=== PATIENT | female | born 1945 | race Caucasian/White ===

== ENCOUNTER 2016-08-26 11:28 | Inpatient (IN) | payer MEDICARE ==
[~2016-08-26] VITALS: Ht 165.1 cm; Wt 68.0 kg
[2016-08-26 11:30] VITALS: BP 145/66
[2016-08-26] MEDS ORDERED: Acetaminophen 650 MG SUPP RECTAL ONE ×2 (11:38→12:30)
[2016-08-26] MEDS ORDERED: CITALOPRAM HBR20 M1 ORAL (11:53)
[2016-08-26] MEDS ORDERED: ADVAIR 100-501 EACH INH (11:53)
[2016-08-26] MEDS ORDERED: ATORVASTATIN CA20 MG ORAL (11:53)
[2016-08-26] MEDS ORDERED: NAMENDA5 MG ORAL (11:53)
[2016-08-26] MEDS ORDERED: ASPIR 8181 MG ORAL (11:53)
[2016-08-26] MEDS ORDERED: AMLODIPINE BESY10 MG ORAL (11:53)
[2016-08-26] MEDS ORDERED: ABILIFY15 MG ORAL (11:53)
[2016-08-26 11:56] LABS: BASOPHILS % (AUTO) 0.4 % (0.0-2.0); LYMPHOCYTES % (AUTO) 13.3 % (20.0-45.0); MEAN CORPUSCULAR HEMOGLOBIN 32.2 PG (27.0-31.0); MEAN CORPUSCULAR HGB CONC 34.1 G/DL (32.0-36.0); MEAN CORPUSCULAR VOLUME 94 FL (80-99); MEAN PLATELET VOLUME 6.1 FL (6.5-10.1); MONOCYTES % (AUTO) 9.9 % (1.0-10.0); NEUTROPHILS % (AUTO) 76.4 % (45.0-75.0); PLATELET COUNT 341 K/UL (150-450); RED BLOOD COUNT 4.64 M/UL (4.20-5.40); RED CELL DISTRIBUTION WIDTH 11.3 % (11.6-14.8); WHITE BLOOD COUNT 16.5 K/UL (4.8-10.8)
[2016-08-26 12:09] LABS: APPEARANCE,URINE CLEAR; KETONES,URINE NEGATIVE (NEGATIVE); LEUKOCYTE ESTERASE ,URINE NEGATIVE (NEGATIVE); NITRITE,URINE NEGATIVE (NEGATIVE); PH,URINE 5 (4.5-8.0); PROTEIN,URINE 2+ (NEGATIVE); UROBILINOGEN,URINE NORMAL MG/DL (0.0-1.0)
[2016-08-26 12:10] LABS: TROPONIN I < 0.30 ng/mL (<=0.30)
[2016-08-26 12:11] LABS: ALBUMIN/GLOBULIN RATIO 1.5 (1.0-2.7); CALCIUM 9.8 mg/dL (8.6-10.2); CREATININE 1.1 mg/dL (0.5-0.9); GLOMERULAR FILTRATION RATE 49.3 mL/min (>60)
[2016-08-26] MEDS ORDERED: Piperacillin/Tazobactam 3.375 GM in NS 110 ML IVPB ONE (12:15)
[2016-08-26] MEDS ORDERED: Vancomycin 1 GM in NS 275 ML IVPB ONE (12:15)
[2016-08-26 12:16] LABS: REFLEX LACTIC ACID YES OR NO YES
--- NOTE | 2016-08-26 12:22 | Emergency Room Report ---
History of Present Illness General Chief Complaint: Altered Level of Consciousness Source: Medical Record, EMS (CAROLYN VARELA) Present Illness HPI The patient is a 71 yo F BIBA from [facility] presenting for ALOC. She has an extensive medical history including encephalopathy, dementia, HTN, COPD, hyperlipidemia. She is currently unable to provide history and responds sparsely with "yes" and "no". She denies any pain including CP and abd pain. She also denies BROWN, neck pain, SOB. Daughter has arrived and states that this is not typical for the patient as she is usually more verbal and more active. (CAROLYN VARELA P.A.) Allergies: Coded Allergies: NIACIN (Verified Allergy, Unknown, 08/26/16) Patient History Past Medical History: see triage record Pertinent Family History: none Reviewed Nursing Documentation: PMH: Agreed, PSxH: Agreed (CAROLYN VARELA P.AEmma) Nursing Documentation-PMH Past Medical History: No History, Except For Hx Hypertension: Yes Hx COPD: Yes (CAROLYN VARELA P.AEmma) Review of Systems All Other Systems: negative except mentioned in HPI (CAROLYN VARELA P.A.) Physical Exam Vital Signs Date Time Temp Pulse Resp B/P Pulse Ox O2 Delivery O2 Flow Rate FiO2 08/26/16 11:25 102.4 107 16 137/70 95 Room Air Sp02 EP Interpretation: reviewed, normal General Appearance: no apparent distress, GCS 15, lethargic Head: normocephalic, atraumatic Eyes: bilateral eye PERRL ENT: hearing grossly normal, no angioedema, uvula midline, other - dry mucus membranes Neck: normal inspection, thyroid normal, no bony tend, other - stiffness Respiratory: normal inspection, chest non-tender, lungs clear, normal breath sounds, no respiratory distress, no retraction, no accessory muscle use, no wheezing Cardiovascular #1: no edema, normal capillary refill, tachycardia, systolic murmur Gastrointestinal: normal bowel sounds, soft, no mass, non-distended, no guarding, no hernia Genitourinary: normal inspection, no CVA tenderness Musculoskeletal: back normal, other - lower extremity weakness. Unable to ambulate Neurologic: alert, responsive, sensory intact, motor weakness - lower extremeties Psychiatric: depressed affect Skin: normal color, no rash, normal turgor, other - hot to the touch Lymphatic: no adenopathy (CAROLYN VARELA P.A.) Procedures Lumbar Puncture Consent: Written - daughter Location: L4-L5 Anesthesia: 1% Lidocaine Volume Anesthetic (ccs): 5 Prep: bedadine Needle Size: 2 1/2 CSF: clear Post-Procedure: recumbent position Attempts: One Complications: none Patient Tolerated: Well (QUOC VARELAY P.A.) Medical Decision Making Diagnostic Impression: Primary Impression: Altered level of consciousness Additional Impression: Severe sepsis ER Course The pt is a 71 yo F presenting from nursing facility for F and ALOC DDx considered but not limited to: UTI, PNA, meningitis, CVA, among others PE: Febrile and tachycardic. NAD. Lethargic. L eye closed. No facial drooping + nuchal rigidity Lungs CTA bilat systolic murmur Skin is hot and dry. No ulcer. No erythema No edema Unable to move lower extremities CBC: leukocytosis with left shift CMP: Elevated AST/ALT CKMB elevated Lactate elevated UA: unremarkable CXR unremarkable Endorsed to Dr. Cast at 1330 for sepsis of unknown source at this time No obvious source of infection was found including urinalysis and CXR. Due to ALOC and stiff neck, LP will be performed. Pt was started on antibiotics and steroids prior to procedure. Written consent was obtained from daughter. The patient was prepped and draped in sterile fashion. The area was anesthetized with 1% lidocaine with out epinephrine. The needle was inserted at L4-L5. 4 sterile tubes were filled with 1mL of CSF. The needle was then removed and bandage was placed.Patient tolerated the procedure well and there were no complications CSF was clear. The pt will be admitted in serious but stable condition. Laboratory Tests Test 08/26/16 11:30 08/26/16 11:50 White Blood Count 16.5 K/UL (4.8-10.8) H Red Blood Count 4.64 M/UL (4.20-5.40) Hemoglobin 14.9 G/DL (12.0-16.0) Hematocrit 43.7 % (37.0-47.0) Mean Corpuscular Volume 94 FL (80-99) Mean Corpuscular Hemoglobin 32.2 PG (27.0-31.0) H Mean Corpuscular Hemoglobin Concent 34.1 G/DL (32.0-36.0) Red Cell Distribution Width 11.3 % (11.6-14.8) L Platelet Count 341 K/UL (150-450) Mean Platelet Volume 6.1 FL (6.5-10.1) L Neutrophils (%) (Auto) 76.4 % (45.0-75.0) H Lymphocytes (%) (Auto) 13.3 % (20.0-45.0) L Monocytes (%) (Auto) 9.9 % (1.0-10.0) Eosinophils (%) (Auto) 0.0 % (0.0-3.0) Basophils (%) (Auto) 0.4 % (0.0-2.0) Sodium Level 147 mEQ/L (135-145) H Potassium Level 3.0 mEQ/L (3.4-4.9) L Chloride Level 106 mEQ/L (98-107) Carbon Dioxide Level 25 mEQ/L (20-30) Anion Gap 16 (5-15) H Blood Urea Nitrogen 39 mg/dL (7-23) H Creatinine 1.1 mg/dL (0.5-0.9) H Estimate Glomerular Filtration Rate 49.3 mL/min (>60) Glucose Level 161 mg/dL (74-106) H Lactic Acid Level 2.70 mmol/L (0.66-2.22) H Calcium Level 9.8 mg/dL (8.6-10.2) Total Bilirubin 0.9 mg/dL (0.0-1.2) Aspartate Amino Transferase (AST) 140 U/L (5-40) H Alanine Aminotransferase (ALT) 74 U/L (3-33) H Alkaline Phosphatase 46 U/L (35-104) Total Creatine Kinase Pending Creatine Kinase MB 8.0 ng/mL (< 3.8) H Troponin I < 0.30 ng/mL (<=0.30) Total Protein 7.0 g/dL (6.6-8.7) Albumin 4.3 g/dL (3.5-5.2) Globulin 2.7 g/dL Albumin/Globulin Ratio 1.5 (1.0-2.7) Urine Color Yellow Urine Appearance Clear Urine pH 5 (4.5-8.0) Urine Specific [place] 1.020 (1.005-1.035) Urine Protein 2+ (NEGATIVE) H Urine Glucose (UA) Negative (NEGATIVE) Urine Ketones Negative (NEGATIVE) Urine Occult Blood 1+ (NEGATIVE) H Urine Nitrite Negative (NEGATIVE) Urine Bilirubin Negative (NEGATIVE) Urine Urobilinogen Normal MG/DL (0.0-1.0) Urine Leukocyte Esterase Negative (NEGATIVE) Urine RBC 0-2 /HPF (0 - 2) Urine WBC 0-2 /HPF (0 - 2) Urine Squamous Epithelial Cells Few /LPF (NONE/OCC) Urine Bacteria Few /HPF (NONE) Lab Results Impression CBC: leukocytosis with left shift CMP: Elevated AST/ALT CKMB elevated Lactate elevated UA: unremarkable (CAROLYN VARELA) ER Course Please see the note by Dr. Edmonds. The patient underwent a lumbar puncture. 2 WBC and 43 red cells. Protein and glucose are normal. This excludes bacterial meningitis. The patient is improving with her mentation and states that she wants to eat. I am uncomfortable about this as her mentation, though improved, is still not baseline. Also some history of musculoskeletal weakness. We will continue IV hydration. Need to repeat a temperature as she's feeling cold. Patient is improved but still ill and being admitted to telemetry bed. Patient had chills. Tylenol as repeated and also IV hydration was continued. The daughter states that [facility] the [facility] told her that she had a gallstone. The patient is examined and there is no abdominal tenderness at this time. LFTs are slightly elevated but bilirubin is normal. In addition the daughter states that a yazidism there is a question whether the patient has Parkinson's. CT ordered. + CVA - unclear when this occurred - not hyperacute Improved and admitted to [facility]. Laboratory Tests Test 08/26/16 11:30 08/26/16 11:50 08/26/16 14:09 08/26/16 14:13 White Blood Count 16.5 K/UL (4.8-10.8) H Red Blood Count 4.64 M/UL (4.20-5.40) Hemoglobin 14.9 G/DL (12.0-16.0) Hematocrit 43.7 % (37.0-47.0) Mean Corpuscular Volume 94 FL (80-99) Mean Corpuscular Hemoglobin 32.2 PG (27.0-31.0) H Mean Corpuscular Hemoglobin Concent 34.1 G/DL (32.0-36.0) Red Cell Distribution Width 11.3 % (11.6-14.8) L Platelet Count 341 K/UL (150-450) Mean Platelet Volume 6.1 FL (6.5-10.1) L Neutrophils (%) (Auto) 76.4 % (45.0-75.0) H Lymphocytes (%) (Auto) 13.3 % (20.0-45.0) L Monocytes (%) (Auto) 9.9 % (1.0-10.0) Eosinophils (%) (Auto) 0.0 % (0.0-3.0) Basophils (%) (Auto) 0.4 % (0.0-2.0) Sodium Level 147 mEQ/L (135-145) H Potassium Level 3.0 mEQ/L (3.4-4.9) L Chloride Level 106 mEQ/L (98-107) Carbon Dioxide Level 25 mEQ/L (20-30) Anion Gap 16 (5-15) H Blood Urea Nitrogen 39 mg/dL (7-23) H Creatinine 1.1 mg/dL (0.5-0.9) H Estimate Glomerular Filtration Rate 49.3 mL/min (>60) Glucose Level 161 mg/dL (74-106) H Lactic Acid Level 2.70 mmol/L (0.66-2.22) H Calcium Level 9.8 mg/dL (8.6-10.2) Total Bilirubin 0.9 mg/dL (0.0-1.2) Aspartate Amino Transferase (AST) 140 U/L (5-40) H Alanine Aminotransferase (ALT) 74 U/L (3-33) H Alkaline Phosphatase 46 U/L (35-104) Total Creatine Kinase 4434 U/L (26-140) H Creatine Kinase MB 8.0 ng/mL (< 3.8) H Creatine Kinase MB Relative Index 0.1 Troponin I < 0.30 ng/mL (<=0.30) Total Protein 7.0 g/dL (6.6-8.7) Albumin 4.3 g/dL (3.5-5.2) Globulin 2.7 g/dL Albumin/Globulin Ratio 1.5 (1.0-2.7) Urine Color Yellow Urine Appearance Clear Urine pH 5 (4.5-8.0) Urine Specific [place] 1.020 (1.005-1.035) Urine Protein 2+ (NEGATIVE) H Urine Glucose (UA) Negative (NEGATIVE) Urine Ketones Negative (NEGATIVE) Urine Occult Blood 1+ (NEGATIVE) H Urine Nitrite Negative (NEGATIVE) Urine Bilirubin Negative (NEGATIVE) Urine Urobilinogen Normal MG/DL (0.0-1.0) Urine Leukocyte Esterase Negative (NEGATIVE) Urine RBC 0-2 /HPF (0 - 2) Urine WBC 0-2 /HPF (0 - 2) Urine Squamous Epithelial Cells Few /LPF (NONE/OCC) Urine Bacteria Few /HPF (NONE) CSF Glucose 88 mg/dL (50-80) H CSF Total Protein 33 mg/dL (15-45) CSF Appearance Clear CSF Color Colorless CSF WBC 2 /CU MM (0-5) CSF RBC 43 /CU MM CSF Neutrophils % % CSF Lymphocytes % % CSF Monocytes % % CSF Crenated Cells 0 % CSF VDRL Pending Test 08/26/16 15:05 Lactic Acid Level 1.30 mmol/L (0.66-2.22) Ammonia 28 umol/L (11-51) Microbiology Date/Time Source Procedure Growth Status 08/26/16 11:50 Nasal Nares Influenza Types A,B Antigen (CORRINE) - Final Complete (Joo Tatum M.D.) Chest X-Ray Diagnostic Results EP Interpretation: Yes Findings: no consolidation, no effusion, no pneumothorax, no acute cardiopulmonary disease Number of Views: 1 PA Scribe Text Interpretation of chest xrays are there is no consolidation, no effusion, no acute cardiopulmonary disease, no pneumothorax (CAROLYN VARELA P.A.) Last Vital Signs Date Time Temp Pulse Resp B/P Pulse Ox O2 Delivery O2 Flow Rate FiO2 08/26/16 11:30 103.4 113 24 145/66 97 Room Air Status: improved (CAROLYN VARELA P.A.) Last Vital Signs Date Time Temp Pulse Resp B/P Pulse Ox O2 Delivery O2 Flow Rate FiO2 08/26/16 14:30 100.1 73 18 129/52 99 Room Air Status: improved (Joo Tatum M.D.) Disposition: ADMITTED INPATIENT Condition: Serious Referrals: NON PHYSICIAN (PCP) CAROLYN VARELA P.AEmma Aug 26, 2016 12:22 Joo Tatum M.D. Aug 26, 2016 16:05
[2016-08-26 12:24] LABS: BACTERIA,URINE FEW /HPF; RBC,URINE 0-2 /HPF (0 - 2); SQUAMOUS EPITHELIAL CELL,UR FEW /LPF (NONE/OCC); WBC,URINE 0-2 /HPF (0 - 2)
[2016-08-26] MEDS ORDERED: Tubing IV Secondary IV ONE (12:31)
[2016-08-26] MEDS ORDERED: NS 55 ML IV ONE (12:31)
[2016-08-26] MEDS ORDERED: Zosyn 3.375gm inj ONE (12:31)
[2016-08-26] MEDS ORDERED: Vancomycin 1gm inj IVPB ONE (12:31)
[2016-08-26] MEDS ORDERED: Tubing IV Cassette IV ONE (12:31)
[2016-08-26] MEDS ORDERED: NS 275 ML ONE (12:31)
[2016-08-26] MEDS ORDERED: Unasyn 3gm Inj IVPB ONE (13:15)
[2016-08-26] MEDS ORDERED: Solu-MEDROL 125mg Inj ONE (13:32)
[2016-08-26] MEDS ORDERED: Solu-MEDROL 125mg Inj IVP ONE (13:45)
[2016-08-26 14:30] VITALS: BP 129/52
[2016-08-26 14:51] LABS: GLUCOSE,CSF 88 mg/dL (50-80)
[2016-08-26 14:52] LABS: APPEARANCE,CSF CLEAR; COLOR,CSF COLORLESS
[2016-08-26 14:53] LABS: WHITE BLOOD CELL,CSF 2 /CU MM (0-5)
[2016-08-26] MEDS ORDERED: Unasyn 3gm/NS 110ml IVPB ONE ×2 (15:15)
--- NOTE | 2016-08-26 15:20 | Diagnostic Imaging Report ---
Indication: Chest Pain Comparison: None A single view chest radiograph was obtained. Findings: Cardiomediastinal appearance is within normal limits for age. Pulmonary vascularity is appropriate. The diaphragmatic contour is smooth and costophrenic angles are sharp. No pleural effusions are identified. The bones are osteopenic. Impression: No acute findings
[2016-08-26] MEDS ORDERED: DuoNeb 0.5-3(2.5)mg/3ml neb HHN PRN (15:30)
[2016-08-26] MEDS ORDERED: Miralax 17gm pkt ORAL PRN (15:30)
[2016-08-26] MEDS ORDERED: Mylanta II UD 30ml ORAL PRN (15:30)
[2016-08-26] MEDS ORDERED: Promethazine/Codeine 5ml UD ORAL PRN (15:30)
[2016-08-26] MEDS ORDERED: Nitroglycerin Subl 0.4mg tab (Bottle Of 25) SL PRN (15:30)
[2016-08-26 16:00] VITALS: BP 131/89
[2016-08-26] MEDS ORDERED: Acetaminophen 650 MG SUPP RECTAL PRN (16:15)
--- NOTE | 2016-08-26 19:26 | History and Physical ---
History of Present Illness General Date patient seen: Aug 26, 2016 Reason for Hospitalization: Altered Level of Consciousness Present Illness HPI 71 year old female with end stage dementia, extensive medical history including HTN, COPDbed bound BIBA from an assisted living for ALOC. She is currently unable to provide history and responds sparsely with "yes" and "no". She is admitted fo ALOC and possible sepsis. Allergies: Coded Allergies: NIACIN (Verified Allergy, Unknown, 08/26/16) Medication History Scheduled Amlodipine Besylate* (Amlodipine Besylate*), 10 MG ORAL DAILY, (Reported) Aripiprazole* (Abilify*), 15 MG ORAL DAILY, (Reported) Aspirin* (Aspir 81*), 81 MG ORAL DAILY, (Reported) Atorvastatin Calcium* (Atorvastatin Calcium*), 10 MG ORAL BEDTIME, (Reported) Citalopram Hydrobromide* (Citalopram Hbr*), 20 MG ORAL DAILY, (Reported) Fluticasone/Salmeterol (Advair 100-50 Diskus), 1 PUFF INH EVERY 12 HOURS, ( Reported) Memantine Hcl* (Namenda*), 5 MG ORAL TWICE A DAY, (Reported) Patient History Healthcare decision maker Resuscitation status Advanced Directive on File Past Medical/Surgical History Past Medical/Surgical History: (1) Dementia (2) COPD (chronic obstructive pulmonary disease) Review of Systems All Other Systems: negative except mentioned in HPI Physical Exam Lines, tubes and drains: peripheral HEENT: normocephalic, atraumatic Neck: non-tender, normal alignment Respiratory/Chest: chest wall non-tender, lungs clear Breasts: no masses Cardiovascular/Chest: normal peripheral pulses, normal rate Abdomen: normal bowel sounds, non tender Genitourinary/Rectal: normal genital exam Extremities: normal range of motion, non-tender Neurologic: buckle coverer II-XII grossly normal Last 24 Hour Vital Signs Date Time Temp Pulse Resp B/P Pulse Ox O2 Delivery O2 Flow Rate FiO2 08/26/16 17:32 100.0 86 16 131/89 99 Room Air 08/26/16 16:00 100.0 86 16 131/89 99 Room Air 08/26/16 14:30 100.1 73 18 129/52 99 Room Air 08/26/16 14:30 100.1 08/26/16 11:30 103.4 113 24 145/66 97 Room Air 08/26/16 11:25 102.4 107 16 137/70 95 Room Air Laboratory Tests Test 08/26/16 11:30 08/26/16 11:50 08/26/16 14:09 08/26/16 14:13 White Blood Count 16.5 K/UL (4.8-10.8) H Red Blood Count 4.64 M/UL (4.20-5.40) Hemoglobin 14.9 G/DL (12.0-16.0) Hematocrit 43.7 % (37.0-47.0) Mean Corpuscular Volume 94 FL (80-99) Mean Corpuscular Hemoglobin 32.2 PG (27.0-31.0) H Mean Corpuscular Hemoglobin Concent 34.1 G/DL (32.0-36.0) Red Cell Distribution Width 11.3 % (11.6-14.8) L Platelet Count 341 K/UL (150-450) Mean Platelet Volume 6.1 FL (6.5-10.1) L Neutrophils (%) (Auto) 76.4 % (45.0-75.0) H Lymphocytes (%) (Auto) 13.3 % (20.0-45.0) L Monocytes (%) (Auto) 9.9 % (1.0-10.0) Eosinophils (%) (Auto) 0.0 % (0.0-3.0) Basophils (%) (Auto) 0.4 % (0.0-2.0) Sodium Level 147 mEQ/L (135-145) H Potassium Level 3.0 mEQ/L (3.4-4.9) L Chloride Level 106 mEQ/L (98-107) Carbon Dioxide Level 25 mEQ/L (20-30) Anion Gap 16 (5-15) H Blood Urea Nitrogen 39 mg/dL (7-23) H Creatinine 1.1 mg/dL (0.5-0.9) H Estimat Glomerular Filtration Rate 49.3 mL/min (>60) Glucose Level 161 mg/dL (74-106) H Lactic Acid Level 2.70 mmol/L (0.66-2.22) H Calcium Level 9.8 mg/dL (8.6-10.2) Total Bilirubin 0.9 mg/dL (0.0-1.2) Aspartate Amino Transf (AST/SGOT) 140 U/L (5-40) H Alanine Aminotransferase (ALT/SGPT) 74 U/L (3-33) H Alkaline Phosphatase 46 U/L (35-104) Total Creatine Kinase 4434 U/L (26-140) H Creatine Kinase MB 8.0 ng/mL (< 3.8) H Creatine Kinase MB Relative Index 0.1 Troponin I < 0.30 ng/mL (<=0.30) Total Protein 7.0 g/dL (6.6-8.7) Albumin 4.3 g/dL (3.5-5.2) Globulin 2.7 g/dL Albumin/Globulin Ratio 1.5 (1.0-2.7) Urine Color Yellow Urine Appearance Clear Urine pH 5 (4.5-8.0) Urine Specific [place] 1.020 (1.005-1.035) Urine Protein 2+ (NEGATIVE) H Urine Glucose (UA) Negative (NEGATIVE) Urine Ketones Negative (NEGATIVE) Urine Occult Blood 1+ (NEGATIVE) H Urine Nitrite Negative (NEGATIVE) Urine Bilirubin Negative (NEGATIVE) Urine Urobilinogen Normal MG/DL (0.0-1.0) Urine Leukocyte Esterase Negative (NEGATIVE) Urine RBC 0-2 /HPF (0 - 2) Urine WBC 0-2 /HPF (0 - 2) Urine Squamous Epithelial Cells Few /LPF (NONE/OCC) Urine Bacteria Few /HPF (NONE) CSF Glucose 88 mg/dL (50-80) H CSF Total Protein 33 mg/dL (15-45) CSF Appearance Clear CSF Color Colorless CSF WBC 2 /CU MM (0-5) CSF RBC 43 /CU MM CSF Neutrophils % % CSF Lymphocytes % % CSF Monocytes % % CSF Crenated Cells 0 % CSF VDRL Pending Test 08/26/16 15:05 Lactic Acid Level 1.30 mmol/L (0.66-2.22) Ammonia 28 umol/L (11-51) Microbiology Date/Time Source Procedure Growth Status 08/26/16 14:13 Cerebral Spinal Fluid Gram Stain - Final Resulted 08/26/16 14:13 Cerebral Spinal Fluid CSF Culture Pending Resulted 08/26/16 11:50 Nasal Nares Influenza Types A,B Antigen (CORRINE) - Final Complete Height (Feet): 5 Height (Inches): 5.00 Weight (Pounds): 150 Medications Current Medications Medications (Trade) Dose Ordered Sig/Mariluz Route PRN Reason Start Time Stop Time Status Last Admin Dose Admin Acetaminophen (Tylenol) 650 mg Q4H PRN ORAL fever 08/26/16 15:30 09/25/16 15:29 Al Hydroxide/Mg Hydroxide (Mylanta II) 30 ml Q6H PRN ORAL dyspepsia 08/26/16 15:30 09/25/16 15:29 Albuterol/ Ipratropium 3 ml 3 ml EVERY 4 HOURS PRN HHN Shortness of Breath 08/26/16 15:30 08/31/16 15:29 Amlodipine Besylate (Norvasc) 10 mg DAILY ORAL 08/27/16 09:00 09/26/16 08:59 Aripiprazole (Abilify) 15 mg DAILY ORAL 08/27/16 09:00 09/26/16 08:59 Cefepime HCl/ Dextrose (Maxipime/D5W) 55 ml @ 110 mls/hr EVERY 12 HOURS IV 08/26/16 21:00 09/02/16 20:59 Heparin Sodium (Porcine) (Heparin 5000 units/ml) 5,000 units EVERY 12 HOURS SUBQ 08/26/16 21:00 09/25/16 20:59 Memantine (Namenda) 5 mg Q12HR ORAL 08/26/16 21:00 09/25/16 20:59 Nitroglycerin (Ntg) 0.4 mg Q5M PRN SL Prn Chest Pain 08/26/16 15:30 09/25/16 15:29 Ondansetron HCl (Zofran) 4 mg Q6H PRN IVP Nausea & Vomiting 08/26/16 15:30 09/25/16 15:29 Polyethylene Glycol (Miralax) 17 gm DAILYPRN PRN ORAL Constipation 08/26/16 15:30 09/25/16 15:29 Promethazine HCl/ Codeine (Phenergan with Codeine) 5 ml Q4H PRN ORAL For Cough 08/26/16 15:30 09/25/16 15:29 Temazepam (Restoril) 15 mg HSPRN PRN ORAL Insomnia 08/26/16 15:30 09/02/16 15:29 Vancomycin HCl 1 ea 1 ea DAILY PRN MISC Per rx protocol 08/26/16 15:30 09/25/16 15:29 Vancomycin HCl/ Dextrose (Vancomycin/D5W) 275 ml @ 183.333 mls/hr Q24H IVPB 08/27/16 06:00 09/01/16 05:59 Assessment/Plan Problem List: (1) Severe sepsis ICD Codes: A41.9 - Sepsis, unspecified organism; R65.20 - Severe sepsis without septic shock SNOMED: 30908148 (2) Altered level of consciousness ICD Codes: R40.4 - Transient alteration of awareness SNOMED: 5134244 (3) COPD (chronic obstructive pulmonary disease) ICD Codes: J44.9 - Chronic obstructive pulmonary disease, unspecified SNOMED: 07046590 (4) Dementia ICD Codes: F03.90 - Unspecified dementia without behavioral disturbance SNOMED: 98177577 Assessment/Plan IV fluids IV antibiotics NPO check electrolytes social economist CHERYL CHRISTIAN Aug 26, 2016 19:26
[2016-08-26 20:00] VITALS: BP 151/88
[2016-08-26] MEDS: Heparin 5000 units/ml inj SUBQ SCH (20:21)
[2016-08-26] MEDS: Cefepime HCl 1 GM in D5W 55 ML IV SCH (20:22)
[2016-08-26] MEDS: Memantine 5 MG TAB ORAL SCH (20:22)
[2016-08-26] MEDS ORDERED: Heparin 5000 units/ml inj SUBQ SCH (21:00)
--- NOTE | 2016-08-26 23:32 | Consultation ---
Consult Note Consult Note [id number] SAMREEN ORO M.D. Aug 26, 2016 23:32
[2016-08-27] VITALS: BP 153/74
[2016-08-27] MEDS: Acetaminophen 650 MG SUPP RECTAL PRN ×4 (00:24→20:45)
[2016-08-27 04:09] VITALS: BP 158/88
[2016-08-27] MEDS: Vancomycin 1250mg/D5W 275ml IVPB SCH ×2 (05:00)
--- NOTE | 2016-08-27 06:45 | Consultation ---
DATE OF CONSULTATION: REQUESTING PHYSICIAN: Evangelist Cast M.D. REASON FOR CONSULTATION: Evaluation of the patient for sepsis, fever, leukocytosis, and antibiotic management. HISTORY OF PRESENT ILLNESS: The patient is a 71-year-old female with multiple medical problems, who was brought from long term facility mental status. The patient was found to have fever and leukocytosis. Infectious Disease consultation has been requested for further evaluation of the patient and antibiotic management. PAST MEDICAL HISTORY: 1. Hypertension. 2. Dementia. 3. COPD. 4. Hyperlipidemia. MEDICATIONS: IV vancomycin and cefepime. ALLERGIES: Niacin. FAMILY HISTORY: Not available. REVIEW OF SYSTEMS: Unobtainable. PHYSICAL EXAMINATION: VITAL SIGNS: Temperature 100 degrees, blood pressure 151/68, pulse 66, respiratory rate 18, and T-max 102 degrees. HEENT: Mild pale conjunctivae. No icterus. NECK: No lymphadenopathy. CHEST: Coarse breathing sounds. HEART: S1 and S2. ABDOMEN: Soft and nontender. EXTREMITIES: No cyanosis. LABORATORY AND DIAGNOSTIC DATA: White blood cells 16.4, hemoglobin 14, and platelets 341,000. UA is unremarkable. BUN 39 and creatinine 1.9. mildly elevated and alkaline phosphatase 46. Influenza test negative. CSF culture is pending. CSF showed only two white blood cells with normal protein. Chest x-ray, no acute infiltrate. ASSESSMENT: The patient is a 71-year-old female with multiple medical problems, who has been admitted to this medical center with sepsis and altered level of consciousness. CSF did not show any evidence of meningitis. Also, the patient has: 1. Fever. 2. Leukocytosis. 3. Mild elevation of liver enzymes, rule out cholecystitis. 4. No evidence of meningitis. PLAN: 1. We will continue the patient on vancomycin and cefepime. 2. Monitor CBC. 3. Monitor BNP. 4. Monitor cultures (blood and urine). 5. Ultrasound of the abdomen, rule out cholecystitis. 6. Based on the patient's clinical course and labs, we will do further recommendations. Thank you, Dr. Cast, for allowing me to participate in the care of this patient. I will follow the patient with you. Red Estes M.D. DR: Chau JOB#: [id number] CC:
[2016-08-27 07:47] LABS: BASOPHILS % (AUTO) 0.4 % (0.0-2.0); LYMPHOCYTES % (AUTO) 21.4 % (20.0-45.0); MEAN CORPUSCULAR HEMOGLOBIN 32.8 PG (27.0-31.0); MEAN CORPUSCULAR HGB CONC 34.5 G/DL (32.0-36.0); MEAN CORPUSCULAR VOLUME 95 FL (80-99); MEAN PLATELET VOLUME 7.4 FL (6.5-10.1); MONOCYTES % (AUTO) 11.5 % (1.0-10.0); NEUTROPHILS % (AUTO) 66.7 % (45.0-75.0); PLATELET COUNT 248 K/UL (150-450); RED BLOOD COUNT 4.01 M/UL (4.20-5.40); RED CELL DISTRIBUTION WIDTH 11.3 % (11.6-14.8); WHITE BLOOD COUNT 12.2 K/UL (4.8-10.8)
[2016-08-27 08:00] VITALS: BP 135/95
[2016-08-27 08:01] LABS: ANION GAP 15 (5-15); CALCIUM 8.9 mg/dL (8.6-10.2); CARBON DIOXIDE 25 mEQ/L (20-30); CHLORIDE 114 mEQ/L (98-107); CREATININE 0.8 mg/dL (0.5-0.9); GLOMERULAR FILTRATION RATE > 60 mL/min (>60); HEMOLYSIS 6; PHOSPHORUS 2.6 mg/dL (2.5-4.8); POTASSIUM 3.1 mEQ/L (3.4-4.9); SODIUM 154 mEQ/L (135-145)
--- NOTE | 2016-08-27 08:38 | Diagnostic Imaging Report ---
Indications: Altered level of consciousness Technique: Spiral acquisitions obtained through the brain. Angled axial and coronal 5 x 5 mm slices were reconstructed. Total dose length product 1393 mGycm. CTDI vol(s) 70 mGy. Dose reduction achieved using automated exposure control Comparison: None Findings: There is marked age-related enlargement of the ventricles and extra axial CSF spaces. There is periventricular deep white matter chronic ischemic change. Old infarct is seen in the high right parietal lobe posteriorly. Old lacunar infarct is seen in the left basal ganglia. No acute hemorrhage or edema. No mass effect nor midline shift. Otherwise normal bynum-white differentiation. Visualized orbits and sinuses are unremarkable. Tach calvarium. Impression: Chronic and age-related changes, as described. Multiple old infarcts Negative for acute intracranial bleed or mass effect This agrees with the preliminary interpretation provided overnight by [facility] teleradiology service. The CT scanner at [facility] is accredited by the [employer] and the scans are performed using protocols designed to limit radiation exposure to as low as reasonably achievable to attain images of sufficient resolution adequate for diagnostic evaluation.
[2016-08-27] MEDS: Memantine 5 MG TAB ORAL SCH (09:30)
[2016-08-27] MEDS: Heparin 5000 units/ml inj SUBQ SCH ×2 (09:32→20:23)
[2016-08-27] MEDS: Cefepime HCl 1 GM in D5W 55 ML IV SCH ×2 (09:40→21:50)
[2016-08-27 11:12] LABS: CSF COMMENT PATHOLOGIST COMMENT
--- NOTE | 2016-08-27 11:30 | Infectious Diseases Prog Note ---
Assessment/Plan Assessment/Plan HISTORY OF PRESENT ILLNESS: The patient is a 71-year-old female with Fever Leukocytosis improving Mild elevation of liver enzymes, rule out cholecystitis No evidence of meningitis Pneumonia : Chest x-ray, no acute infiltrate. Hypertension Dementia COPD Hyperlipidemia PLAN: cont on vancomycin and cefepime d# 2 Monitor CBC Monitor BNP Monitor cultures (blood and urine) Ultrasound of the abdomen, rule out cholecystitis Subjective Allergies: Coded Allergies: NIACIN (Verified Allergy, Unknown, 08/26/16) Objective Vital Signs Last 24 Hour Vital Signs Date Time Temp Pulse Resp B/P Pulse Ox O2 Delivery O2 Flow Rate FiO2 08/27/16 10:10 101.1 08/27/16 09:33 104 135/95 08/27/16 08:00 88 08/27/16 08:00 101.8 96 18 135/95 98 Room Air 08/27/16 07:16 74 20 Room Air 21 08/27/16 04:09 100.9 116 23 158/88 Room Air 08/27/16 04:00 114 08/27/16 00:00 96.4 107 18 153/74 96 Room Air 21 08/27/16 00:00 106 08/26/16 20:00 94 08/26/16 20:00 98.8 95 18 151/88 96 Room Air 21 08/26/16 19:36 90 22 Room Air 21 08/26/16 17:32 100.0 86 16 131/89 99 Room Air 08/26/16 16:00 100.0 86 16 131/89 99 Room Air 08/26/16 14:30 100.1 73 18 129/52 99 Room Air 08/26/16 14:30 100.1 08/26/16 11:30 103.4 113 24 145/66 97 Room Air 08/26/16 11:25 102.4 107 16 137/70 95 Room Air Height (Feet): 5 Height (Inches): 5.00 Weight (Pounds): 150 Microbiology Date/Time Source Procedure Growth Status 08/26/16 14:13 Cerebral Spinal Fluid Gram Stain - Final Resulted 08/26/16 14:13 Cerebral Spinal Fluid CSF Culture - Preliminary NO GROWTH AFTER 24 HOURS Resulted 08/26/16 11:50 Nasal Nares Influenza Types A,B Antigen (CORRINE) - Final Complete Laboratory Tests Test 08/26/16 11:30 08/26/16 11:50 08/26/16 14:09 08/26/16 14:13 White Blood Count 16.5 K/UL (4.8-10.8) H Red Blood Count 4.64 M/UL (4.20-5.40) Hemoglobin 14.9 G/DL (12.0-16.0) Hematocrit 43.7 % (37.0-47.0) Mean Corpuscular Volume 94 FL (80-99) Mean Corpuscular Hemoglobin 32.2 PG (27.0-31.0) H Mean Corpuscular Hemoglobin Concent 34.1 G/DL (32.0-36.0) Red Cell Distribution Width 11.3 % (11.6-14.8) L Platelet Count 341 K/UL (150-450) Mean Platelet Volume 6.1 FL (6.5-10.1) L Neutrophils (%) (Auto) 76.4 % (45.0-75.0) H Lymphocytes (%) (Auto) 13.3 % (20.0-45.0) L Monocytes (%) (Auto) 9.9 % (1.0-10.0) Eosinophils (%) (Auto) 0.0 % (0.0-3.0) Basophils (%) (Auto) 0.4 % (0.0-2.0) Sodium Level 147 mEQ/L (135-145) H Potassium Level 3.0 mEQ/L (3.4-4.9) L Chloride Level 106 mEQ/L (98-107) Carbon Dioxide Level 25 mEQ/L (20-30) Anion Gap 16 (5-15) H Blood Urea Nitrogen 39 mg/dL (7-23) H Creatinine 1.1 mg/dL (0.5-0.9) H Estimat Glomerular Filtration Rate 49.3 mL/min (>60) Glucose Level 161 mg/dL (74-106) H Lactic Acid Level 2.70 mmol/L (0.66-2.22) H Calcium Level 9.8 mg/dL (8.6-10.2) Total Bilirubin 0.9 mg/dL (0.0-1.2) Aspartate Amino Transf (AST/SGOT) 140 U/L (5-40) H Alanine Aminotransferase (ALT/SGPT) 74 U/L (3-33) H Alkaline Phosphatase 46 U/L (35-104) Total Creatine Kinase 4434 U/L (26-140) H Creatine Kinase MB 8.0 ng/mL (< 3.8) H Creatine Kinase MB Relative Index 0.1 Troponin I < 0.30 ng/mL (<=0.30) Total Protein 7.0 g/dL (6.6-8.7) Albumin 4.3 g/dL (3.5-5.2) Globulin 2.7 g/dL Albumin/Globulin Ratio 1.5 (1.0-2.7) Urine Color Yellow Urine Appearance Clear Urine pH 5 (4.5-8.0) Urine Specific [place] 1.020 (1.005-1.035) Urine Protein 2+ (NEGATIVE) H Urine Glucose (UA) Negative (NEGATIVE) Urine Ketones Negative (NEGATIVE) Urine Occult Blood 1+ (NEGATIVE) H Urine Nitrite Negative (NEGATIVE) Urine Bilirubin Negative (NEGATIVE) Urine Urobilinogen Normal MG/DL (0.0-1.0) Urine Leukocyte Esterase Negative (NEGATIVE) Urine RBC 0-2 /HPF (0 - 2) Urine WBC 0-2 /HPF (0 - 2) Urine Squamous Epithelial Cells Few /LPF (NONE/OCC) Urine Bacteria Few /HPF (NONE) CSF Glucose 88 mg/dL (50-80) H CSF Total Protein 33 mg/dL (15-45) CSF Appearance Clear CSF Color Colorless CSF WBC 2 /CU MM (0-5) CSF RBC 43 /CU MM CSF Neutrophils % % CSF Lymphocytes % % CSF Monocytes % % CSF Crenated Cells 0 % CSF Comment Pathologist comment CSF VDRL Pending Test 08/26/16 15:05 08/27/16 06:50 Lactic Acid Level 1.30 mmol/L (0.66-2.22) Ammonia 28 umol/L (11-51) White Blood Count 12.2 K/UL (4.8-10.8) H Red Blood Count 4.01 M/UL (4.20-5.40) L Hemoglobin 13.2 G/DL (12.0-16.0) Hematocrit 38.2 % (37.0-47.0) Mean Corpuscular Volume 95 FL (80-99) Mean Corpuscular Hemoglobin 32.8 PG (27.0-31.0) H Mean Corpuscular Hemoglobin Concent 34.5 G/DL (32.0-36.0) Red Cell Distribution Width 11.3 % (11.6-14.8) L Platelet Count 248 K/UL (150-450) Mean Platelet Volume 7.4 FL (6.5-10.1) Neutrophils (%) (Auto) 66.7 % (45.0-75.0) Lymphocytes (%) (Auto) 21.4 % (20.0-45.0) Monocytes (%) (Auto) 11.5 % (1.0-10.0) H Eosinophils (%) (Auto) 0.0 % (0.0-3.0) Basophils (%) (Auto) 0.4 % (0.0-2.0) Sodium Level 154 mEQ/L (135-145) H Potassium Level 3.1 mEQ/L (3.4-4.9) L Chloride Level 114 mEQ/L (98-107) H Carbon Dioxide Level 25 mEQ/L (20-30) Anion Gap 15 (5-15) Blood Urea Nitrogen 26 mg/dL (7-23) H Creatinine 0.8 mg/dL (0.5-0.9) Estimat Glomerular Filtration Rate > 60 mL/min (>60) Glucose Level 150 mg/dL (74-106) H Calcium Level 8.9 mg/dL (8.6-10.2) Phosphorus Level 2.6 mg/dL (2.5-4.8) Albumin 3.7 g/dL (3.5-5.2) Current Medications Medications (Trade) Dose Ordered Sig/Mariluz Route PRN Reason Start Time Stop Time Status Last Admin Dose Admin Acetaminophen (Tylenol) 650 mg Q4H PRN RECTAL Prn Headache/Temp > 101 08/27/16 00:15 09/26/16 00:14 08/27/16 09:40 Al Hydroxide/Mg Hydroxide (Mylanta II) 30 ml Q6H PRN ORAL dyspepsia 08/26/16 15:30 09/25/16 15:29 Albuterol/ Ipratropium 3 ml 3 ml EVERY 4 HOURS PRN HHN Shortness of Breath 08/26/16 15:30 08/31/16 15:29 Amlodipine Besylate (Norvasc) 10 mg DAILY ORAL 08/27/16 09:00 09/26/16 08:59 08/27/16 09:33 Aripiprazole (Abilify) 15 mg DAILY ORAL 08/27/16 09:00 09/26/16 08:59 08/27/16 09:30 Cefepime HCl/ Dextrose (Maxipime/D5W) 55 ml @ 110 mls/hr EVERY 12 HOURS IV 08/26/16 21:00 09/02/16 20:59 08/27/16 09:40 Heparin Sodium (Porcine) (Heparin 5000 units/ml) 5,000 units EVERY 12 HOURS SUBQ 08/26/16 21:00 09/25/16 20:59 08/27/16 09:32 Memantine (Namenda) 5 mg Q12HR ORAL 08/26/16 21:00 09/25/16 20:59 08/27/16 09:30 Nitroglycerin (Ntg) 0.4 mg Q5M PRN SL Prn Chest Pain 08/26/16 15:30 09/25/16 15:29 Ondansetron HCl (Zofran) 4 mg Q6H PRN IVP Nausea & Vomiting 08/26/16 15:30 09/25/16 15:29 Polyethylene Glycol (Miralax) 17 gm DAILYPRN PRN ORAL Constipation 08/26/16 15:30 09/25/16 15:29 Promethazine HCl/ Codeine (Phenergan with Codeine) 5 ml Q4H PRN ORAL For Cough 08/26/16 15:30 09/25/16 15:29 Temazepam (Restoril) 15 mg HSPRN PRN ORAL Insomnia 08/26/16 15:30 09/02/16 15:29 Vancomycin HCl 1 ea 1 ea DAILY PRN MISC Per rx protocol 08/26/16 15:30 09/25/16 15:29 Vancomycin HCl/ Dextrose (Vancomycin/D5W) 275 ml @ 183.333 mls/hr Q24H IVPB 08/27/16 06:00 09/01/16 05:59 08/27/16 05:00 SAMREEN ORO M.D. Aug 27, 2016 11:30
--- NOTE | 2016-08-27 11:34 | Infectious Diseases Prog Note ---
Assessment/Plan Assessment/Plan HISTORY OF PRESENT ILLNESS: The patient is a 71-year-old female with Fever Leukocytosis improving Mild elevation of liver enzymes, rule out cholecystitis No evidence of meningitis Pneumonia : Chest x-ray, no acute infiltrate. Hypertension Dementia COPD Hyperlipidemia PLAN: cont on vancomycin and cefepime d# 2 Monitor CBC Monitor BNP Monitor cultures (blood and urine) Ultrasound of the abdomen, rule out cholecystitis Subjective Allergies: Coded Allergies: NIACIN (Verified Allergy, Unknown, 08/26/16) Objective Vital Signs Last 24 Hour Vital Signs Date Time Temp Pulse Resp B/P Pulse Ox O2 Delivery O2 Flow Rate FiO2 08/27/16 10:10 101.1 08/27/16 09:33 104 135/95 08/27/16 08:00 88 08/27/16 08:00 101.8 96 18 135/95 98 Room Air 08/27/16 07:16 74 20 Room Air 21 08/27/16 04:09 100.9 116 23 158/88 Room Air 08/27/16 04:00 114 08/27/16 00:00 96.4 107 18 153/74 96 Room Air 21 08/27/16 00:00 106 08/26/16 20:00 94 08/26/16 20:00 98.8 95 18 151/88 96 Room Air 08/26/16 19:36 90 22 Room Air 21 08/26/16 17:32 100.0 86 16 131/89 99 Room Air 08/26/16 16:00 100.0 86 16 131/89 99 Room Air 08/26/16 14:30 100.1 73 18 129/52 99 Room Air 08/26/16 14:30 100.1 Height (Feet): 5 Height (Inches): 5.00 Weight (Pounds): 150 HEENT: anicteric Respiratory/Chest: no accessory muscle use Cardiovascular: no JVD Abdomen: no mass Skin: no lesions Microbiology Date/Time Source Procedure Growth Status 08/26/16 14:13 Cerebral Spinal Fluid Gram Stain - Final Resulted 08/26/16 14:13 Cerebral Spinal Fluid CSF Culture - Preliminary NO GROWTH AFTER 24 HOURS Resulted 08/26/16 11:50 Nasal Nares Influenza Types A,B Antigen (CORRINE) - Final Complete Laboratory Tests Test 08/26/16 11:50 08/26/16 14:09 08/26/16 14:13 08/26/16 15:05 Urine Color Yellow Urine Appearance Clear Urine pH 5 (4.5-8.0) Urine Specific [place] 1.020 (1.005-1.035) Urine Protein 2+ (NEGATIVE) H Urine Glucose (UA) Negative (NEGATIVE) Urine Ketones Negative (NEGATIVE) Urine Occult Blood 1+ (NEGATIVE) H Urine Nitrite Negative (NEGATIVE) Urine Bilirubin Negative (NEGATIVE) Urine Urobilinogen Normal MG/DL (0.0-1.0) Urine Leukocyte Esterase Negative (NEGATIVE) Urine RBC 0-2 /HPF (0 - 2) Urine WBC 0-2 /HPF (0 - 2) Urine Squamous Epithelial Cells Few /LPF (NONE/OCC) Urine Bacteria Few /HPF (NONE) CSF Glucose 88 mg/dL (50-80) H CSF Total Protein 33 mg/dL (15-45) CSF Appearance Clear CSF Color Colorless CSF WBC 2 /CU MM (0-5) CSF RBC 43 /CU MM CSF Neutrophils % % CSF Lymphocytes % % CSF Monocytes % % CSF Crenated Cells 0 % CSF Comment Pathologist comment CSF VDRL Pending Lactic Acid Level 1.30 mmol/L (0.66-2.22) Ammonia 28 umol/L (11-51) Test 08/27/16 06:50 White Blood Count 12.2 K/UL (4.8-10.8) H Red Blood Count 4.01 M/UL (4.20-5.40) L Hemoglobin 13.2 G/DL (12.0-16.0) Hematocrit 38.2 % (37.0-47.0) Mean Corpuscular Volume 95 FL (80-99) Mean Corpuscular Hemoglobin 32.8 PG (27.0-31.0) H Mean Corpuscular Hemoglobin Concent 34.5 G/DL (32.0-36.0) Red Cell Distribution Width 11.3 % (11.6-14.8) L Platelet Count 248 K/UL (150-450) Mean Platelet Volume 7.4 FL (6.5-10.1) Neutrophils (%) (Auto) 66.7 % (45.0-75.0) Lymphocytes (%) (Auto) 21.4 % (20.0-45.0) Monocytes (%) (Auto) 11.5 % (1.0-10.0) H Eosinophils (%) (Auto) 0.0 % (0.0-3.0) Basophils (%) (Auto) 0.4 % (0.0-2.0) Sodium Level 154 mEQ/L (135-145) H Potassium Level 3.1 mEQ/L (3.4-4.9) L Chloride Level 114 mEQ/L (98-107) H Carbon Dioxide Level 25 mEQ/L (20-30) Anion Gap 15 (5-15) Blood Urea Nitrogen 26 mg/dL (7-23) H Creatinine 0.8 mg/dL (0.5-0.9) Estimat Glomerular Filtration Rate > 60 mL/min (>60) Glucose Level 150 mg/dL (74-106) H Calcium Level 8.9 mg/dL (8.6-10.2) Phosphorus Level 2.6 mg/dL (2.5-4.8) Albumin 3.7 g/dL (3.5-5.2) Current Medications Medications (Trade) Dose Ordered Sig/Mariluz Route PRN Reason Start Time Stop Time Status Last Admin Dose Admin Acetaminophen (Tylenol) 650 mg Q4H PRN RECTAL Prn Headache/Temp > 101 08/27/16 00:15 09/26/16 00:14 08/27/16 09:40 Al Hydroxide/Mg Hydroxide (Mylanta II) 30 ml Q6H PRN ORAL dyspepsia 08/26/16 15:30 09/25/16 15:29 Albuterol/ Ipratropium 3 ml 3 ml EVERY 4 HOURS PRN HHN Shortness of Breath 08/26/16 15:30 08/31/16 15:29 Amlodipine Besylate (Norvasc) 10 mg DAILY ORAL 08/27/16 09:00 09/26/16 08:59 08/27/16 09:33 Aripiprazole (Abilify) 15 mg DAILY ORAL 08/27/16 09:00 09/26/16 08:59 08/27/16 09:30 Cefepime HCl/ Dextrose (Maxipime/D5W) 55 ml @ 110 mls/hr EVERY 12 HOURS IV 08/26/16 21:00 09/02/16 20:59 08/27/16 09:40 Heparin Sodium (Porcine) (Heparin 5000 units/ml) 5,000 units EVERY 12 HOURS SUBQ 08/26/16 21:00 09/25/16 20:59 08/27/16 09:32 Memantine (Namenda) 5 mg Q12HR ORAL 08/26/16 21:00 09/25/16 20:59 08/27/16 09:30 Nitroglycerin (Ntg) 0.4 mg Q5M PRN SL Prn Chest Pain 08/26/16 15:30 09/25/16 15:29 Ondansetron HCl (Zofran) 4 mg Q6H PRN IVP Nausea & Vomiting 08/26/16 15:30 09/25/16 15:29 Polyethylene Glycol (Miralax) 17 gm DAILYPRN PRN ORAL Constipation 08/26/16 15:30 09/25/16 15:29 Promethazine HCl/ Codeine (Phenergan with Codeine) 5 ml Q4H PRN ORAL For Cough 08/26/16 15:30 09/25/16 15:29 Temazepam (Restoril) 15 mg HSPRN PRN ORAL Insomnia 08/26/16 15:30 09/02/16 15:29 Vancomycin HCl 1 ea 1 ea DAILY PRN MISC Per rx protocol 08/26/16 15:30 09/25/16 15:29 Vancomycin HCl/ Dextrose (Vancomycin/D5W) 275 ml @ 183.333 mls/hr Q24H IVPB 08/27/16 06:00 09/01/16 05:59 08/27/16 05:00 SAMREEN ORO M.D. Aug 27, 2016 11:34
[2016-08-27 12:09] VITALS: BP 131/56
--- NOTE | 2016-08-27 12:53 | Diagnostic Imaging Report ---
Indication: Right upper quadrant pain, abnormal renal function tests, fever Technique: Hernadez-scale and duplex images of the upper abdomen were obtained Comparison: None Findings: Gallbladder is distended, contains gallstones. No gallbladder wall thickening nor pericholecystic fluid. Sonographic Sage's sign is negative. Common bile duct measures 9 mm in diameter. There is mild intrahepatic biliary ductal dilatation.. Liver demonstrates normal echogenicity, no focal abnormality. Portal vein and hepatic veins are patent. Pancreas is unremarkable. Spleen is unremarkable. Left kidney measures 9.8 cm in length. Right kidney measures 10.5 cm length. Both kidneys demonstrate normal echogenicity. There is trace hydronephrosis on the right No focal abnormality . Non-aneurysmal abdominal aorta . The bladder is empty, contains a Darling catheter Impression: Cholelithiasis Mildly dilated common bile duct and central intrahepatic ducts. While possibly on the basis of senescent change downstream obstruction not completely excludable. Correlate with liver function test, consider MRCP for better characterization if clinically indicated Mild right hydronephrosis. Etiology or level of obstruction not demonstrated. Collapsed urinary bladder with Darling catheter in place
--- NOTE | 2016-08-27 13:17 | Pulmonology Progress Note ---
Assessment/Plan Problems: (1) Severe sepsis (2) Altered level of consciousness (3) COPD (chronic obstructive pulmonary disease) (4) Dementia Assessment/Plan continue abx check electrolytes check cultures. family meeting for end of life care Subjective Interval Events: looks comfortable Allergies: Coded Allergies: NIACIN (Verified Allergy, Unknown, 08/26/16) Objective Last 24 Hour Vital Signs Date Time Temp Pulse Resp B/P Pulse Ox O2 Delivery O2 Flow Rate FiO2 08/27/16 12:09 102.0 101 18 131/56 98 Room Air 08/27/16 10:30 101.1 08/27/16 10:10 101.1 08/27/16 09:33 104 135/95 08/27/16 08:00 88 08/27/16 08:00 101.8 96 18 135/95 98 Room Air 08/27/16 07:16 74 20 Room Air 08/27/16 04:09 100.9 116 23 158/88 Room Air 08/27/16 04:00 114 08/27/16 00:00 96.4 107 18 153/74 96 Room Air 08/27/16 00:00 106 08/26/16 20:00 94 08/26/16 20:00 98.8 95 18 151/88 96 Room Air 08/26/16 19:36 90 22 Room Air 21 08/26/16 17:32 100.0 86 16 131/89 99 Room Air 08/26/16 16:00 100.0 86 16 131/89 99 Room Air 08/26/16 14:30 100.1 73 18 129/52 99 Room Air 08/26/16 14:30 100.1 Intake and Output 08/26/16 08/27/16 19:00 07:00 Intake Total 1485 ml Output Total 1400 ml Balance 1485 ml -1400 ml Intake Oral 0 ml IV Total 1485 ml Output Urine Total 1400 ml General Appearance: WD/WN HEENT: normocephalic Respiratory/Chest: chest wall non-tender, lungs clear Breasts: no masses Cardiovascular: normal peripheral pulses Abdomen: normal bowel sounds Genitourinary: normal external genitalia Extremities: no cyanosis Skin: no rash Microbiology Date/Time Source Procedure Growth Status 08/26/16 14:13 Cerebral Spinal Fluid Gram Stain - Final Resulted 08/26/16 14:13 Cerebral Spinal Fluid CSF Culture - Preliminary NO GROWTH AFTER 24 HOURS Resulted 08/26/16 11:50 Nasal Nares Influenza Types A,B Antigen (CORRINE) - Final Complete Laboratory Tests 08/26/16 14:09: CSF Glucose 88H, CSF Total Protein 33 08/26/16 14:13: CSF Appearance Clear, CSF Color Colorless, CSF WBC 2, CSF RBC 43, CSF Neutrophils % , CSF Lymphocytes % , CSF Monocytes % , CSF Crenated Cells 0, CSF Comment Pathologist comment, CSF VDRL [Pending] 08/26/16 15:05: Lactic Acid Level 1.30, Ammonia 28 08/27/16 06:50: White Blood Count 12.2H, Red Blood Count 4.01L, Hemoglobin 13.2, Hematocrit 38.2 , Mean Corpuscular Volume 95, Mean Corpuscular Hemoglobin 32.8H, Mean Corpuscular Hemoglobin Concent 34.5, Red Cell Distribution Width 11.3L, Platelet Count 248, Mean Platelet Volume 7.4, Neutrophils (%) (Auto) 66.7, Lymphocytes (%) (Auto) 21.4, Monocytes (%) (Auto) 11.5H, Eosinophils (%) (Auto) 0.0, Basophils (%) (Auto) 0.4, Sodium Level 154H, Potassium Level 3.1L, Chloride Level 114H, Carbon Dioxide Level 25, Anion Gap 15, Blood Urea Nitrogen 26H, Creatinine 0.8, Estimat Glomerular Filtration Rate > 60, Glucose Level 150H , Calcium Level 8.9, Phosphorus Level 2.6, Albumin 3.7 Current Medications Medications (Trade) Dose Ordered Sig/Mariluz Route PRN Reason Start Time Stop Time Status Last Admin Dose Admin Acetaminophen (Tylenol) 650 mg Q4H PRN RECTAL Prn Headache/Temp > 101 08/27/16 00:15 09/26/16 00:14 08/27/16 09:40 Al Hydroxide/Mg Hydroxide (Mylanta II) 30 ml Q6H PRN ORAL dyspepsia 08/26/16 15:30 09/25/16 15:29 Albuterol/ Ipratropium 3 ml 3 ml EVERY 4 HOURS PRN HHN Shortness of Breath 08/26/16 15:30 08/31/16 15:29 Amlodipine Besylate (Norvasc) 10 mg DAILY ORAL 08/27/16 09:00 09/26/16 08:59 08/27/16 09:33 Aripiprazole (Abilify) 15 mg DAILY ORAL 08/27/16 09:00 09/26/16 08:59 08/27/16 09:30 Cefepime HCl/ Dextrose (Maxipime/D5W) 55 ml @ 110 mls/hr EVERY 12 HOURS IV 08/26/16 21:00 09/02/16 20:59 08/27/16 09:40 Heparin Sodium (Porcine) (Heparin 5000 units/ml) 5,000 units EVERY 12 HOURS SUBQ 08/26/16 21:00 09/25/16 20:59 08/27/16 09:32 Memantine (Namenda) 5 mg Q12HR ORAL 08/26/16 21:00 09/25/16 20:59 08/27/16 09:30 Nitroglycerin (Ntg) 0.4 mg Q5M PRN SL Prn Chest Pain 08/26/16 15:30 09/25/16 15:29 Ondansetron HCl (Zofran) 4 mg Q6H PRN IVP Nausea & Vomiting 08/26/16 15:30 09/25/16 15:29 Polyethylene Glycol (Miralax) 17 gm DAILYPRN PRN ORAL Constipation 08/26/16 15:30 09/25/16 15:29 Promethazine HCl/ Codeine (Phenergan with Codeine) 5 ml Q4H PRN ORAL For Cough 08/26/16 15:30 09/25/16 15:29 Temazepam (Restoril) 15 mg HSPRN PRN ORAL Insomnia 08/26/16 15:30 09/02/16 15:29 Vancomycin HCl 1 ea 1 ea DAILY PRN MISC Per rx protocol 08/26/16 15:30 09/25/16 15:29 Vancomycin HCl/ Dextrose (Vancomycin/D5W) 275 ml @ 183.333 mls/hr Q24H IVPB 08/27/16 06:00 09/01/16 05:59 08/27/16 05:00 CHERYL CHRISTIAN Aug 27, 2016 13:17
--- NOTE | 2016-08-27 14:09 | Neurology Progress Note ---
Objective Physical Exam Last Vital Signs Date Time Temp Pulse Resp B/P Pulse Ox O2 Delivery O2 Flow Rate FiO2 08/27/16 12:09 102.0 101 18 131/56 98 Room Air 08/27/16 07:16 21 Laboratory Tests Test 08/26/16 14:09 08/26/16 14:13 08/26/16 15:05 08/27/16 06:50 CSF Glucose 88 mg/dL (50-80) H CSF Total Protein 33 mg/dL (15-45) CSF Appearance Clear CSF Color Colorless CSF WBC 2 /CU MM (0-5) CSF RBC 43 /CU MM CSF Neutrophils % % CSF Lymphocytes % % CSF Monocytes % % CSF Crenated Cells 0 % CSF Comment Pathologist comment CSF VDRL Pending Lactic Acid Level 1.30 mmol/L (0.66-2.22) Ammonia 28 umol/L (11-51) White Blood Count 12.2 K/UL (4.8-10.8) H Red Blood Count 4.01 M/UL (4.20-5.40) L Hemoglobin 13.2 G/DL (12.0-16.0) Hematocrit 38.2 % (37.0-47.0) Mean Corpuscular Volume 95 FL (80-99) Mean Corpuscular Hemoglobin 32.8 PG (27.0-31.0) H Mean Corpuscular Hemoglobin Concent 34.5 G/DL (32.0-36.0) Red Cell Distribution Width 11.3 % (11.6-14.8) L Platelet Count 248 K/UL (150-450) Mean Platelet Volume 7.4 FL (6.5-10.1) Neutrophils (%) (Auto) 66.7 % (45.0-75.0) Lymphocytes (%) (Auto) 21.4 % (20.0-45.0) Monocytes (%) (Auto) 11.5 % (1.0-10.0) H Eosinophils (%) (Auto) 0.0 % (0.0-3.0) Basophils (%) (Auto) 0.4 % (0.0-2.0) Sodium Level 154 mEQ/L (135-145) H Potassium Level 3.1 mEQ/L (3.4-4.9) L Chloride Level 114 mEQ/L (98-107) H Carbon Dioxide Level 25 mEQ/L (20-30) Anion Gap 15 (5-15) Blood Urea Nitrogen 26 mg/dL (7-23) H Creatinine 0.8 mg/dL (0.5-0.9) Estimat Glomerular Filtration Rate > 60 mL/min (>60) Glucose Level 150 mg/dL (74-106) H Calcium Level 8.9 mg/dL (8.6-10.2) Phosphorus Level 2.6 mg/dL (2.5-4.8) Albumin 3.7 g/dL (3.5-5.2) Impression/Recommendations Problems: (1) Dementia arising in the senium and presenium (2) Rhabdomyolysis (3) COPD (chronic obstructive pulmonary disease) (4) Severe sepsis Status: not improved, unchanged Recommendations #[id number] JENNA BRIGGS Aug 27, 2016 14:09
[2016-08-27 16:00] VITALS: BP 128/60
[2016-08-27 20:22] VITALS: BP 133/68
[2016-08-28] VITALS (8 sets, daily range): BP systolic 105–165; BP diastolic 54–79
--- NOTE | 2016-08-28 01:30 | Consultation ---
DATE OF CONSULTATION: 08/27/2016 NEUROLOGICAL CONSULTATION CONSULTING PHYSICIAN: ATTENDING PHYSICIAN: REFERRING PHYSICIAN: Evangelist Cast M.D. HISTORY OF PRESENT ILLNESS: This is a 71-year-old female presented to the nursing facility and brought to this hospital for progressive changes in her mental status. The patient has pre-existent advanced form of dementia, but according to the family she is more responsive and more coherent. This changed last day, she becoming less verbal responding yes and no. The patient was brought to emergency room. She had a low-grade fever of 100, heart rate of 86, blood pressure 131/89. Initial assessment included CAT scan of the brain without contrast. This revealed multiple old strokes, marked age-related enlargement of ventricles, periventricular deep white matter changes, old lacunar infarct right parietal lobe and left basal ganglia. No evidence of acute abnormalities, no midline shift, and no hemorrhage noted. Her chest x-ray revealed no evidence of acute abnormalities. Abdominal ultrasound showed cholelithiasis. Blood work included a CBC study with WBC 16.5. Chemistry panel revealed a BUN of 39, creatinine 1.1, blood sugar 161, sodium 147, elevated CPK at 4434, elevated CK-MB of 8.0 and AST 140, ALT 74. Urinalysis unremarkable . The patient had a spinal tap. The spinal fluid essentially is normal except for elevated blood sugar of 88. The patient presenting with signs of sepsis, fever and leukocytosis, required antibiotic coverage. Elevated liver enzymes noted and abdominal ultrasound was requested with cholelithiasis. The patient remained with significant changes in mental status. Neurological consult was requested. During hospitalization the patient continued with fever today of 102, heart rate is 101, blood pressure 131/56. PAST MEDICAL HISTORY: The patient has a history of advanced dementia, history of COPD, and hypertension. MEDICATIONS: Treatment prior to admission included Abilify 15 mg, amlodipine, atorvastatin, citalopram, Advair, and Namenda 5 mg twice a day. SOCIAL HISTORY: Resident of a nursing facility. FAMILY HISTORY: Noncontributory. REVIEW OF SYSTEM: Unable to obtain due the patient's status. PHYSICAL EXAMINATION: GENERAL: Well-developed, but ill-appearing cachectic elderly lady, lying in bed with eyes open with continuous shivering of head, back, and upper extremities. The patient in a position. VITAL SIGNS: Current vital signs include temperature 102, heart rate of 101, respiratory rate of 18, blood pressure 131/56. Pulse oximetry 98% on room air. HEENT: Head is normocephalic. There is no evidence of injuries. Eyes, ears, and throat are clear. NECK: Neck is rigid. MUSCULOSKELETAL: Flexed both lower extremities. MENTAL STATUS: The patient is alert, has a good eye contact. Able to follow simple commands, but able to give only her name, not age, and not place. She has a very limited verbal output. CRANIAL NERVES II: Pupils both responding to light and accommodation. Extraocular movement, full range with some limitation on left gaze. CRANIAL NERVES II: Normal corneal responses. CRANIAL NERVE VII: Left nasolabial fold. CRANIAL NERVE VIII: Grossly normal hearing. CRANIAL NERVES IX THROUGH XII: Tongue is in midline. MOTOR: Revealed a diffuse rigidity with a continuous shivering of both upper extremities, head, and neck, flexion contracture of lower extremities, deep reflexes depressed bilaterally. Plantar response is mute. SENSORY: Withdrawing to pin stimulation both upper and lower extremities. Gait, unable to test. IMPRESSION: 1. Senile dementia, advanced. 2. Sepsis. 3. Rhabdomyolysis. 4. Abnormal liver enzymes. 5. History of hypertension. 6. History of chronic obstructive pulmonary disease. 7. History of hyperlipidemia. RECOMMENDATION: 1. Hold all unessential treatment including Namenda, Abilify and statin. 2. The patient to continue with appropriate IV fluids, antibiotics to cover underlying infection. 3. The patient has no evidence of meningitis and advanced changes in mental status contributed by underlying dementia with significant metabolic derangement. Thank you for allowing me to see this interesting patient in neurological consultation. Michael Newton M.D. DR: MARY CARMEN JOB#: [id number] CC:
[2016-08-28] MEDS: Acetaminophen 650 MG SUPP RECTAL PRN ×3 (02:08→15:44)
[2016-08-28] MEDS: Vancomycin 1250mg/D5W 275ml IVPB SCH ×2 (04:59)
[2016-08-28] MEDS: Cefepime HCl 1 GM in D5W 55 ML IV SCH ×2 (08:37→22:05)
[2016-08-28] MEDS: Heparin 5000 units/ml inj SUBQ SCH ×2 (08:40→22:06)
[2016-08-28] MEDS ORDERED: NS 275ml ONE (09:48)
[2016-08-28] MEDS ORDERED: Tubing IV Secondary IV ONE (09:48)
--- NOTE | 2016-08-28 11:52 | Wound Care Consultation ---
Wound Assessment Wound Assessment : Wound Present on Admission: Yes New Wound: No Status Change of Wound: No Wound Location Body Site: sacral Wound Type: pressure ulcer Rose Test: Does not Rose Pressure Ulcer Stage: deep tissue injury Wound Thickness: Full Thickness Wound Length: 1.0 Wound Width: 1.0 Wound Depth: utd Percent of Wound Purple/Maroon: 100 Wound Drainage Amount: None Wound Drainage Odor: None/Absent Tissue Surrounding Wound: Erythemic Wound General Appearance: Reddened - purple Wound Comment #1 Sacral DTI purple in color pressure ulcer Recommendation -Keep clean and dry -Turn and reposition -Local wound care per protocol for DTI -Low air loss mattress -Offload both heels -Heel protector on both heels -Optimize nutrition -Assess and f/u accordingly for any changes GRAHAM ALVARADO RN Aug 28, 2016 11:52
--- NOTE | 2016-08-28 14:15 | Pulmonology Progress Note ---
Assessment/Plan Problems: (1) Severe sepsis (2) Altered level of consciousness (3) COPD (chronic obstructive pulmonary disease) (4) Dementia Assessment/Plan continue abx check electrolytes check cultures. talked to pts daughter, She agreed with Gtube placement Dr. Myers called still febrile, cultures negative, CXR negative, urine negative dvt prophylaxis. Subjective Interval Events: open eyes Allergies: Coded Allergies: NIACIN (Verified Allergy, Unknown, 08/26/16) Objective Last 24 Hour Vital Signs Date Time Temp Pulse Resp B/P Pulse Ox O2 Delivery O2 Flow Rate FiO2 08/28/16 13:30 98.4 08/28/16 12:05 110 08/28/16 11:34 99.9 110 18 105/79 95 Room Air 08/28/16 10:27 99.9 08/28/16 09:36 101.1 08/28/16 09:31 101.1 08/28/16 08:57 102.9 120 19 137/70 97 Room Air 08/28/16 08:35 103 165/65 08/28/16 08:10 114 08/28/16 08:01 100.2 103 19 165/65 97 Room Air 103 08/28/16 06:52 108 20 Room Air 21 08/28/16 04:00 98.7 117 21 146/54 77 Room Air 08/28/16 04:00 111 08/28/16 00:19 98.1 101 21 140/54 95 Room Air 08/28/16 00:00 106 08/27/16 20:22 99.1 111 20 133/68 96 Room Air 08/27/16 20:00 111 08/27/16 19:27 70 20 Room Air 21 08/27/16 16:00 98.8 98 19 128/60 97 Nasal Cannula 2.0 08/27/16 15:29 94 Intake and Output 08/27/16 08/28/16 19:00 07:00 Intake Total 0 ml Output Total 800 ml 1000 ml Balance -800 ml -1000 ml Intake Oral 0 ml Output Urine Total 800 ml 1000 ml General Appearance: cachetic HEENT: normocephalic, atraumatic, anicteric Respiratory/Chest: chest wall non-tender, lungs clear Breasts: no masses Cardiovascular: normal peripheral pulses Abdomen: normal bowel sounds, soft, non tender Genitourinary: normal external genitalia Extremities: no clubbing Microbiology Date/Time Source Procedure Growth Status 08/26/16 11:30 Blood Blood Culture - Preliminary NO GROWTH AFTER 24 HOURS Resulted 08/26/16 11:30 Blood Blood Culture - Preliminary NO GROWTH AFTER 24 HOURS Resulted 08/26/16 14:13 Cerebral Spinal Fluid Gram Stain - Final Resulted 08/26/16 14:13 Cerebral Spinal Fluid CSF Culture - Preliminary Resulted 08/26/16 11:50 Nasal Nares MRSA Culture - Final NO METHICILLIN RESISTANT STAPH AUREUS... Complete 08/26/16 11:50 Nasal Nares Influenza Types A,B Antigen (CORRINE) - Final Complete 08/26/16 23:50 Urine,Clean Catch Urine Culture - Preliminary NO GROWTH AFTER 24 HOURS Resulted 08/26/16 11:50 Rectum VRE Culture - Final NO VANCOMYCIN RESISTANT ENTEROCOCCUS ... Complete Current Medications Medications (Trade) Dose Ordered Sig/Mariluz Route PRN Reason Start Time Stop Time Status Last Admin Dose Admin Acetaminophen (Tylenol) 650 mg Q4H PRN RECTAL Prn Headache/Temp > 101 08/27/16 00:15 09/26/16 00:14 08/28/16 09:01 Al Hydroxide/Mg Hydroxide (Mylanta II) 30 ml Q6H PRN ORAL dyspepsia 08/26/16 15:30 09/25/16 15:29 Albuterol/ Ipratropium 3 ml 3 ml EVERY 4 HOURS PRN HHN Shortness of Breath 08/26/16 15:30 08/31/16 15:29 Amlodipine Besylate (Norvasc) 10 mg DAILY ORAL 08/27/16 09:00 09/26/16 08:59 08/28/16 08:35 Cefepime HCl/ Dextrose (Maxipime/D5W) 55 ml @ 110 mls/hr EVERY 12 HOURS IV 08/26/16 21:00 09/02/16 20:59 08/28/16 08:37 Heparin Sodium (Porcine) (Heparin 5000 units/ml) 5,000 units EVERY 12 HOURS SUBQ 08/26/16 21:00 09/25/16 20:59 08/28/16 08:40 Nitroglycerin (Ntg) 0.4 mg Q5M PRN SL Prn Chest Pain 08/26/16 15:30 09/25/16 15:29 Ondansetron HCl (Zofran) 4 mg Q6H PRN IVP Nausea & Vomiting 08/26/16 15:30 09/25/16 15:29 Polyethylene Glycol (Miralax) 17 gm DAILYPRN PRN ORAL Constipation 08/26/16 15:30 09/25/16 15:29 Promethazine HCl/ Codeine (Phenergan with Codeine) 5 ml Q4H PRN ORAL For Cough 08/26/16 15:30 09/25/16 15:29 Temazepam (Restoril) 15 mg HSPRN PRN ORAL Insomnia 08/26/16 15:30 09/02/16 15:29 Vancomycin HCl 1 ea 1 ea DAILY PRN MISC Per rx protocol 08/26/16 15:30 09/25/16 15:29 Vancomycin HCl/ Dextrose (Vancomycin/D5W) 275 ml @ 183.333 mls/hr Q24H IVPB 08/27/16 06:00 09/01/16 05:59 08/28/16 04:59 CHERYL CHRISTIAN Aug 28, 2016 14:15
--- NOTE | 2016-08-28 21:11 | Infectious Diseases Prog Note ---
Assessment/Plan Assessment/Plan ASSESSMENT: 71 y/o female with: // Elevated LFTs / transaminitis r/o hepatobiliary disease - GI eval pending - US: Mildly dilated common bile duct and central intrahepatic ducts. While possibly on the basis of senescent change downstream obstruction not completely excludable. // Fever - improved. UA(-), CXR NAF, Cultures NGTD // Leukocytosis - improved // Lactic acidosis - resolved // Negative influenza // Acute on chronic encephalopathy - SP LP, no evidence of meningitis/encephalitis. VDRL NR - CT Head: Chronic and age-related changes, multiple old infarcts. Negative for acute intracranial bleed or mass effect - baseline advanced dementia // Dysphagia - plan possible PEG // Mild right hydronephrosis // NH resident // No ABX allergies // DNR PLAN: - continue empiric IV vancomycin, cefepime d# 2 - - f/u cultures - monitor CBC, temperatures - monitor BMP - possible PEG - f/u GI eval Subjective Allergies: Coded Allergies: NIACIN (Verified Allergy, Unknown, 08/26/16) Subjective fevers improved cultures NGTD Objective Vital Signs Last 24 Hour Vital Signs Date Time Temp Pulse Resp B/P Pulse Ox O2 Delivery O2 Flow Rate FiO2 08/28/16 20:00 98.1 53 20 107/73 100 Room Air 08/28/16 19:35 92 20 Room Air 21 08/28/16 16:14 97.5 08/28/16 16:14 97.9 08/28/16 15:49 118 134/68 08/28/16 15:43 120 08/28/16 15:29 102.4 116 19 163/67 94 Room Air 08/28/16 13:30 98.4 08/28/16 12:05 110 08/28/16 11:34 99.9 110 18 105/79 95 Room Air 08/28/16 10:27 99.9 08/28/16 09:36 101.1 08/28/16 08:57 102.9 120 19 137/70 97 Room Air 08/28/16 08:35 103 165/65 08/28/16 08:10 114 08/28/16 08:01 100.2 103 19 165/65 97 Room Air 103 08/28/16 06:52 108 20 Room Air 21 08/28/16 04:00 98.7 117 21 146/54 77 Room Air 08/28/16 04:00 111 08/28/16 00:19 98.1 101 21 140/54 95 Room Air 08/28/16 00:00 106 Height (Feet): 5 Height (Inches): 5.00 Weight (Pounds): 150 General Appearance: no acute distress Respiratory/Chest: no respiratory distress Cardiovascular: normal rate, regular rhythm Abdomen: normal bowel sounds, soft, non tender, non distended Microbiology Date/Time Source Procedure Growth Status 08/26/16 11:30 Blood Blood Culture - Preliminary NO GROWTH AFTER 24 HOURS Resulted 08/26/16 11:30 Blood Blood Culture - Preliminary NO GROWTH AFTER 24 HOURS Resulted 08/26/16 14:13 Cerebral Spinal Fluid Gram Stain - Final Resulted 08/26/16 14:13 Cerebral Spinal Fluid CSF Culture - Preliminary Resulted 08/26/16 11:50 Nasal Nares MRSA Culture - Final NO METHICILLIN RESISTANT STAPH AUREUS... Complete 08/26/16 11:50 Nasal Nares Influenza Types A,B Antigen (CORRINE) - Final Complete 08/26/16 23:50 Urine,Clean Catch Urine Culture - Preliminary NO GROWTH AFTER 24 HOURS Resulted 08/26/16 11:50 Rectum VRE Culture - Final NO VANCOMYCIN RESISTANT ENTEROCOCCUS ... Complete Current Medications Medications (Trade) Dose Ordered Sig/Mariluz Route PRN Reason Start Time Stop Time Status Last Admin Dose Admin Acetaminophen (Tylenol) 650 mg Q4H PRN RECTAL Prn Headache/Temp > 101 08/27/16 00:15 09/26/16 00:14 08/28/16 15:44 Al Hydroxide/Mg Hydroxide (Mylanta II) 30 ml Q6H PRN ORAL dyspepsia 08/26/16 15:30 09/25/16 15:29 Albuterol/ Ipratropium 3 ml 3 ml EVERY 4 HOURS PRN HHN Shortness of Breath 08/26/16 15:30 08/31/16 15:29 Amlodipine Besylate (Norvasc) 10 mg DAILY ORAL 08/27/16 09:00 09/26/16 08:59 08/28/16 08:35 Cefepime HCl/ Dextrose (Maxipime/D5W) 55 ml @ 110 mls/hr EVERY 12 HOURS IV 08/26/16 21:00 09/02/16 20:59 08/28/16 08:37 Heparin Sodium (Porcine) (Heparin 5000 units/ml) 5,000 units EVERY 12 HOURS SUBQ 08/26/16 21:00 09/25/16 20:59 08/28/16 08:40 Nitroglycerin (Ntg) 0.4 mg Q5M PRN SL Prn Chest Pain 08/26/16 15:30 09/25/16 15:29 Olanzapine (ZyPREXA) 2.5 mg BEDTIME ORAL 08/28/16 21:00 09/27/16 20:59 Ondansetron HCl (Zofran) 4 mg Q6H PRN IVP Nausea & Vomiting 08/26/16 15:30 09/25/16 15:29 Polyethylene Glycol (Miralax) 17 gm DAILYPRN PRN ORAL Constipation 08/26/16 15:30 09/25/16 15:29 Promethazine HCl/ Codeine (Phenergan with Codeine) 5 ml Q4H PRN ORAL For Cough 08/26/16 15:30 09/25/16 15:29 Temazepam (Restoril) 15 mg HSPRN PRN ORAL Insomnia 08/26/16 15:30 09/02/16 15:29 Vancomycin HCl 1 ea 1 ea DAILY PRN MISC Per rx protocol 08/26/16 15:30 09/25/16 15:29 Vancomycin HCl/ Dextrose (Vancomycin/D5W) 275 ml @ 183.333 mls/hr Q24H IVPB 08/27/16 06:00 09/01/16 05:59 08/28/16 04:59 ROBSON LIM Aug 28, 2016 21:11
[2016-08-28] MEDS: OLANZapine 2.5mg tab ORAL SCH (22:04)
[2016-08-29] VITALS: BP 149/63
--- NOTE | 2016-08-29 01:15 | Consultation ---
DATE OF CONSULTATION: HISTORY OF PRESENT ILLNESS: This is a 71-year-old female with a history of dementia was then admitted with acute altered mental status. The patient during the evaluation is confused and presents with impairment of concentration, memory, and attention. She is able to answer simple questions and she is disoriented. The patient is a poor historian. She was admitted for evaluation for sepsis and she presented with leukocytosis and fever. PAST PSYCHIATRIC HISTORY: She has been diagnosed with dementia. MEDICATIONS: She has been treated with benzodiazepines and Abilify. PAST MEDICAL HISTORY: Hypertension, COPD, hyperlipidemia, and dementia. ALLERGIES: Niacin. SUBSTANCE ABUSE HISTORY: No known history of illicit drug use or alcohol. MENTAL STATUS EXAMINATION: The patient is alert and oriented times self, presents with waxing, waning, consciousness. Mood is neutral. Affect is constricted. Congruent mood. Thought process is concrete. Thought content, no suicidal or homicidal ideation. Cognition is impaired. ASSESSMENT: Harcourt I Delirium medical condition with dementia. Harcourt II Deferred. Harcourt III Sepsis. Harcourt IV Low. Harcourt V 25. PLAN: We will start patient on Zyprexa 0.5 milligram at bedtime, which would help the patient to recover from delirium faster as it will balance the acetylcholine-dopamine imbalance. We will continue to follow and the patient will improve when the underlying cause of delirium is treated. Maninder Peter M.D. DR: ANUSHA JOB#: [id number] CC:
[2016-08-29 04:00] VITALS: BP 127/57
[2016-08-29 05:58] LABS: MEAN CORPUSCULAR HEMOGLOBIN 32.7 PG (27.0-31.0); MEAN CORPUSCULAR HGB CONC 33.4 G/DL (32.0-36.0); MEAN CORPUSCULAR VOLUME 98 FL (80-99); MEAN PLATELET VOLUME 7.2 FL (6.5-10.1); PLATELET COUNT 175 K/UL (150-450); RED BLOOD COUNT 3.88 M/UL (4.20-5.40); RED CELL DISTRIBUTION WIDTH 11.6 % (11.6-14.8); WHITE BLOOD COUNT 18.2 K/UL (4.8-10.8)
[2016-08-29 06:08] LABS: ALANINE AMINOTRANSFERASE 166 U/L (3-33); ALBUMIN/GLOBULIN RATIO 1.2 (1.0-2.7); ANION GAP 14 (5-15); ASPARTATE AMINO TRANSFERASE 111 U/L (5-40); CARBON DIOXIDE 27 mEQ/L (20-30); CHLORIDE 119 mEQ/L (98-107); CREATININE 0.7 mg/dL (0.5-0.9); GLOMERULAR FILTRATION RATE > 60 mL/min (>60); HEMOLYSIS 9; POTASSIUM 3.3 mEQ/L (3.4-4.9); SODIUM 160 mEQ/L (135-145)
[2016-08-29 06:22] LABS: INR 1.1 (0.9-1.1); PROTHROMBIN TIME 11.2 SEC (9.30-11.50)
[2016-08-29 06:41] LABS: MAGNESIUM 2.5 mg/dL (1.7-2.5); PHOSPHORUS 3.2 mg/dL (2.5-4.8)
[2016-08-29] MEDS ORDERED: Vancomycin 1250mg/D5W 275ml IVPB SCH ×2 (06:45)
[2016-08-29] MEDS: Vancomycin 1250mg/D5W 275ml IVPB SCH ×4 (06:53→18:12)
[2016-08-29 08:00] VITALS: BP 145/71
[2016-08-29] MEDS: Acetaminophen 650 MG SUPP RECTAL PRN ×2 (09:01→15:43)
[2016-08-29] MEDS: Cefepime HCl 1 GM in D5W 55 ML IV SCH (09:02)
[2016-08-29] MEDS: Heparin 5000 units/ml inj SUBQ SCH ×2 (09:05→21:04)
[2016-08-29 10:57] LABS: BAND NEUTROPHILS % (MANUAL) 0 % (0-8); BASOPHILS % (MANUAL) 0 % (0-2); EOSINOPHILS % (MANUAL) 0 % (0-3); LYMPHOCYTES % (MANUAL) 14 % (20-45); NEUTROPHILS % (MANUAL) 84 % (45-75); PLATELET ESTIMATE ADEQUATE; PLATELET MORPHOLOGY NORMAL; TOTAL CELLS COUNTED 100
[2016-08-29 12:00] VITALS: BP 130/50
[2016-08-29 16:00] VITALS: BP 110/69
--- NOTE | 2016-08-29 16:27 | Infectious Diseases Prog Note ---
Assessment/Plan Assessment/Plan ASSESSMENT: 71 y/o female with: // Elevated LFTs / transaminitis r/o hepatobiliary disease - GI eval pending - US: Mildly dilated common bile duct and central intrahepatic ducts. While possibly on the basis of senescent change downstream obstruction not completely excludable. // Fever - improved. UA(-), CXR NAF, Cultures NGTD // Leukocytosis - improved // Lactic acidosis - resolved // Negative influenza // Acute on chronic encephalopathy - SP LP, no evidence of meningitis/encephalitis. VDRL NR - CT Head: Chronic and age-related changes, multiple old infarcts. Negative for acute intracranial bleed or mass effect - baseline advanced dementia // Dysphagia - plan possible PEG // Mild right hydronephrosis // NH resident // No ABX allergies // DNR PLAN: - continue empiric IV vancomycin d# 3, broaden cefepime d# 3 to meropenem d# 1 given persistent fevers, leukocytosis - check HIDA - f/u cultures - monitor CBC, temperatures - monitor BMP - possible PEG - f/u GI eval d/w RN, family at bedside Subjective Allergies: Coded Allergies: NIACIN (Verified Allergy, Unknown, 08/26/16) Subjective still febrile. WBC up today cultures NGTD Objective Vital Signs Last 24 Hour Vital Signs Date Time Temp Pulse Resp B/P Pulse Ox O2 Delivery O2 Flow Rate FiO2 08/29/16 12:00 101 08/29/16 12:00 99.1 96 18 130/50 96 Room Air 08/29/16 11:01 99.1 08/29/16 09:31 100.0 08/29/16 09:01 111 145/71 08/29/16 08:00 110 08/29/16 08:00 101.7 111 20 145/71 95 Room Air 08/29/16 07:05 110 20 Room Air 21 08/29/16 04:00 87 08/29/16 04:00 97.5 77 18 127/57 100 Room Air 08/29/16 02:30 97.2 08/29/16 00:01 101.7 08/29/16 00:00 116 08/29/16 00:00 94.6 116 22 149/63 95 Room Air 08/28/16 20:00 98.1 53 20 107/73 100 Room Air 08/28/16 20:00 94 08/28/16 19:35 92 20 Room Air 21 08/28/16 16:14 97.9 Height (Feet): 5 Height (Inches): 5.00 Weight (Pounds): 150 General Appearance: no acute distress Respiratory/Chest: no respiratory distress Cardiovascular: normal rate, regular rhythm Abdomen: normal bowel sounds, soft, non tender, non distended Microbiology Date/Time Source Procedure Growth Status 08/26/16 23:50 Urine,Clean Catch Urine Culture - Final NO GROWTH AFTER 48 HOURS Complete Laboratory Tests Test 08/29/16 05:15 White Blood Count 18.2 K/UL (4.8-10.8) H Red Blood Count 3.88 M/UL (4.20-5.40) L Hemoglobin 12.7 G/DL (12.0-16.0) Hematocrit 37.9 % (37.0-47.0) Mean Corpuscular Volume 98 FL (80-99) Mean Corpuscular Hemoglobin 32.7 PG (27.0-31.0) H Mean Corpuscular Hemoglobin Concent 33.4 G/DL (32.0-36.0) Red Cell Distribution Width 11.6 % (11.6-14.8) Platelet Count 175 K/UL (150-450) Mean Platelet Volume 7.2 FL (6.5-10.1) Neutrophils (%) (Auto) % (45.0-75.0) Lymphocytes (%) (Auto) % (20.0-45.0) Monocytes (%) (Auto) % (1.0-10.0) Eosinophils (%) (Auto) % (0.0-3.0) Basophils (%) (Auto) % (0.0-2.0) Differential Total Cells Counted 100 Neutrophils % (Manual) 84 % (45-75) H Lymphocytes % (Manual) 14 % (20-45) L Monocytes % (Manual) 2 % (1-10) Eosinophils % (Manual) 0 % (0-3) Basophils % (Manual) 0 % (0-2) Band Neutrophils 0 % (0-8) Platelet Estimate Adequate Platelet Morphology Normal Red Blood Cell Morphology Normal Prothrombin Time 11.2 SEC (9.30-11.50) Prothromb Time International Ratio 1.1 (0.9-1.1) Activated Partial Thromboplast Time 42 SEC (23-33) H Sodium Level 160 mEQ/L (135-145) H Potassium Level 3.3 mEQ/L (3.4-4.9) L Chloride Level 119 mEQ/L (98-107) H Carbon Dioxide Level 27 mEQ/L (20-30) Anion Gap 14 (5-15) Blood Urea Nitrogen 23 mg/dL (7-23) Creatinine 0.7 mg/dL (0.5-0.9) Estimat Glomerular Filtration Rate > 60 mL/min (>60) Glucose Level 124 mg/dL (74-106) H Calcium Level 9.0 mg/dL (8.6-10.2) Phosphorus Level 3.2 mg/dL (2.5-4.8) Magnesium Level 2.5 mg/dL (1.7-2.5) Total Bilirubin 0.7 mg/dL (0.0-1.2) Aspartate Amino Transf (AST/SGOT) 111 U/L (5-40) H Alanine Aminotransferase (ALT/SGPT) 166 U/L (3-33) H Alkaline Phosphatase 37 U/L (35-104) Total Protein 6.0 g/dL (6.6-8.7) L Albumin 3.3 g/dL (3.5-5.2) L Globulin 2.7 g/dL Albumin/Globulin Ratio 1.2 (1.0-2.7) Vancomycin Level Trough 4.7 ug/mL (5.0-12.0) L Current Medications Medications (Trade) Dose Ordered Sig/Mariluz Route PRN Reason Start Time Stop Time Status Last Admin Dose Admin Acetaminophen (Tylenol) 650 mg Q4H PRN RECTAL Prn Headache/Temp > 101 08/27/16 00:15 09/26/16 00:14 08/29/16 15:43 Al Hydroxide/Mg Hydroxide (Mylanta II) 30 ml Q6H PRN ORAL dyspepsia 08/26/16 15:30 09/25/16 15:29 Albuterol/ Ipratropium 3 ml 3 ml EVERY 4 HOURS PRN HHN Shortness of Breath 08/26/16 15:30 08/31/16 15:29 Amlodipine Besylate (Norvasc) 10 mg DAILY ORAL 08/27/16 09:00 09/26/16 08:59 08/29/16 09:01 Cefepime HCl/ Dextrose (Maxipime/D5W) 55 ml @ 110 mls/hr EVERY 12 HOURS IV 08/26/16 21:00 09/02/16 20:59 08/29/16 09:02 Heparin Sodium (Porcine) (Heparin 5000 units/ml) 5,000 units EVERY 12 HOURS SUBQ 08/26/16 21:00 09/25/16 20:59 08/29/16 09:05 Nitroglycerin (Ntg) 0.4 mg Q5M PRN SL Prn Chest Pain 08/26/16 15:30 09/25/16 15:29 Olanzapine 2.5 mg 2.5 mg BEDTIME ORAL 08/28/16 21:00 09/27/16 20:59 08/28/16 22:04 Ondansetron HCl (Zofran) 4 mg Q6H PRN IVP Nausea & Vomiting 08/26/16 15:30 09/25/16 15:29 Polyethylene Glycol (Miralax) 17 gm DAILYPRN PRN ORAL Constipation 08/26/16 15:30 09/25/16 15:29 Potassium Chloride/Dextrose (KCl/D5W 1000ml) 1,020 ml @ 50 mls/hr [id number] IV 08/29/16 10:00 09/28/16 09:59 08/29/16 10:01 Promethazine HCl/ Codeine (Phenergan with Codeine) 5 ml Q4H PRN ORAL For Cough 08/26/16 15:30 09/25/16 15:29 Temazepam (Restoril) 15 mg HSPRN PRN ORAL Insomnia 08/26/16 15:30 09/02/16 15:29 Vancomycin HCl (Vanco rx to dose) 1 ea DAILY PRN MISC Per rx protocol 08/26/16 15:30 09/25/16 15:29 Vancomycin HCl 1.25 gm/Dextrose 275 ml @ 183.333 mls/hr Q12H IVPB 08/29/16 06:45 09/03/16 06:44 08/29/16 06:53 ROBSON LIM 10, 2017 16:27
--- NOTE | 2016-08-29 17:15 | Consultation ---
DATE OF CONSULTATION: 08/29/2016 CONSULTING PHYSICIAN: Isreal Nation M.D. REFERRING PHYSICIAN: Evangelist Cast M.D. CHIEF COMPLAINT: Failure to thrive and abnormal liver function test. HISTORY OF PRESENT ILLNESS: Most of the history is from chart. The patient has severe dementia, unable to get any history from her. The patient apparently is eating, but only minimum. She states she is not eating enough to keep her nutrition . so GI consult was requested for possible PEG placement. PAST MEDICAL HISTORY: 1. History of hyperlipidemia. 2. Hypertension. 3. COPD. 4. Dementia. ALLERGIES: Niacin. MEDICATIONS: Please see medication reconciliation list. SOCIAL HISTORY: She currently lives in a fpc. The patient denies any tobacco, alcohol, or drug abuse. FAMILY HISTORY: Noncontributory. REVIEW OF SYSTEMS: Unable to obtain. PAST SURGICAL HISTORY: Unknown. PHYSICAL EXAMINATION: VITAL SIGNS: T-max today was 101.7, pulse is 111, respirations 20, and blood pressure is 141/71. HEENT: Normocephalic and atraumatic. Sclerae anicteric. NECK: Supple. No lymphadenopathy. CARDIOVASCULAR: Tachy. Regular rate. Plus S1 and S2. LUNGS: Decreased breath sounds bilaterally based on the supine exam. ABDOMEN: Soft and nontender. No rebound. No guarding. No peritoneal signs. EXTREMITIES: No cyanosis. No clubbing. No edema. LABORATORY DATA: White blood cell count is 18.2, hemoglobin 12, hematocrit 37, and platelet count is 175,000. ASSESSMENT: This is a 71-year-old female with dementia. The patient most probably needs a gastrostomy tube, but at this time, the patient has a fever of 101 and white count is rising from 12 to 18. PLAN: Plan is to discuss with the family for possible PEG on Wednesday if the fever is gone and white count is trending down and if the family agrees to it. In terms of abnormal liver function tests, it is most probably from the infection. We will repeat the liver function test tomorrow. If continues to rise, we will do further workup including abdominal ultrasound. I want to thank Dr. Cast for this kind referral. Isreal Cleopatra Nation DR: NIDA JOB#: [id number] CC: Evangelist Cast M.D.; Fax#: [phone]
[2016-08-29] MEDS: Meropenem 1 GM in NS 110 ML IVPB SCH (17:19)
--- NOTE | 2016-08-29 19:03 | Pulmonology Progress Note ---
Assessment/Plan Problems: (1) Severe sepsis (2) Altered level of consciousness (3) COPD (chronic obstructive pulmonary disease) (4) Dementia Assessment/Plan Merepenem was added check electrolytes check cultures. talked to pts daughter, She agreed with Gtube placement initially, then today she changed her mind still febrile, cultures negative, CXR negative, urine negative HIDA scan pending Subjective ROS Limited/Unobtainable: No Interval Events: ate more than yesterday Allergies: Coded Allergies: NIACIN (Verified Allergy, Unknown, 08/26/16) Objective Last 24 Hour Vital Signs Date Time Temp Pulse Resp B/P Pulse Ox O2 Delivery O2 Flow Rate FiO2 08/29/16 16:13 98.7 08/29/16 16:00 100.8 107 20 110/69 96 Room Air 08/29/16 16:00 108 08/29/16 12:00 101 08/29/16 12:00 99.1 96 18 130/50 96 Room Air 08/29/16 11:01 99.1 08/29/16 09:01 111 145/71 08/29/16 08:00 110 08/29/16 08:00 101.7 111 20 145/71 95 Room Air 08/29/16 07:05 110 20 Room Air 21 08/29/16 04:00 87 08/29/16 04:00 97.5 77 18 127/57 100 Room Air 08/29/16 02:30 97.2 08/29/16 00:01 101.7 08/29/16 00:00 116 08/29/16 00:00 94.6 116 22 149/63 95 Room Air 08/28/16 20:00 98.1 53 20 107/73 100 Room Air 08/28/16 20:00 94 08/28/16 19:35 92 20 Room Air 21 Intake and Output 08/28/16 08/29/16 19:00 07:00 Intake Total 1015 ml 55 ml Output Total 750 ml Balance 1015 ml -695 ml Intake Oral 960 ml IV Total 55 ml 55 ml Output Urine Total 750 ml General Appearance: WD/WN HEENT: normocephalic, atraumatic Respiratory/Chest: chest wall non-tender, lungs clear Breasts: no masses Cardiovascular: normal peripheral pulses Abdomen: normal bowel sounds, soft, non tender Genitourinary: normal external genitalia Extremities: no clubbing Skin: no rash 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, no motor/sensory deficits Microbiology Date/Time Source Procedure Growth Status 08/26/16 23:50 Urine,Clean Catch Urine Culture - Final NO GROWTH AFTER 48 HOURS Complete Laboratory Tests 08/29/16 05:15: White Blood Count 18.2H, Red Blood Count 3.88L, Hemoglobin 12.7, Hematocrit 37.9 , Mean Corpuscular Volume 98, Mean Corpuscular Hemoglobin 32.7H, Mean Corpuscular Hemoglobin Concent 33.4, Red Cell Distribution Width 11.6, Platelet Count 175, Mean Platelet Volume 7.2, Neutrophils (%) (Auto) , Lymphocytes (%) ( Auto) , Monocytes (%) (Auto) , Eosinophils (%) (Auto) , Basophils (%) (Auto) , Differential Total Cells Counted 100, Neutrophils % (Manual) 84H, Lymphocytes % (Manual) 14L, Monocytes % (Manual) 2, Eosinophils % (Manual) 0, Basophils % ( Manual) 0, Band Neutrophils 0, Platelet Estimate Adequate, Platelet Morphology Normal, Red Blood Cell Morphology Normal, Prothrombin Time 11.2, Prothromb Time International Ratio 1.1, Activated Partial Thromboplast Time 42H, Sodium Level 160H, Potassium Level 3.3L, Chloride Level 119H, Carbon Dioxide Level 27, Anion Gap 14, Blood Urea Nitrogen 23, Creatinine 0.7, Estimat Glomerular Filtration Rate > 60, Glucose Level 124H, Calcium Level 9.0, Phosphorus Level 3.2, Magnesium Level 2.5, Total Bilirubin 0.7, Aspartate Amino Transf (AST/SGOT) 111H , Alanine Aminotransferase (ALT/SGPT) 166H, Alkaline Phosphatase 37, Total Protein 6.0L, Albumin 3.3L, Globulin 2.7, Albumin/Globulin Ratio 1.2, Vancomycin Level Trough 4.7L Current Medications Medications (Trade) Dose Ordered Sig/Mariluz Route PRN Reason Start Time Stop Time Status Last Admin Dose Admin Acetaminophen (Tylenol) 650 mg Q4H PRN RECTAL Prn Headache/Temp > 101 08/27/16 00:15 09/26/16 00:14 08/29/16 15:43 Al Hydroxide/Mg Hydroxide (Mylanta II) 30 ml Q6H PRN ORAL dyspepsia 08/26/16 15:30 09/25/16 15:29 Albuterol/ Ipratropium (DuoNeb 0.5-3(2.5)mg/3ml) 3 ml EVERY 4 HOURS PRN HHN Shortness of Breath 08/26/16 15:30 08/31/16 15:29 Amlodipine Besylate (Norvasc) 10 mg DAILY ORAL 08/27/16 09:00 09/26/16 08:59 08/29/16 09:01 Heparin Sodium (Porcine) (Heparin 5000 units/ml) 5,000 units EVERY 12 HOURS SUBQ 08/26/16 21:00 09/25/16 20:59 08/29/16 09:05 Meropenem/Sodium Chloride (Merrem/Sodium Chloride) 110 ml @ 220 mls/hr Q8HR IVPB 08/29/16 18:00 09/03/16 17:59 08/29/16 17:19 Nitroglycerin (Ntg) 0.4 mg Q5M PRN SL Prn Chest Pain 08/26/16 15:30 09/25/16 15:29 Olanzapine 2.5 mg 2.5 mg BEDTIME ORAL 08/28/16 21:00 09/27/16 20:59 08/28/16 22:04 Ondansetron HCl (Zofran) 4 mg Q6H PRN IVP Nausea & Vomiting 08/26/16 15:30 09/25/16 15:29 Polyethylene Glycol (Miralax) 17 gm DAILYPRN PRN ORAL Constipation 08/26/16 15:30 09/25/16 15:29 Potassium Chloride 40 meq/ Dextrose 1,020 ml @ 50 mls/hr [id number] IV 08/29/16 10:00 09/28/16 09:59 08/29/16 10:01 Promethazine HCl/ Codeine (Phenergan with Codeine) 5 ml Q4H PRN ORAL For Cough 08/26/16 15:30 09/25/16 15:29 Temazepam (Restoril) 15 mg HSPRN PRN ORAL Insomnia 08/26/16 15:30 09/02/16 15:29 Vancomycin HCl (Vanco rx to dose) 1 ea DAILY PRN MISC Per rx protocol 08/26/16 15:30 09/25/16 15:29 Vancomycin HCl 1.25 gm/Dextrose 275 ml @ 183.333 mls/hr Q12H IVPB 08/29/16 06:45 09/03/16 06:44 08/29/16 18:12 CHERYL CHRISTIAN Aug 29, 2016 19:03
[2016-08-29 20:00] VITALS: BP 111/88
[2016-08-29] MEDS: OLANZapine 2.5mg tab ORAL SCH (21:02)
[2016-08-30] VITALS: BP 115/79
[2016-08-30 04:00] VITALS: BP 135/56
[2016-08-30] MEDS ORDERED: Acetaminophen 650 MG SUPP RECTAL PRN ×2 (04:15→20:15)
[2016-08-30] MEDS: Meropenem 1 GM in NS 110 ML IVPB SCH ×3 (05:31→21:55)
[2016-08-30] MEDS: Vancomycin 1250mg/D5W 275ml IVPB SCH ×2 (06:18)
--- NOTE | 2016-08-30 07:58 | General Progress Note ---
Assessment/Plan Problem List: (1) Elevated LFTs ICD Codes: R94.5 - Abnormal results of liver function studies SNOMED: 723326364 (2) FTT (failure to thrive) in adult ICD Codes: R62.7 - Adult failure to thrive SNOMED: 942591097 (3) Dementia arising in the senium and presenium ICD Codes: F03.90 - Unspecified dementia without behavioral disturbance SNOMED: 554686724352714 (4) COPD (chronic obstructive pulmonary disease) ICD Codes: J44.9 - Chronic obstructive pulmonary disease, unspecified SNOMED: 99018370 Assessment/Plan family refused PEG at this time push po abx fu labs fu LFTS Subjective ROS Limited/Unobtainable: No Allergies: Coded Allergies: NIACIN (Verified Allergy, Unknown, 08/26/16) Objective Last 24 Hour Vital Signs Date Time Temp Pulse Resp B/P Pulse Ox O2 Delivery O2 Flow Rate FiO2 08/30/16 04:00 107 08/30/16 04:00 99.3 100 20 135/56 96 Room Air 08/30/16 00:00 96 08/30/16 00:00 98.6 105 18 115/79 97 Room Air 08/29/16 20:00 105 08/29/16 20:00 99.5 109 20 111/88 96 Room Air 08/29/16 19:02 110 20 Room Air 21 08/29/16 16:13 98.7 08/29/16 16:00 100.8 107 20 110/69 96 Room Air 08/29/16 16:00 108 08/29/16 12:00 101 08/29/16 12:00 99.1 96 18 130/50 96 Room Air 08/29/16 11:01 99.1 08/29/16 09:01 111 145/71 08/29/16 08:00 110 08/29/16 08:00 101.7 111 20 145/71 95 Room Air Intake and Output 08/29/16 08/30/16 19:00 07:00 Intake Total 981.666 ml 920.0 ml Output Total 750 ml Balance 981.666 ml 170.0 ml IV Total 981.666 ml 920.0 ml Output Urine Total 750 ml Height (Feet): 5 Height (Inches): 5.00 Weight (Pounds): 150 General Appearance: no apparent distress EENT: normal ENT inspection Neck: supple Cardiovascular: normal rate Respiratory/Chest: decreased breath sounds Abdomen: normal bowel sounds, non tender, soft Extremities: non-tender BOWEN COLBY Aug 30, 2016 07:58
[2016-08-30 08:00] VITALS: BP 154/61
[2016-08-30 08:12] LABS: BASOPHILS % (AUTO) 0.5 % (0.0-2.0); LYMPHOCYTES % (AUTO) 17.3 % (20.0-45.0); MEAN CORPUSCULAR HEMOGLOBIN 32.7 PG (27.0-31.0); MEAN CORPUSCULAR HGB CONC 33.8 G/DL (32.0-36.0); MEAN CORPUSCULAR VOLUME 97 FL (80-99); MEAN PLATELET VOLUME 8.2 FL (6.5-10.1); MONOCYTES % (AUTO) 5.5 % (1.0-10.0); NEUTROPHILS % (AUTO) 76.7 % (45.0-75.0); PLATELET COUNT 151 K/UL (150-450); RED BLOOD COUNT 3.42 M/UL (4.20-5.40); RED CELL DISTRIBUTION WIDTH 11.9 % (11.6-14.8); WHITE BLOOD COUNT 15.1 K/UL (4.8-10.8)
[2016-08-30 08:29] LABS: ALANINE AMINOTRANSFERASE 115 U/L (3-33); ALBUMIN/GLOBULIN RATIO 1.2 (1.0-2.7); ANION GAP 16 (5-15); ASPARTATE AMINO TRANSFERASE 75 U/L (5-40); CALCIUM 8.6 mg/dL (8.6-10.2); CARBON DIOXIDE 25 mEQ/L (20-30); CHLORIDE 112 mEQ/L (98-107); CREATININE 0.6 mg/dL (0.5-0.9); GLOMERULAR FILTRATION RATE > 60 mL/min (>60); HEMOLYSIS 6; POTASSIUM 3.7 mEQ/L (3.4-4.9); SODIUM 153 mEQ/L (135-145); TOTAL PROTEIN 5.5 g/dL (6.6-8.7)
[2016-08-30] MEDS ORDERED: Tubing IV Secondary IV ONE (08:37)
[2016-08-30] MEDS ORDERED: NS 275ml ONE (08:37)
[2016-08-30] MEDS: Heparin 5000 units/ml inj SUBQ SCH ×2 (09:21→21:00)
--- NOTE | 2016-08-30 09:39 | Infectious Diseases Prog Note ---
Assessment/Plan Assessment/Plan A; Sepsis with fever & Leukocytosis Cholelithiasis Dementia FTT P; continue Meropenem & Vancomycin Subjective ROS Limited/Unobtainable: Yes Constitutional: Reports: fever, other - T pzw=851.8 Allergies: Coded Allergies: NIACIN (Verified Allergy, Unknown, 08/26/16) Objective Vital Signs Last 24 Hour Vital Signs Date Time Temp Pulse Resp B/P Pulse Ox O2 Delivery O2 Flow Rate FiO2 08/30/16 09:16 101 154/61 08/30/16 08:04 101 20 Room Air 21 08/30/16 08:00 96.8 103 20 154/61 97 Room Air 08/30/16 04:00 107 08/30/16 04:00 99.3 100 20 135/56 96 Room Air 08/30/16 00:00 96 08/30/16 00:00 98.6 105 18 115/79 97 Room Air 08/29/16 20:00 105 08/29/16 20:00 99.5 109 20 111/88 96 Room Air 08/29/16 19:02 110 20 Room Air 21 08/29/16 16:13 98.7 08/29/16 16:00 100.8 107 20 110/69 96 Room Air 08/29/16 16:00 108 08/29/16 12:00 101 08/29/16 12:00 99.1 96 18 130/50 96 Room Air 08/29/16 11:01 99.1 Height (Feet): 5 Height (Inches): 5.00 Weight (Pounds): 150 General Appearance: no acute distress HEENT: mucous membranes moist Respiratory/Chest: lungs clear Cardiovascular: tachycardia Abdomen: soft, non tender Extremities: no edema Neurologic/Psychiatric: alert, responsive, aphasia Laboratory Tests Test 08/30/16 06:34 White Blood Count 15.1 K/UL (4.8-10.8) H Red Blood Count 3.42 M/UL (4.20-5.40) L Hemoglobin 11.2 G/DL (12.0-16.0) L Hematocrit 33.0 % (37.0-47.0) L Mean Corpuscular Volume 97 FL (80-99) Mean Corpuscular Hemoglobin 32.7 PG (27.0-31.0) H Mean Corpuscular Hemoglobin Concent 33.8 G/DL (32.0-36.0) Red Cell Distribution Width 11.9 % (11.6-14.8) Platelet Count 151 K/UL (150-450) Mean Platelet Volume 8.2 FL (6.5-10.1) Neutrophils (%) (Auto) 76.7 % (45.0-75.0) H Lymphocytes (%) (Auto) 17.3 % (20.0-45.0) L Monocytes (%) (Auto) 5.5 % (1.0-10.0) Eosinophils (%) (Auto) 0.0 % (0.0-3.0) Basophils (%) (Auto) 0.5 % (0.0-2.0) Sodium Level 153 mEQ/L (135-145) H Potassium Level 3.7 mEQ/L (3.4-4.9) Chloride Level 112 mEQ/L (98-107) H Carbon Dioxide Level 25 mEQ/L (20-30) Anion Gap 16 (5-15) H Blood Urea Nitrogen 21 mg/dL (7-23) Creatinine 0.6 mg/dL (0.5-0.9) Estimat Glomerular Filtration Rate > 60 mL/min (>60) Glucose Level 126 mg/dL (74-106) H Calcium Level 8.6 mg/dL (8.6-10.2) Total Bilirubin 0.6 mg/dL (0.0-1.2) Aspartate Amino Transf (AST/SGOT) 75 U/L (5-40) H Alanine Aminotransferase (ALT/SGPT) 115 U/L (3-33) H Alkaline Phosphatase 34 U/L (35-104) L Pro-B-Type Natriuretic Peptide 217 pg/mL (0-125) H Total Protein 5.5 g/dL (6.6-8.7) L Albumin 3.1 g/dL (3.5-5.2) L Globulin 2.4 g/dL Albumin/Globulin Ratio 1.2 (1.0-2.7) Current Medications Medications (Trade) Dose Ordered Sig/Mariluz Route PRN Reason Start Time Stop Time Status Last Admin Dose Admin Acetaminophen (Tylenol) 650 mg Q4H PRN RECTAL Prn Headache/Temp > 101 08/27/16 00:15 09/26/16 00:14 08/29/16 15:43 Al Hydroxide/Mg Hydroxide (Mylanta II) 30 ml Q6H PRN ORAL dyspepsia 08/26/16 15:30 09/25/16 15:29 Albuterol/ Ipratropium (DuoNeb 0.5-3(2.5)mg/3ml) 3 ml EVERY 4 HOURS PRN HHN Shortness of Breath 08/26/16 15:30 08/31/16 15:29 Amlodipine Besylate (Norvasc) 10 mg DAILY ORAL 08/27/16 09:00 09/26/16 08:59 08/30/16 09:16 Heparin Sodium (Porcine) (Heparin 5000 units/ml) 5,000 units EVERY 12 HOURS SUBQ 08/26/16 21:00 09/25/16 20:59 08/30/16 09:21 Meropenem/Sodium Chloride (Merrem/Sodium Chloride) 110 ml @ 220 mls/hr Q8HR IVPB 08/29/16 18:00 09/03/16 17:59 08/30/16 05:31 Nitroglycerin (Ntg) 0.4 mg Q5M PRN SL Prn Chest Pain 08/26/16 15:30 09/25/16 15:29 Olanzapine 2.5 mg 2.5 mg BEDTIME ORAL 08/28/16 21:00 09/27/16 20:59 08/29/16 21:02 Ondansetron HCl (Zofran) 4 mg Q6H PRN IVP Nausea & Vomiting 08/26/16 15:30 09/25/16 15:29 Polyethylene Glycol (Miralax) 17 gm DAILYPRN PRN ORAL Constipation 08/26/16 15:30 09/25/16 15:29 Potassium Chloride 40 meq/ Dextrose 1,020 ml @ 50 mls/hr [id number] IV 08/29/16 10:00 09/28/16 09:59 08/30/16 06:18 Promethazine HCl/ Codeine (Phenergan with Codeine) 5 ml Q4H PRN ORAL For Cough 08/26/16 15:30 09/25/16 15:29 Temazepam (Restoril) 15 mg HSPRN PRN ORAL Insomnia 08/26/16 15:30 09/02/16 15:29 Vancomycin HCl (Vanco rx to dose) 1 ea DAILY PRN MISC Per rx protocol 08/26/16 15:30 09/25/16 15:29 Vancomycin HCl 1.25 gm/Dextrose 275 ml @ 183.333 mls/hr Q12H IVPB 08/29/16 06:45 09/03/16 06:44 08/30/16 06:18 MOISES PEREZ Aug 30, 2016 09:39
[2016-08-30 12:00] VITALS: BP 149/56
[2016-08-30] MEDS ORDERED: DuoNeb 0.5-3(2.5)mg/3ml neb HHN PRN ×3 (15:30→17:30)
[2016-08-30] MEDS ORDERED: Nitroglycerin Subl 0.4mg tab (Bottle Of 25) SL PRN ×3 (15:35→17:30)
[2016-08-30 16:00] VITALS: BP 137/59
--- NOTE | 2016-08-30 16:18 | Pulmonology Progress Note ---
Assessment/Plan Problems: (1) Severe sepsis (2) Altered level of consciousness (3) COPD (chronic obstructive pulmonary disease) (4) Dementia Assessment/Plan Merepenem was added check electrolytes check cultures. wbc still high, but fever coming down talked to pts daughter, She agreed with Gtube placement initially, then today she changed her mind still febrile, cultures negative, CXR negative, urine negative HIDA scan pending Subjective Interval Events: awake, comfortable Allergies: Coded Allergies: NIACIN (Verified Allergy, Unknown, 08/26/16) Objective Last 24 Hour Vital Signs Date Time Temp Pulse Resp B/P Pulse Ox O2 Delivery O2 Flow Rate FiO2 08/30/16 12:00 98 08/30/16 12:00 97.9 99 19 149/56 96 Room Air 08/30/16 09:16 101 154/61 08/30/16 08:04 101 20 Room Air 21 08/30/16 08:00 96.8 103 20 154/61 97 Room Air 08/30/16 08:00 103 08/30/16 04:00 107 08/30/16 04:00 99.3 100 20 135/56 96 Room Air 08/30/16 00:00 96 08/30/16 00:00 98.6 105 18 115/79 97 Room Air 08/29/16 20:00 105 08/29/16 20:00 99.5 109 20 111/88 96 Room Air 08/29/16 19:02 110 20 Room Air 21 Intake and Output 08/29/16 08/30/16 19:00 07:00 Intake Total 981.666 ml 920.0 ml Output Total 750 ml Balance 981.666 ml 170.0 ml IV Total 981.666 ml 920.0 ml Output Urine Total 750 ml General Appearance: cachetic HEENT: normocephalic Respiratory/Chest: chest wall non-tender, lungs clear Breasts: no masses Cardiovascular: normal peripheral pulses, normal rate Abdomen: normal bowel sounds, soft, non tender Genitourinary: normal external genitalia Extremities: no cyanosis Laboratory Tests 08/30/16 06:34: White Blood Count 15.1H, Red Blood Count 3.42L, Hemoglobin 11.2L, Hematocrit 33.0L, Mean Corpuscular Volume 97, Mean Corpuscular Hemoglobin 32.7H, Mean Corpuscular Hemoglobin Concent 33.8, Red Cell Distribution Width 11.9, Platelet Count 151, Mean Platelet Volume 8.2, Neutrophils (%) (Auto) 76.7H, Lymphocytes ( %) (Auto) 17.3L, Monocytes (%) (Auto) 5.5, Eosinophils (%) (Auto) 0.0, Basophils (%) (Auto) 0.5, Sodium Level 153H, Potassium Level 3.7, Chloride Level 112H, Carbon Dioxide Level 25, Anion Gap 16H, Blood Urea Nitrogen 21, Creatinine 0.6, Estimat Glomerular Filtration Rate > 60, Glucose Level 126H, Calcium Level 8.6, Total Bilirubin 0.6, Aspartate Amino Transf (AST/SGOT) 75H, Alanine Aminotransferase (ALT/SGPT) 115H, Alkaline Phosphatase 34L, Pro-B-Type Natriuretic Peptide 217H, Total Protein 5.5L, Albumin 3.1L, Globulin 2.4, Albumin/Globulin Ratio 1.2 Current Medications Medications (Trade) Dose Ordered Sig/Mariluz Route PRN Reason Start Time Stop Time Status Last Admin Dose Admin Acetaminophen (Tylenol) 650 mg Q4H PRN RECTAL Prn Headache/Temp > 101 08/27/16 00:15 09/26/16 00:14 08/29/16 15:43 Al Hydroxide/Mg Hydroxide (Mylanta II) 30 ml Q6H PRN ORAL dyspepsia 08/26/16 15:30 09/25/16 15:29 Albuterol/ Ipratropium (DuoNeb 0.5-3(2.5)mg/3ml) 3 ml EVERY 4 HOURS PRN HHN Shortness of Breath 08/26/16 15:30 08/31/16 15:29 Amlodipine Besylate (Norvasc) 10 mg DAILY ORAL 08/27/16 09:00 09/26/16 08:59 08/30/16 09:16 Heparin Sodium (Porcine) (Heparin 5000 units/ml) 5,000 units EVERY 12 HOURS SUBQ 08/26/16 21:00 09/25/16 20:59 08/30/16 09:21 Meropenem/Sodium Chloride (Merrem/Sodium Chloride) 110 ml @ 220 mls/hr Q8HR IVPB 08/29/16 18:00 09/03/16 17:59 08/30/16 14:07 Nitroglycerin (Ntg) 0.4 mg Q5M PRN SL Prn Chest Pain 08/26/16 15:30 09/25/16 15:29 Olanzapine 2.5 mg 2.5 mg BEDTIME ORAL 08/28/16 21:00 09/27/16 20:59 08/29/16 21:02 Ondansetron HCl (Zofran) 4 mg Q6H PRN IVP Nausea & Vomiting 08/26/16 15:30 09/25/16 15:29 Polyethylene Glycol (Miralax) 17 gm DAILYPRN PRN ORAL Constipation 08/26/16 15:30 09/25/16 15:29 Potassium Chloride 40 meq/ Dextrose 1,020 ml @ 50 mls/hr [id number] IV 08/29/16 10:00 09/28/16 09:59 08/30/16 06:18 Promethazine HCl/ Codeine (Phenergan with Codeine) 5 ml Q4H PRN ORAL For Cough 08/26/16 15:30 09/25/16 15:29 Temazepam (Restoril) 15 mg HSPRN PRN ORAL Insomnia 08/26/16 15:30 09/02/16 15:29 Vancomycin HCl (Vanco rx to dose) 1 ea DAILY PRN MISC Per rx protocol 08/26/16 15:30 09/25/16 15:29 Vancomycin HCl 1.25 gm/Dextrose 275 ml @ 183.333 mls/hr Q12H IVPB 08/29/16 06:45 09/03/16 06:44 08/30/16 06:18 CHERYL CHRISTIAN Aug 30, 2016 16:18
[2016-08-30] MEDS ORDERED: Mylanta II UD 30ml ORAL PRN ×3 (17:30→21:30)
[2016-08-30] MEDS ORDERED: Promethazine/Codeine 5ml UD ORAL PRN ×3 (17:30→19:30)
[2016-08-30] MEDS ORDERED: Miralax 17gm pkt ORAL PRN (17:45)
[2016-08-30] MEDS ORDERED: Meropenem 1 GM in NS 110 ML IVPB SCH ×2 (18:00→22:00)
[2016-08-30] MEDS ORDERED: Vancomycin 1.25 GM in D5W 275 ML IVPB SCH ×4 (18:45)
[2016-08-30] MEDS: Vancomycin 1.25 GM in D5W 275 ML IVPB SCH (19:40)
[2016-08-30 20:02] VITALS: BP 139/56
[2016-08-30] MEDS ORDERED: OLANZapine 2.5mg tab ORAL SCH ×2 (21:00)
[2016-08-30] MEDS: OLANZapine 2.5mg tab ORAL SCH (21:00)
[2016-08-30] MEDS ORDERED: Heparin 5000 units/ml inj SUBQ SCH ×2 (21:00)
[2016-08-31 00:18] VITALS: BP 136/86
[2016-08-31 04:00] VITALS: BP 128/72
[2016-08-31] MEDS: Meropenem 1 GM in NS 110 ML IVPB SCH ×3 (05:24→22:07)
[2016-08-31] MEDS: Acetaminophen 650 MG SUPP RECTAL PRN ×2 (05:37→19:57)
[2016-08-31] MEDS: Vancomycin 1.25 GM in D5W 275 ML IVPB SCH ×2 (06:47→18:06)
[2016-08-31 07:09] LABS: ALANINE AMINOTRANSFERASE 104 U/L (3-33); ALBUMIN/GLOBULIN RATIO 1.1 (1.0-2.7); ANION GAP 13 (5-15); ASPARTATE AMINO TRANSFERASE 70 U/L (5-40); CALCIUM 8.7 mg/dL (8.6-10.2); CARBON DIOXIDE 26 mEQ/L (20-30); CHLORIDE 115 mEQ/L (98-107); CREATININE 0.6 mg/dL (0.5-0.9); GLOMERULAR FILTRATION RATE > 60 mL/min (>60); HEMOLYSIS 2; POTASSIUM 4.1 mEQ/L (3.4-4.9); SODIUM 154 mEQ/L (135-145); TOTAL PROTEIN 5.2 g/dL (6.6-8.7)
[2016-08-31 07:28] LABS: BASOPHILS % (AUTO) 0.4 % (0.0-2.0); EOSINOPHILS % (AUTO) 0.1 % (0.0-3.0); LYMPHOCYTES % (AUTO) 16.7 % (20.0-45.0); MEAN CORPUSCULAR HEMOGLOBIN 34.9 PG (27.0-31.0); MEAN CORPUSCULAR HGB CONC 35.7 G/DL (32.0-36.0); MEAN CORPUSCULAR VOLUME 98 FL (80-99); MEAN PLATELET VOLUME 8.1 FL (6.5-10.1); MONOCYTES % (AUTO) 5.7 % (1.0-10.0); NEUTROPHILS % (AUTO) 77.1 % (45.0-75.0); PLATELET COUNT 145 K/UL (150-450); RED BLOOD COUNT 2.86 M/UL (4.20-5.40); RED CELL DISTRIBUTION WIDTH 11.3 % (11.6-14.8); WHITE BLOOD COUNT 13.1 K/UL (4.8-10.8)
[2016-08-31 08:00] VITALS: BP 132/61
[2016-08-31] MEDS: Heparin 5000 units/ml inj SUBQ SCH ×2 (09:00→20:43)
--- NOTE | 2016-08-31 09:11 | Diagnostic Imaging Report ---
Indication: Dyspnea Comparison: 08/26/16 A single view chest radiograph was obtained. Findings: Cardiac silhouette appears slightly larger. Pulmonary vascularity is more prominent but there is no overt CHF or interstitial/alveolar air space disease identified. The bones are osteopenic. Impression: No acute disease
--- NOTE | 2016-08-31 09:11 | Cardiology Report ---
APPROVED REPORT EKG Measurement Heart [id number] [place] [id number] [id number] Sinus tachycardia with short [place] Abnormal ECG
--- NOTE | 2016-08-31 09:21 | Infectious Diseases Prog Note ---
Assessment/Plan Assessment/Plan H ASSESSMENT: 71 y/o female with: // Elevated LFTs / improving GI following - US: Mildly dilated common bile duct and central intrahepatic ducts. While possibly on the basis of senescent change downstream obstruction not completely excludable. // Fever - persists , Cultures NGTD // Leukocytosis - improving // Lactic acidosis - resolved // Negative influenza // Sepsis , SP // Acute on chronic encephalopathy - SP LP, no evidence of meningitis/encephalitis. VDRL NR - CT Head: Chronic and age-related changes, multiple old infarcts. Negative for acute intracranial bleed or mass effect - baseline advanced dementia // Dysphagia - plan possible PEG // Mild right hydronephrosis // NH resident // No ABX allergies // DNR PLAN: - continue empiric IV vancomycin d# 5 / . cont meropenem d# 3 08/30 SP cefepime d# 3 - HIDA :P - f/u cultures - monitor CBC, temperatures - monitor BMP - possible PEG - f/u GI eval Subjective Constitutional: Denies: anorexia, chills, drenching sweats, fatigue, fever, no symptoms, other Allergies: Coded Allergies: NIACIN (Verified Allergy, Unknown, 08/26/16) Objective Vital Signs Last 24 Hour Vital Signs Date Time Temp Pulse Resp B/P Pulse Ox O2 Delivery O2 Flow Rate FiO2 08/31/16 09:05 96 132/61 08/31/16 08:00 101.8 96 20 132/61 94 Room Air 08/31/16 07:27 87 20 Room Air 08/31/16 06:37 101.0 08/31/16 06:37 101.0 08/31/16 05:30 102.2 87 08/31/16 04:00 99.0 89 19 128/72 95 Room Air 08/31/16 00:18 100.9 60 20 136/86 96 Room Air 08/30/16 20:02 99.9 92 19 139/56 96 Room Air 08/30/16 19:53 90 20 Room Air 21 08/30/16 16:00 99.3 97 18 137/59 96 Room Air 08/30/16 16:00 88 08/30/16 12:00 98 08/30/16 12:00 97.9 99 19 149/56 96 Room Air 6/11/17 10:30 98.4 Height (Feet): 5 Height (Inches): 5.00 Weight (Pounds): 150 HEENT: anicteric Respiratory/Chest: no respiratory distress Cardiovascular: no gallop/murmur Abdomen: non distended Laboratory Tests Test 08/30/16 18:10 08/31/16 06:05 Vancomycin Level Trough 14.2 ug/mL (5.0-12.0) H White Blood Count 13.1 K/UL (4.8-10.8) H Red Blood Count 2.86 M/UL (4.20-5.40) L Hemoglobin 10.0 G/DL (12.0-16.0) L Hematocrit 27.9 % (37.0-47.0) L Mean Corpuscular Volume 98 FL (80-99) Mean Corpuscular Hemoglobin 34.9 PG (27.0-31.0) H Mean Corpuscular Hemoglobin Concent 35.7 G/DL (32.0-36.0) Red Cell Distribution Width 11.3 % (11.6-14.8) L Platelet Count 145 K/UL (150-450) L Mean Platelet Volume 8.1 FL (6.5-10.1) Neutrophils (%) (Auto) 77.1 % (45.0-75.0) H Lymphocytes (%) (Auto) 16.7 % (20.0-45.0) L Monocytes (%) (Auto) 5.7 % (1.0-10.0) Eosinophils (%) (Auto) 0.1 % (0.0-3.0) Basophils (%) (Auto) 0.4 % (0.0-2.0) Sodium Level 154 mEQ/L (135-145) H Potassium Level 4.1 mEQ/L (3.4-4.9) Chloride Level 115 mEQ/L (98-107) H Carbon Dioxide Level 26 mEQ/L (20-30) Anion Gap 13 (5-15) Blood Urea Nitrogen 14 mg/dL (7-23) Creatinine 0.6 mg/dL (0.5-0.9) Estimat Glomerular Filtration Rate > 60 mL/min (>60) Glucose Level 111 mg/dL (74-106) H Calcium Level 8.7 mg/dL (8.6-10.2) Total Bilirubin 0.6 mg/dL (0.0-1.2) Aspartate Amino Transf (AST/SGOT) 70 U/L (5-40) H Alanine Aminotransferase (ALT/SGPT) 104 U/L (3-33) H Alkaline Phosphatase 35 U/L (35-104) Total Protein 5.2 g/dL (6.6-8.7) L Albumin 2.8 g/dL (3.5-5.2) L Globulin 2.4 g/dL Albumin/Globulin Ratio 1.1 (1.0-2.7) Current Medications Medications (Trade) Dose Ordered Sig/Mariluz Route PRN Reason Start Time Stop Time Status Last Admin Dose Admin Acetaminophen (Tylenol) 650 mg Q4H PRN RECTAL Prn Headache/Temp > 101 08/30/16 17:30 09/29/16 17:29 08/31/16 05:37 Albuterol/ Ipratropium (DuoNeb 0.5-3(2.5)mg/3ml) 3 ml Q4H PRN HHN Shortness of Breath 08/30/16 17:30 09/04/16 17:29 Amlodipine Besylate (Norvasc) 10 mg DAILY ORAL 08/31/16 09:00 09/30/16 08:59 08/31/16 09:05 Heparin Sodium (Porcine) (Heparin 5000 units/ml) 5,000 units EVERY 12 HOURS SUBQ 08/30/16 21:00 09/29/16 20:59 08/30/16 21:00 Meropenem 1 gm/ Sodium Chloride 110 ml @ 220 mls/hr Q8HR IVPB 08/30/16 22:00 09/04/16 21:59 08/31/16 05:24 Nitroglycerin (Ntg) 0.4 mg Q5M PRN SL Prn Chest Pain 08/30/16 17:30 09/29/16 17:29 Olanzapine (ZyPREXA) 2.5 mg BEDTIME ORAL 08/30/16 21:00 09/29/16 20:59 08/30/16 21:00 Ondansetron HCl (Zofran) 4 mg Q6H PRN IVP Nausea & Vomiting 08/30/16 17:30 09/29/16 17:29 Polyethylene Glycol (Miralax) 17 gm DAILYPRN PRN ORAL Constipation 08/30/16 17:45 09/29/16 17:44 Potassium Chloride 40 meq/ Dextrose 1,020 ml @ 50 mls/hr [id number] IV 08/30/16 18:30 09/29/16 18:29 08/31/16 03:48 Promethazine HCl/ Codeine (Phenergan with Codeine) 5 ml Q4H PRN ORAL For Cough 08/30/16 17:30 09/29/16 17:29 Temazepam (Restoril) 15 mg HSPRN PRN ORAL Insomnia 08/30/16 21:00 09/06/16 20:59 Vancomycin HCl 1 ea 1 ea DAILY PRN MISC Per rx protocol 08/30/16 17:30 09/29/16 17:29 Vancomycin HCl/ Dextrose (Vancomycin/D5W) 275 ml @ 183.333 mls/hr Q12H IVPB 08/30/16 18:45 09/04/16 18:44 08/31/16 06:47 SAMREEN ORO M.D. Aug 31, 2016 09:21
--- NOTE | 2016-08-31 10:26 | GI Progress Note ---
Assessment/Plan Problems: (1) FTT (failure to thrive) in adult ICD Codes: R62.7 - Adult failure to thrive SNOMED: 441376875 (2) Elevated LFTs ICD Codes: R94.5 - Abnormal results of liver function studies SNOMED: 495530556 (3) Dementia ICD Codes: F03.90 - Unspecified dementia without behavioral disturbance SNOMED: 33798374 (4) Altered level of consciousness ICD Codes: R40.4 - Transient alteration of awareness SNOMED: 1960664 Status: unchanged Status Narrative Discussed with Dr. Nation. Assessment/Plan PEG refused by family at this time push po, ate 50% of breakfast today abx fu labs fu LFTS, downtrending Subjective Subjective limited Objective Last 24 Hour Vital Signs Date Time Temp Pulse Resp B/P Pulse Ox O2 Delivery O2 Flow Rate FiO2 08/31/16 09:05 96 132/61 08/31/16 08:00 101.8 96 20 132/61 94 Room Air 08/31/16 07:27 87 20 Room Air 08/31/16 06:37 101.0 08/31/16 06:37 101.0 08/31/16 05:30 102.2 87 08/31/16 04:00 99.0 89 19 128/72 95 Room Air 08/31/16 00:18 100.9 60 20 136/86 96 Room Air 08/30/16 20:02 99.9 92 19 139/56 96 Room Air 08/30/16 19:53 90 20 Room Air 21 08/30/16 16:00 99.3 97 18 137/59 96 Room Air 08/30/16 16:00 88 08/30/16 12:00 98 08/30/16 12:00 97.9 99 19 149/56 96 Room Air 08/30/16 10:30 98.4 Intake and Output 08/30/16 08/31/16 19:00 07:00 Intake Total 926.6 ml Output Total 550 ml 600 ml Balance 376.6 ml -600 ml IV Total 926.6 ml Output Urine Total 550 ml 600 ml # Voids 1 Laboratory Tests Test 08/30/16 18:10 08/31/16 06:05 Vancomycin Level Trough 14.2 ug/mL (5.0-12.0) H White Blood Count 13.1 K/UL (4.8-10.8) H Red Blood Count 2.86 M/UL (4.20-5.40) L Hemoglobin 10.0 G/DL (12.0-16.0) L Hematocrit 27.9 % (37.0-47.0) L Mean Corpuscular Volume 98 FL (80-99) Mean Corpuscular Hemoglobin 34.9 PG (27.0-31.0) H Mean Corpuscular Hemoglobin Concent 35.7 G/DL (32.0-36.0) Red Cell Distribution Width 11.3 % (11.6-14.8) L Platelet Count 145 K/UL (150-450) L Mean Platelet Volume 8.1 FL (6.5-10.1) Neutrophils (%) (Auto) 77.1 % (45.0-75.0) H Lymphocytes (%) (Auto) 16.7 % (20.0-45.0) L Monocytes (%) (Auto) 5.7 % (1.0-10.0) Eosinophils (%) (Auto) 0.1 % (0.0-3.0) Basophils (%) (Auto) 0.4 % (0.0-2.0) Sodium Level 154 mEQ/L (135-145) H Potassium Level 4.1 mEQ/L (3.4-4.9) Chloride Level 115 mEQ/L (98-107) H Carbon Dioxide Level 26 mEQ/L (20-30) Anion Gap 13 (5-15) Blood Urea Nitrogen 14 mg/dL (7-23) Creatinine 0.6 mg/dL (0.5-0.9) Estimat Glomerular Filtration Rate > 60 mL/min (>60) Glucose Level 111 mg/dL (74-106) H Calcium Level 8.7 mg/dL (8.6-10.2) Total Bilirubin 0.6 mg/dL (0.0-1.2) Aspartate Amino Transf (AST/SGOT) 70 U/L (5-40) H Alanine Aminotransferase (ALT/SGPT) 104 U/L (3-33) H Alkaline Phosphatase 35 U/L (35-104) Total Protein 5.2 g/dL (6.6-8.7) L Albumin 2.8 g/dL (3.5-5.2) L Globulin 2.4 g/dL Albumin/Globulin Ratio 1.1 (1.0-2.7) Height (Feet): 5 Height (Inches): 5.00 Weight (Pounds): 150 General Appearance: no apparent distress, alert Cardiovascular: normal rate Respiratory/Chest: no respiratory distress Abdominal Exam: soft Olesya Paula N.P. Aug 31, 2016 10:26
[2016-08-31 12:00] VITALS: BP 130/85
--- NOTE | 2016-08-31 15:13 | Pulmonology Progress Note ---
Assessment/Plan Problems: (1) Severe sepsis (2) Altered level of consciousness (3) COPD (chronic obstructive pulmonary disease) (4) Dementia Assessment/Plan on Merepenem check electrolytes check cultures. all negative so far wbc still high, but fever coming down talked to pts daughter, She agreed with Gtube placement initially, then today she changed her mind still febrile, cultures negative, CXR negative, urine negative HIDA scan can not be done, Will get CT abd/pelvis Subjective ROS Limited/Unobtainable: No Constitutional: Reports: no symptoms HEENT: Repors: no symptoms Respiratory: Reports: no symptoms Allergies: Coded Allergies: NIACIN (Verified Allergy, Unknown, 08/26/16) Objective Last 24 Hour Vital Signs Date Time Temp Pulse Resp B/P Pulse Ox O2 Delivery O2 Flow Rate FiO2 08/31/16 12:00 101.5 95 20 130/85 94 Room Air 08/31/16 09:05 96 132/61 08/31/16 09:00 100.8 08/31/16 08:00 101.8 96 20 132/61 94 Room Air 08/31/16 07:27 87 20 Room Air 08/31/16 06:37 101.0 08/31/16 06:37 101.0 08/31/16 05:30 102.2 87 08/31/16 04:00 99.0 89 19 128/72 95 Room Air 08/31/16 00:18 100.9 60 20 136/86 96 Room Air 08/30/16 20:02 99.9 92 19 139/56 96 Room Air 08/30/16 19:53 90 20 Room Air 21 08/30/16 16:00 99.3 97 18 137/59 96 Room Air 08/30/16 16:00 88 Intake and Output 08/30/16 08/31/16 19:00 07:00 Intake Total 926.6 ml Output Total 550 ml 600 ml Balance 376.6 ml -600 ml IV Total 926.6 ml Output Urine Total 550 ml 600 ml # Voids 1 General Appearance: WD/WN HEENT: normocephalic, atraumatic Respiratory/Chest: chest wall non-tender, lungs clear Cardiovascular: normal peripheral pulses, normal rate, regular rhythm Abdomen: normal bowel sounds, soft, non tender Genitourinary: normal external genitalia Extremities: no cyanosis Skin: no rash 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, normal mood/affect Lymphatic: no neck adenopathy Laboratory Tests 08/30/16 18:10: Vancomycin Level Trough 14.2H 08/31/16 06:05: White Blood Count 13.1H, Red Blood Count 2.86L, Hemoglobin 10.0L, Hematocrit 27.9L, Mean Corpuscular Volume 98, Mean Corpuscular Hemoglobin 34.9H, Mean Corpuscular Hemoglobin Concent 35.7, Red Cell Distribution Width 11.3L, Platelet Count 145L, Mean Platelet Volume 8.1, Neutrophils (%) (Auto) 77.1H, Lymphocytes (%) (Auto) 16.7L, Monocytes (%) (Auto) 5.7, Eosinophils (%) (Auto) 0.1, Basophils (%) (Auto) 0.4, Sodium Level 154H, Potassium Level 4.1, Chloride Level 115H, Carbon Dioxide Level 26, Anion Gap 13, Blood Urea Nitrogen 14, Creatinine 0.6, Estimat Glomerular Filtration Rate > 60, Glucose Level 111H, Calcium Level 8.7, Total Bilirubin 0.6, Aspartate Amino Transf (AST/SGOT) 70H, Alanine Aminotransferase (ALT/SGPT) 104H, Alkaline Phosphatase 35, Total Protein 5.2L, Albumin 2.8L, Globulin 2.4, Albumin/Globulin Ratio 1.1 Current Medications Medications (Trade) Dose Ordered Sig/Mariluz Route PRN Reason Start Time Stop Time Status Last Admin Dose Admin Acetaminophen (Tylenol) 650 mg Q4H PRN RECTAL Prn Headache/Temp > 101 08/30/16 17:30 09/29/16 17:29 08/31/16 05:37 Albuterol/ Ipratropium (DuoNeb 0.5-3(2.5)mg/3ml) 3 ml Q4H PRN HHN Shortness of Breath 08/30/16 17:30 09/04/16 17:29 Amlodipine Besylate (Norvasc) 10 mg DAILY ORAL 08/31/16 09:00 09/30/16 08:59 08/31/16 09:05 Heparin Sodium (Porcine) (Heparin 5000 units/ml) 5,000 units EVERY 12 HOURS SUBQ 08/30/16 21:00 09/29/16 20:59 08/30/16 21:00 Meropenem 1 gm/ Sodium Chloride 110 ml @ 220 mls/hr Q8HR IVPB 08/30/16 22:00 09/04/16 21:59 08/31/16 13:37 Nitroglycerin (Ntg) 0.4 mg Q5M PRN SL Prn Chest Pain 08/30/16 17:30 09/29/16 17:29 Olanzapine (ZyPREXA) 2.5 mg BEDTIME ORAL 08/30/16 21:00 09/29/16 20:59 08/30/16 21:00 Ondansetron HCl (Zofran) 4 mg Q6H PRN IVP Nausea & Vomiting 08/30/16 17:30 09/29/16 17:29 Polyethylene Glycol (Miralax) 17 gm DAILYPRN PRN ORAL Constipation 08/30/16 17:45 09/29/16 17:44 Potassium Chloride 40 meq/ Dextrose 1,020 ml @ 50 mls/hr [id number] IV 08/30/16 18:30 09/29/16 18:29 08/31/16 03:48 Promethazine HCl/ Codeine (Phenergan with Codeine) 5 ml Q4H PRN ORAL For Cough 08/30/16 17:30 09/29/16 17:29 Temazepam (Restoril) 15 mg HSPRN PRN ORAL Insomnia 08/30/16 21:00 09/06/16 20:59 Vancomycin HCl 1 ea 1 ea DAILY PRN MISC Per rx protocol 08/30/16 17:30 09/29/16 17:29 Vancomycin HCl/ Dextrose (Vancomycin/D5W) 275 ml @ 183.333 mls/hr Q12H IVPB 08/30/16 18:45 09/04/16 18:44 08/31/16 06:47 CHERYL CHRISTIAN Aug 31, 2016 15:13
[2016-08-31] MEDS ORDERED: Miralax 17gm pkt ORAL PRN ×2 (15:30)
[2016-08-31 16:00] VITALS: BP 138/59
[2016-08-31 20:00] VITALS: BP 134/67
[2016-08-31] MEDS: OLANZapine 2.5mg tab ORAL SCH (20:39)
[2016-09-01] VITALS (7 sets, daily range): BP systolic 116–141; BP diastolic 60–100
[2016-09-01] MEDS: Meropenem 1 GM in NS 110 ML IVPB SCH ×3 (05:05→21:19)
[2016-09-01] MEDS: Acetaminophen 650 MG SUPP RECTAL PRN (05:18)
[2016-09-01] MEDS: Vancomycin 1.25 GM in D5W 275 ML IVPB SCH ×2 (05:58→17:41)
[2016-09-01 07:26] LABS: BASOPHILS % (AUTO) 0.4 % (0.0-2.0); EOSINOPHILS % (AUTO) 0.4 % (0.0-3.0); LYMPHOCYTES % (AUTO) 17.6 % (20.0-45.0); MEAN CORPUSCULAR HEMOGLOBIN 32.7 PG (27.0-31.0); MEAN CORPUSCULAR VOLUME 96 FL (80-99); MEAN PLATELET VOLUME 8.3 FL (6.5-10.1); MONOCYTES % (AUTO) 5.6 % (1.0-10.0); PLATELET COUNT 186 K/UL (150-450); RED BLOOD COUNT 3.28 M/UL (4.20-5.40); RED CELL DISTRIBUTION WIDTH 11.2 % (11.6-14.8); WHITE BLOOD COUNT 11.7 K/UL (4.8-10.8)
[2016-09-01 07:58] LABS: ALANINE AMINOTRANSFERASE 242 U/L (3-33); ANION GAP 14 (5-15); ASPARTATE AMINO TRANSFERASE 240 U/L (5-40); CALCIUM 8.5 mg/dL (8.6-10.2); CARBON DIOXIDE 24 mEQ/L (20-30); CHLORIDE 108 mEQ/L (98-107); CREATININE 0.6 mg/dL (0.5-0.9); GLOMERULAR FILTRATION RATE > 60 mL/min (>60); HEMOLYSIS 2; POTASSIUM 4.2 mEQ/L (3.4-4.9); SODIUM 146 mEQ/L (135-145); TOTAL PROTEIN 5.7 g/dL (6.6-8.7)
[2016-09-01] MEDS: Heparin 5000 units/ml inj SUBQ SCH ×2 (08:56→21:20)
--- NOTE | 2016-09-01 10:01 | Infectious Diseases Prog Note ---
Assessment/Plan Assessment/Plan H ASSESSMENT: 71 y/o female with: // Elevated LFTs / improving GI following - US: Mildly dilated common bile duct and central intrahepatic ducts. While possibly on the basis of senescent change downstream obstruction not completely excludable. // Fever - persists , Cultures NGTD // Leukocytosis - improving // Lactic acidosis - resolved // Negative influenza // Sepsis , SP // Acute on chronic encephalopathy - SP LP, no evidence of meningitis/encephalitis. VDRL NR - CT Head: Chronic and age-related changes, multiple old infarcts. Negative for acute intracranial bleed or mass effect - baseline advanced dementia // Dysphagia - plan possible PEG // Mild right hydronephrosis // NH resident // No ABX allergies // DNR PLAN: - continue empiric IV vancomycin d# . cont meropenem d# 4 08/30 SP cefepime d# 3 - HIDA :P - f/u cultures - monitor CBC, temperatures - monitor BMP - possible PEG - f/u GI eval - CT of Abd : P Subjective Allergies: Coded Allergies: NIACIN (Verified Allergy, Unknown, 08/26/16) Subjective Fever Objective Vital Signs Last 24 Hour Vital Signs Date Time Temp Pulse Resp B/P Pulse Ox O2 Delivery O2 Flow Rate FiO2 09/01/16 08:45 81 134/60 09/01/16 08:00 98.4 76 18 141/62 96 Room Air 09/01/16 07:15 81 20 Room Air 09/01/16 05:56 98.2 09/01/16 04:00 101.1 100 20 134/60 93 Room Air 09/01/16 00:07 101.7 91 18 116/66 94 Room Air 08/31/16 20:00 100.9 99 19 134/67 97 Room Air 08/31/16 19:07 98 20 Room Air 21 08/31/16 16:00 97.9 103 20 138/59 96 Room Air 08/31/16 12:00 101.5 95 20 130/85 94 Room Air Height (Feet): 5 Height (Inches): 5.00 Weight (Pounds): 150 HEENT: anicteric Respiratory/Chest: normal breath sounds Cardiovascular: normal rate Abdomen: non distended Laboratory Tests Test 09/01/16 04:35 White Blood Count 11.7 K/UL (4.8-10.8) H Red Blood Count 3.28 M/UL (4.20-5.40) L Hemoglobin 10.7 G/DL (12.0-16.0) L Hematocrit 31.5 % (37.0-47.0) L Mean Corpuscular Volume 96 FL (80-99) Mean Corpuscular Hemoglobin 32.7 PG (27.0-31.0) H Mean Corpuscular Hemoglobin Concent 34.0 G/DL (32.0-36.0) Red Cell Distribution Width 11.2 % (11.6-14.8) L Platelet Count 186 K/UL (150-450) Mean Platelet Volume 8.3 FL (6.5-10.1) Neutrophils (%) (Auto) 76.0 % (45.0-75.0) H Lymphocytes (%) (Auto) 17.6 % (20.0-45.0) L Monocytes (%) (Auto) 5.6 % (1.0-10.0) Eosinophils (%) (Auto) 0.4 % (0.0-3.0) Basophils (%) (Auto) 0.4 % (0.0-2.0) Sodium Level 146 mEQ/L (135-145) H Potassium Level 4.2 mEQ/L (3.4-4.9) Chloride Level 108 mEQ/L (98-107) H Carbon Dioxide Level 24 mEQ/L (20-30) Anion Gap 14 (5-15) Blood Urea Nitrogen 13 mg/dL (7-23) Creatinine 0.6 mg/dL (0.5-0.9) Estimat Glomerular Filtration Rate > 60 mL/min (>60) Glucose Level 105 mg/dL (74-106) Calcium Level 8.5 mg/dL (8.6-10.2) L Total Bilirubin 0.6 mg/dL (0.0-1.2) Aspartate Amino Transf (AST/SGOT) 240 U/L (5-40) H Alanine Aminotransferase (ALT/SGPT) 242 U/L (3-33) H Alkaline Phosphatase 53 U/L (35-104) Total Protein 5.7 g/dL (6.6-8.7) L Albumin 2.9 g/dL (3.5-5.2) L Globulin 2.8 g/dL Albumin/Globulin Ratio 1.0 (1.0-2.7) Current Medications Medications (Trade) Dose Ordered Sig/Marliuz Route PRN Reason Start Time Stop Time Status Last Admin Dose Admin Acetaminophen (Tylenol) 650 mg Q4H PRN RECTAL Prn Headache/Temp > 101 08/30/16 17:30 09/29/16 17:29 09/01/16 05:18 Albuterol/ Ipratropium (DuoNeb 0.5-3(2.5)mg/3ml) 3 ml Q4H PRN HHN Shortness of Breath 08/30/16 17:30 09/04/16 17:29 Amlodipine Besylate (Norvasc) 10 mg DAILY ORAL 08/31/16 09:00 09/30/16 08:59 09/01/16 08:45 Heparin Sodium (Porcine) (Heparin 5000 units/ml) 5,000 units EVERY 12 HOURS SUBQ 08/30/16 21:00 09/29/16 20:59 09/01/16 08:56 Meropenem 1 gm/ Sodium Chloride 110 ml @ 220 mls/hr Q8HR IVPB 08/30/16 22:00 09/04/16 21:59 09/01/16 05:05 Nitroglycerin (Ntg) 0.4 mg Q5M PRN SL Prn Chest Pain 08/30/16 17:30 09/29/16 17:29 Olanzapine (ZyPREXA) 2.5 mg BEDTIME ORAL 08/30/16 21:00 09/29/16 20:59 08/31/16 20:39 Ondansetron HCl (Zofran) 4 mg Q6H PRN IVP Nausea & Vomiting 08/30/16 17:30 09/29/16 17:29 Polyethylene Glycol (Miralax) 17 gm DAILYPRN PRN ORAL Constipation 08/30/16 17:45 09/29/16 17:44 Potassium Chloride 40 meq/ Dextrose 1,020 ml @ 50 mls/hr [id number] IV 08/30/16 18:30 09/29/16 18:29 08/31/16 03:48 Promethazine HCl/ Codeine (Phenergan with Codeine) 5 ml Q4H PRN ORAL For Cough 08/30/16 17:30 09/29/16 17:29 Temazepam (Restoril) 15 mg HSPRN PRN ORAL Insomnia 08/30/16 21:00 09/06/16 20:59 Vancomycin HCl 1 ea 1 ea DAILY PRN MISC Per rx protocol 08/30/16 17:30 09/29/16 17:29 Vancomycin HCl/ Dextrose (Vancomycin/D5W) 275 ml @ 183.333 mls/hr Q12H IVPB 08/30/16 18:45 09/04/16 18:44 09/01/16 05:58 SAMREEN ORO M.D. Sep 01, 2016 10:01
--- NOTE | 2016-09-01 12:15 | Diagnostic Imaging Report ---
Indications: Abdominal pain Technique: Continuous helical CT imaging of the abdomen and pelvis was performed with automatic exposure control following administration of oral and intravenous nonionic iodine contrast, on a Siemens sensation [address] scanner. Axial, coronal, and sagittal images were reconstructed at 5 mm slice thickness. CTDI volume(s): 13 mGy Total DLP: 669 mGy-cm Findings: Comparison: None Oral contrast has passed throughout the gastrointestinal tract to the rectum. Entire tract nondilated. Stomach and much of small bowel unopacified, limiting evaluation. Appendix not identified. No obvious mural thickening, adjacent stranding, extraluminal gas or fluid collections. 1.5 cm calcified stone in the gallbladder lumen. No obvious mural thickening, adjacent fluid or edema. 3 mm nodular calcification in posterior interpolar region of left kidney. Collecting system nondilated. Scattered arterial mural calcifications. No obvious flow-limiting stenosis or occlusion. Darling catheter and small amount of gas in the lumen of urinary bladder. High attenuation foci in the dependent portion of the urinary bladder lumen. Remainder visualized abdominopelvic anatomy demonstrates no other obvious acute abnormality. Irregular pleural-based linear and patchy consolidative opacities, superimposed increased interstitial markings and dependent portions of both lung bases. Small disc marginal osteophytes and upper lumbar, lower thoracic spine. IMPRESSION: No overt evidence of acute abdominopelvic disease Nonvisualization of appendix Cholelithiasis. No evidence of acute cholecystitis. Nonobstructive left nephrolithiasis. High attenuation and urinary bladder lumen--excreted contrast versus stones Gas and urinary bladder lumen likely secondary to presence of Darling catheter. Cystitis with gas-forming organism not excludable. Correlate clinically. Pulmonary bibasal subsegmental atelectasis Mild degenerative spondylosis
--- NOTE | 2016-09-01 14:10 | GI Progress Note ---
Assessment/Plan Problems: (1) FTT (failure to thrive) in adult ICD Codes: R62.7 - Adult failure to thrive SNOMED: 419224014 (2) Elevated LFTs ICD Codes: R94.5 - Abnormal results of liver function studies SNOMED: 421235060 (3) Dementia ICD Codes: F03.90 - Unspecified dementia without behavioral disturbance SNOMED: 50373242 (4) Altered level of consciousness ICD Codes: R40.4 - Transient alteration of awareness SNOMED: 2924802 Status: unchanged Status Narrative Discussed with Dr. Nation. Assessment/Plan abdominal U/S reviewed APCT reviewed >> No overt evidence of acute abdominopelvic disease. Nonvisualization of appendix. Cholelithiasis. No evidence of acute cholecystitis. PEG refused by family at this time push po, ate 30% lunch today abx fu labs fu LFTS The patient was seen and examined at bedside and all new and available data was reviewed in the patients chart. I agree with the above findings, impression and plan. (Patient seen earlier today. Signature stamp does not reflect patient encounter time.). -Isreal Nation MD Subjective Subjective limited Objective Last 24 Hour Vital Signs Date Time Temp Pulse Resp B/P Pulse Ox O2 Delivery O2 Flow Rate FiO2 09/01/16 12:00 97.0 99 20 116/64 93 Room Air 09/01/16 12:00 97.0 99 18 116/64 94 Room Air 09/01/16 08:45 81 134/60 09/01/16 08:00 98.4 76 18 141/62 96 Room Air 09/01/16 07:15 81 20 Room Air 09/01/16 05:56 98.2 09/01/16 04:00 101.1 100 20 134/60 93 Room Air 09/01/16 00:07 101.7 91 18 116/66 94 Room Air 08/31/16 20:00 100.9 99 19 134/67 97 Room Air 08/31/16 19:07 98 20 Room Air 21 08/31/16 16:00 97.9 103 20 138/59 96 Room Air Intake and Output 08/31/16 09/01/16 19:00 07:00 Intake Total 500 ml 520 ml Output Total 700 ml 1000 ml Balance -200 ml -480 ml Intake Oral 450 ml 120 ml IV Total 50 ml 400 ml Output Urine Total 700 ml 1000 ml # Voids 1 # Bowel Movements 1 Laboratory Tests Test 09/01/16 04:35 White Blood Count 11.7 K/UL (4.8-10.8) H Red Blood Count 3.28 M/UL (4.20-5.40) L Hemoglobin 10.7 G/DL (12.0-16.0) L Hematocrit 31.5 % (37.0-47.0) L Mean Corpuscular Volume 96 FL (80-99) Mean Corpuscular Hemoglobin 32.7 PG (27.0-31.0) H Mean Corpuscular Hemoglobin Concent 34.0 G/DL (32.0-36.0) Red Cell Distribution Width 11.2 % (11.6-14.8) L Platelet Count 186 K/UL (150-450) Mean Platelet Volume 8.3 FL (6.5-10.1) Neutrophils (%) (Auto) 76.0 % (45.0-75.0) H Lymphocytes (%) (Auto) 17.6 % (20.0-45.0) L Monocytes (%) (Auto) 5.6 % (1.0-10.0) Eosinophils (%) (Auto) 0.4 % (0.0-3.0) Basophils (%) (Auto) 0.4 % (0.0-2.0) Sodium Level 146 mEQ/L (135-145) H Potassium Level 4.2 mEQ/L (3.4-4.9) Chloride Level 108 mEQ/L (98-107) H Carbon Dioxide Level 24 mEQ/L (20-30) Anion Gap 14 (5-15) Blood Urea Nitrogen 13 mg/dL (7-23) Creatinine 0.6 mg/dL (0.5-0.9) Estimat Glomerular Filtration Rate > 60 mL/min (>60) Glucose Level 105 mg/dL (74-106) Calcium Level 8.5 mg/dL (8.6-10.2) L Total Bilirubin 0.6 mg/dL (0.0-1.2) Aspartate Amino Transf (AST/SGOT) 240 U/L (5-40) H Alanine Aminotransferase (ALT/SGPT) 242 U/L (3-33) H Alkaline Phosphatase 53 U/L (35-104) Total Protein 5.7 g/dL (6.6-8.7) L Albumin 2.9 g/dL (3.5-5.2) L Globulin 2.8 g/dL Albumin/Globulin Ratio 1.0 (1.0-2.7) Height (Feet): 5 Height (Inches): 5.00 Weight (Pounds): 150 General Appearance: no apparent distress Cardiovascular: normal rate Respiratory/Chest: normal breath sounds Abdominal Exam: normal bowel sounds, non tender, soft Olesya Paula NRhoda Sep 01, 2016 14:10 ISREAL NATION Sep 02, 2016 10:03
--- NOTE | 2016-09-01 15:51 | Pulmonology Progress Note ---
Assessment/Plan Problems: (1) Severe sepsis (2) Altered level of consciousness (3) COPD (chronic obstructive pulmonary disease) (4) Dementia Assessment/Plan on Merepenem check electrolytes check cultures. all negative so far wbc still high, still fevers still febrile, cultures negative, CXR negative, urine negative HIDA scan can not be done, CT abd/pelvis was negative Subjective Interval Events: opens eyes Allergies: Coded Allergies: NIACIN (Verified Allergy, Unknown, 08/26/16) Objective Last 24 Hour Vital Signs Date Time Temp Pulse Resp B/P Pulse Ox O2 Delivery O2 Flow Rate FiO2 09/01/16 12:00 97.0 99 20 116/64 93 Room Air 09/01/16 12:00 97.0 99 18 116/64 94 Room Air 09/01/16 08:45 81 134/60 09/01/16 08:00 98.4 76 18 141/62 96 Room Air 09/01/16 07:15 81 20 Room Air 21 09/01/16 05:56 98.2 09/01/16 04:00 101.1 100 20 134/60 93 Room Air 09/01/16 00:07 101.7 91 18 116/66 94 Room Air 08/31/16 20:00 100.9 99 19 134/67 97 Room Air 08/31/16 19:07 98 20 Room Air 21 08/31/16 16:00 97.9 103 20 138/59 96 Room Air Intake and Output 08/31/16 09/01/16 19:00 07:00 Intake Total 500 ml 520 ml Output Total 700 ml 1000 ml Balance -200 ml -480 ml Intake Oral 450 ml 120 ml IV Total 50 ml 400 ml Output Urine Total 700 ml 1000 ml # Voids 1 # Bowel Movements 1 General Appearance: cachetic HEENT: normocephalic, atraumatic Respiratory/Chest: chest wall non-tender, normal breath sounds Cardiovascular: normal peripheral pulses, normal rate Abdomen: normal bowel sounds, soft, non tender Extremities: no cyanosis Skin: no rash Laboratory Tests 09/01/16 04:35: White Blood Count 11.7H, Red Blood Count 3.28L, Hemoglobin 10.7L, Hematocrit 31.5L, Mean Corpuscular Volume 96, Mean Corpuscular Hemoglobin 32.7H, Mean Corpuscular Hemoglobin Concent 34.0, Red Cell Distribution Width 11.2L, Platelet Count 186, Mean Platelet Volume 8.3, Neutrophils (%) (Auto) 76.0H, Lymphocytes (%) (Auto) 17.6L, Monocytes (%) (Auto) 5.6, Eosinophils (%) (Auto) 0.4, Basophils (%) (Auto) 0.4, Sodium Level 146H, Potassium Level 4.2, Chloride Level 108H, Carbon Dioxide Level 24, Anion Gap 14, Blood Urea Nitrogen 13, Creatinine 0.6, Estimat Glomerular Filtration Rate > 60, Glucose Level 105, Calcium Level 8.5L, Total Bilirubin 0.6, Aspartate Amino Transf (AST/SGOT) 240H , Alanine Aminotransferase (ALT/SGPT) 242H, Alkaline Phosphatase 53, Total Protein 5.7L, Albumin 2.9L, Globulin 2.8, Albumin/Globulin Ratio 1.0 Current Medications Medications (Trade) Dose Ordered Sig/Mariluz Route PRN Reason Start Time Stop Time Status Last Admin Dose Admin Acetaminophen (Tylenol) 650 mg Q4H PRN RECTAL Prn Headache/Temp > 101 08/30/16 17:30 09/29/16 17:29 09/01/16 05:18 Albuterol/ Ipratropium (DuoNeb 0.5-3(2.5)mg/3ml) 3 ml Q4H PRN HHN Shortness of Breath 08/30/16 17:30 09/04/16 17:29 Amlodipine Besylate (Norvasc) 10 mg DAILY ORAL 08/31/16 09:00 09/30/16 08:59 09/01/16 08:45 Heparin Sodium (Porcine) (Heparin 5000 units/ml) 5,000 units EVERY 12 HOURS SUBQ 08/30/16 21:00 09/29/16 20:59 09/01/16 08:56 Meropenem 1 gm/ Sodium Chloride 110 ml @ 220 mls/hr Q8HR IVPB 08/30/16 22:00 09/04/16 21:59 09/01/16 14:08 Nitroglycerin (Ntg) 0.4 mg Q5M PRN SL Prn Chest Pain 08/30/16 17:30 09/29/16 17:29 Olanzapine (ZyPREXA) 2.5 mg BEDTIME ORAL 08/30/16 21:00 09/29/16 20:59 08/31/16 20:39 Ondansetron HCl (Zofran) 4 mg Q6H PRN IVP Nausea & Vomiting 08/30/16 17:30 09/29/16 17:29 Polyethylene Glycol (Miralax) 17 gm DAILYPRN PRN ORAL Constipation 08/30/16 17:45 09/29/16 17:44 Potassium Chloride 40 meq/ Dextrose 1,020 ml @ 50 mls/hr [id number] IV 08/30/16 18:30 09/29/16 18:29 09/01/16 11:38 Promethazine HCl/ Codeine (Phenergan with Codeine) 5 ml Q4H PRN ORAL For Cough 08/30/16 17:30 09/29/16 17:29 Temazepam (Restoril) 15 mg HSPRN PRN ORAL Insomnia 08/30/16 21:00 09/06/16 20:59 Vancomycin HCl 1 ea 1 ea DAILY PRN MISC Per rx protocol 08/30/16 17:30 09/29/16 17:29 Vancomycin HCl/ Dextrose (Vancomycin/D5W) 275 ml @ 183.333 mls/hr Q12H IVPB 08/30/16 18:45 09/04/16 18:44 09/01/16 05:58 CHERYL CHRISTIAN Sep 01, 2016 15:51
--- NOTE | 2016-09-01 16:07 | Diagnostic Imaging Report ---
Indications: Dysphagia Technique: Multiphasic barium dysphagia study was performed under fluoroscopic control with Eliz Olivo speech pathologist. Cinegraphic images were obtained. Total fluoroscopy time: 280.1 sec Dose-area product: 0.34 mGy-m2 Findings: Comparison: None Oral and pharyngeal phases of swallowing demonstrate multiple mechanical abnormalities, as enumerated on speech pathology evaluation form. The patient demonstrates deep laryngeal penetration of thin liquid barium without aspiration, not ejected; trace superficial laryngeal penetration of nectar thickness barium without aspiration, ejected. There is moderate barium coating of pharyngeal structures after swallowing. Esophageal phase of swallowing demonstrates barium pooling with retrograde propagation through the pharyngeal esophageal segment. IMPRESSION: Abnormal oropharyngeal mechanics with deep laryngeal penetration of thin liquid barium and superficial laryngeal penetration of nectar thickness barium, both without aspiration Moderate post swallow pharyngeal residue Esophageal dysmotility with reversed peristalsis as described. Recommendation per speech pathology evaluation form.
[2016-09-01] MEDS: ALPRAZolam 0.25mg tab ORAL PRN (17:45)
[2016-09-01] MEDS: OLANZapine 2.5mg tab ORAL SCH (21:18)
[2016-09-02] VITALS: BP 130/70
[2016-09-02 04:04] VITALS: BP 145/70
[2016-09-02] MEDS: Meropenem 1 GM in NS 110 ML IVPB SCH ×3 (05:01→21:18)
[2016-09-02] MEDS: Vancomycin 1.25 GM in D5W 275 ML IVPB SCH ×2 (05:51→17:55)
[2016-09-02 07:16] LABS: BASOPHILS % (AUTO) 0.4 % (0.0-2.0); EOSINOPHILS % (AUTO) 0.4 % (0.0-3.0); MEAN CORPUSCULAR HEMOGLOBIN 31.9 PG (27.0-31.0); MEAN CORPUSCULAR HGB CONC 33.3 G/DL (32.0-36.0); MEAN CORPUSCULAR VOLUME 96 FL (80-99); MONOCYTES % (AUTO) 6.8 % (1.0-10.0); NEUTROPHILS % (AUTO) 81.4 % (45.0-75.0); PLATELET COUNT 235 K/UL (150-450); RED BLOOD COUNT 3.58 M/UL (4.20-5.40)
[2016-09-02 08:00] VITALS: BP 137/75
[2016-09-02] MEDS: ALPRAZolam 0.25mg tab ORAL PRN ×2 (08:14→17:55)
[2016-09-02] MEDS: Heparin 5000 units/ml inj SUBQ SCH ×2 (08:15→21:18)
[2016-09-02 08:30] LABS: ALANINE AMINOTRANSFERASE 203 U/L (3-33); ANION GAP 14 (5-15); ASPARTATE AMINO TRANSFERASE 120 U/L (5-40); CALCIUM 8.4 mg/dL (8.6-10.2); CARBON DIOXIDE 24 mEQ/L (20-30); CHLORIDE 101 mEQ/L (98-107); CREATININE 0.5 mg/dL (0.5-0.9); GLOMERULAR FILTRATION RATE > 60 mL/min (>60); HEMOLYSIS 8; POTASSIUM 4.2 mEQ/L (3.4-4.9); SODIUM 139 mEQ/L (135-145); TOTAL PROTEIN 5.8 g/dL (6.6-8.7)
--- NOTE | 2016-09-02 11:02 | GI Progress Note ---
Assessment/Plan Problems: (1) FTT (failure to thrive) in adult ICD Codes: R62.7 - Adult failure to thrive SNOMED: 843458047 (2) Elevated LFTs ICD Codes: R94.5 - Abnormal results of liver function studies SNOMED: 481855654 (3) Dementia ICD Codes: F03.90 - Unspecified dementia without behavioral disturbance SNOMED: 77720591 (4) Altered level of consciousness ICD Codes: R40.4 - Transient alteration of awareness SNOMED: 2822308 Status: doing well, stable Status Narrative Discussed with Dr. Nation. Assessment/Plan abdominal U/S reviewed APCT reviewed >> No overt evidence of acute abdominopelvic disease. Nonvisualization of appendix. Cholelithiasis. No evidence of acute cholecystitis. ok for DC per GI standpoint PEG refused by family at this time push po, greater than 50% per RN report abx fu labs fu LFTS Subjective Subjective limited Objective Last 24 Hour Vital Signs Date Time Temp Pulse Resp B/P Pulse Ox O2 Delivery O2 Flow Rate FiO2 09/02/16 08:14 87 145/70 09/02/16 08:00 98.1 87 20 137/75 98 Room Air 09/02/16 07:57 87 18 Room Air 21 09/02/16 04:04 99.0 86 20 145/70 98 Room Air 09/02/16 00:00 100.2 90 19 130/70 97 Room Air 09/01/16 20:20 96.6 92 18 133/66 98 Room Air 09/01/16 19:28 93 18 Room Air 21 09/01/16 16:32 106 20 122/91 96 09/01/16 15:58 97.5 114 21 141/100 93 Room Air 09/01/16 12:00 97.0 99 20 116/64 93 Room Air 09/01/16 12:00 97.0 99 18 116/64 94 Room Air Intake and Output 09/01/16 09/02/16 19:00 07:00 Intake Total 320 ml Output Total 1200 ml Balance -880 ml Intake Oral 320 ml Output Urine Total 1200 ml Laboratory Tests Test 09/02/16 06:10 White Blood Count 15.0 K/UL (4.8-10.8) H Red Blood Count 3.58 M/UL (4.20-5.40) L Hemoglobin 11.4 G/DL (12.0-16.0) L Hematocrit 34.3 % (37.0-47.0) L Mean Corpuscular Volume 96 FL (80-99) Mean Corpuscular Hemoglobin 31.9 PG (27.0-31.0) H Mean Corpuscular Hemoglobin Concent 33.3 G/DL (32.0-36.0) Red Cell Distribution Width 11.0 % (11.6-14.8) L Platelet Count 235 K/UL (150-450) Mean Platelet Volume 8.0 FL (6.5-10.1) Neutrophils (%) (Auto) 81.4 % (45.0-75.0) H Lymphocytes (%) (Auto) 11.0 % (20.0-45.0) L Monocytes (%) (Auto) 6.8 % (1.0-10.0) Eosinophils (%) (Auto) 0.4 % (0.0-3.0) Basophils (%) (Auto) 0.4 % (0.0-2.0) Sodium Level 139 mEQ/L (135-145) Potassium Level 4.2 mEQ/L (3.4-4.9) Chloride Level 101 mEQ/L (98-107) Carbon Dioxide Level 24 mEQ/L (20-30) Anion Gap 14 (5-15) Blood Urea Nitrogen 11 mg/dL (7-23) Creatinine 0.5 mg/dL (0.5-0.9) Estimat Glomerular Filtration Rate > 60 mL/min (>60) Glucose Level 125 mg/dL (74-106) H Calcium Level 8.4 mg/dL (8.6-10.2) L Total Bilirubin 0.5 mg/dL (0.0-1.2) Aspartate Amino Transf (AST/SGOT) 120 U/L (5-40) H Alanine Aminotransferase (ALT/SGPT) 203 U/L (3-33) H Alkaline Phosphatase 65 U/L (35-104) Total Protein 5.8 g/dL (6.6-8.7) L Albumin 3.0 g/dL (3.5-5.2) L Globulin 2.8 g/dL Albumin/Globulin Ratio 1.0 (1.0-2.7) Height (Feet): 5 Height (Inches): 5.00 Weight (Pounds): 150 General Appearance: no apparent distress, alert Cardiovascular: normal rate Respiratory/Chest: normal breath sounds, no respiratory distress Abdominal Exam: normal bowel sounds, non tender, soft Olesya Paula N.P. Sep 02, 2016 11:02
[2016-09-02 12:00] VITALS: BP 134/62
[2016-09-02 16:14] VITALS: BP 139/56
[2016-09-02 20:00] VITALS: BP 135/70
[2016-09-02] MEDS: OLANZapine 2.5mg tab ORAL SCH (21:17)
--- NOTE | 2016-09-02 22:10 | Pulmonology Progress Note ---
Assessment/Plan Problems: (1) Severe sepsis (2) Altered level of consciousness (3) COPD (chronic obstructive pulmonary disease) (4) Dementia Assessment/Plan on Merepenem check electrolytes check cultures. all negative so far wbc still high, still fevers still febrile, cultures negative, CXR negative, urine negative HIDA scan can not be done, CT abd/pelvis was negative Subjective ROS Limited/Unobtainable: Yes Allergies: Coded Allergies: NIACIN (Verified Allergy, Unknown, 08/26/16) Objective Last 24 Hour Vital Signs Date Time Temp Pulse Resp B/P Pulse Ox O2 Delivery O2 Flow Rate FiO2 09/02/16 20:48 90 20 Room Air 21 09/02/16 20:00 97.7 95 16 135/70 98 Room Air 09/02/16 16:14 98.2 90 20 139/56 93 Room Air 09/02/16 12:00 97.0 86 17 134/62 95 Room Air 09/02/16 08:14 87 145/70 09/02/16 08:00 98.1 87 20 137/75 98 Room Air 09/02/16 07:57 87 18 Room Air 21 09/02/16 04:04 99.0 86 20 145/70 98 Room Air 09/02/16 00:00 100.2 90 19 130/70 97 Room Air Intake and Output 09/01/16 09/02/16 19:00 07:00 Intake Total 320 ml Output Total 1200 ml Balance -880 ml Intake Oral 320 ml Output Urine Total 1200 ml General Appearance: cachetic HEENT: normocephalic, atraumatic Respiratory/Chest: chest wall non-tender, lungs clear Cardiovascular: normal peripheral pulses, normal rate Abdomen: normal bowel sounds, soft, non tender Extremities: no cyanosis Laboratory Tests 09/02/16 06:10: White Blood Count 15.0H, Red Blood Count 3.58L, Hemoglobin 11.4L, Hematocrit 34.3L, Mean Corpuscular Volume 96, Mean Corpuscular Hemoglobin 31.9H, Mean Corpuscular Hemoglobin Concent 33.3, Red Cell Distribution Width 11.0L, Platelet Count 235, Mean Platelet Volume 8.0, Neutrophils (%) (Auto) 81.4H, Lymphocytes (%) (Auto) 11.0L, Monocytes (%) (Auto) 6.8, Eosinophils (%) (Auto) 0.4, Basophils (%) (Auto) 0.4, Sodium Level 139, Potassium Level 4.2, Chloride Level 101, Carbon Dioxide Level 24, Anion Gap 14, Blood Urea Nitrogen 11, Creatinine 0.5, Estimat Glomerular Filtration Rate > 60, Glucose Level 125H, Calcium Level 8.4L, Total Bilirubin 0.5, Aspartate Amino Transf (AST/SGOT) 120H , Alanine Aminotransferase (ALT/SGPT) 203H, Alkaline Phosphatase 65, Total Protein 5.8L, Albumin 3.0L, Globulin 2.8, Albumin/Globulin Ratio 1.0 Current Medications Medications (Trade) Dose Ordered Sig/Mariluz Route PRN Reason Start Time Stop Time Status Last Admin Dose Admin Acetaminophen (Tylenol) 650 mg Q4H PRN RECTAL Prn Headache/Temp > 101 08/30/16 17:30 09/29/16 17:29 09/01/16 05:18 Albuterol/ Ipratropium (DuoNeb 0.5-3(2.5)mg/3ml) 3 ml Q4H PRN HHN Shortness of Breath 08/30/16 17:30 09/04/16 17:29 Alprazolam (Xanax) 0.25 mg THREE TIMES A DAY PRN ORAL shaking 09/01/16 16:00 09/08/16 15:59 09/02/16 17:55 Amlodipine Besylate (Norvasc) 10 mg DAILY ORAL 08/31/16 09:00 09/30/16 08:59 09/02/16 08:14 Heparin Sodium (Porcine) (Heparin 5000 units/ml) 5,000 units EVERY 12 HOURS SUBQ 08/30/16 21:00 09/29/16 20:59 09/02/16 21:18 Meropenem 1 gm/ Sodium Chloride 110 ml @ 220 mls/hr Q8HR IVPB 08/30/16 22:00 09/04/16 21:59 09/02/16 21:18 Nitroglycerin (Ntg) 0.4 mg Q5M PRN SL Prn Chest Pain 08/30/16 17:30 09/29/16 17:29 Olanzapine (ZyPREXA) 2.5 mg BEDTIME ORAL 08/30/16 21:00 09/29/16 20:59 09/02/16 21:17 Ondansetron HCl (Zofran) 4 mg Q6H PRN IVP Nausea & Vomiting 08/30/16 17:30 09/29/16 17:29 Polyethylene Glycol (Miralax) 17 gm DAILYPRN PRN ORAL Constipation 08/30/16 17:45 09/29/16 17:44 Promethazine HCl/ Codeine (Phenergan with Codeine) 5 ml Q4H PRN ORAL For Cough 08/30/16 17:30 09/29/16 17:29 Temazepam (Restoril) 15 mg HSPRN PRN ORAL Insomnia 08/30/16 21:00 09/06/16 20:59 Vancomycin HCl 1 ea 1 ea DAILY PRN MISC Per rx protocol 08/30/16 17:30 09/29/16 17:29 Vancomycin HCl/ Dextrose (Vancomycin/D5W) 275 ml @ 183.333 mls/hr Q12H IVPB 08/30/16 18:45 09/04/16 18:44 09/02/16 17:55 CHERYL CHRISTIAN Sep 02, 2016 22:10
[2016-09-03] VITALS: BP 140/69
[2016-09-03 04:00] VITALS: BP 130/62
[2016-09-03] MEDS: Meropenem 1 GM in NS 110 ML IVPB SCH ×3 (06:30→22:38)
[2016-09-03] MEDS: ALPRAZolam 0.25mg tab ORAL PRN (06:32)
[2016-09-03 07:06] LABS: ANION GAP 17 (5-15); CALCIUM 8.4 mg/dL (8.6-10.2); CARBON DIOXIDE 22 mEQ/L (20-30); CHLORIDE 99 mEQ/L (98-107); CREATININE 0.5 mg/dL (0.5-0.9); GLOMERULAR FILTRATION RATE > 60 mL/min (>60); HEMOLYSIS 5; POTASSIUM 4.2 mEQ/L (3.4-4.9); SODIUM 138 mEQ/L (135-145)
[2016-09-03] MEDS: Vancomycin 1.25 GM in D5W 275 ML IVPB SCH ×2 (07:08→18:54)
[2016-09-03 07:16] LABS: BASOPHILS % (AUTO) 0.5 % (0.0-2.0); EOSINOPHILS % (AUTO) 0.5 % (0.0-3.0); LYMPHOCYTES % (AUTO) 14.3 % (20.0-45.0); MEAN CORPUSCULAR HEMOGLOBIN 34.1 PG (27.0-31.0); MEAN CORPUSCULAR HGB CONC 35.5 G/DL (32.0-36.0); MEAN CORPUSCULAR VOLUME 96 FL (80-99); MEAN PLATELET VOLUME 7.2 FL (6.5-10.1); NEUTROPHILS % (AUTO) 76.7 % (45.0-75.0); PLATELET COUNT 183 K/UL (150-450); RED BLOOD COUNT 3.23 M/UL (4.20-5.40); RED CELL DISTRIBUTION WIDTH 10.8 % (11.6-14.8); WHITE BLOOD COUNT 11.7 K/UL (4.8-10.8)
[2016-09-03 07:51] VITALS: BP 138/68
[2016-09-03] MEDS: Heparin 5000 units/ml inj SUBQ SCH ×2 (08:49→22:42)
--- NOTE | 2016-09-03 11:03 | GI Progress Note ---
Assessment/Plan Problems: (1) FTT (failure to thrive) in adult ICD Codes: R62.7 - Adult failure to thrive SNOMED: 236055918 (2) Elevated LFTs ICD Codes: R94.5 - Abnormal results of liver function studies SNOMED: 371761867 (3) Dementia ICD Codes: F03.90 - Unspecified dementia without behavioral disturbance SNOMED: 40481252 (4) Altered level of consciousness ICD Codes: R40.4 - Transient alteration of awareness SNOMED: 7443549 Status: stable Status Narrative Discussed with Dr. Nation. Assessment/Plan abdominal U/S reviewed APCT reviewed >> No overt evidence of acute abdominopelvic disease. Nonvisualization of appendix. Cholelithiasis. No evidence of acute cholecystitis. ok for DC per GI standpoint PEG refused by family at this time push po, greater than 50% per RN report abx fu labs fu LFTS Subjective Subjective limited Objective Last 24 Hour Vital Signs Date Time Temp Pulse Resp B/P Pulse Ox O2 Delivery O2 Flow Rate FiO2 09/03/16 08:48 95 138/68 09/03/16 07:51 98.3 95 19 138/68 96 Room Air 09/03/16 07:13 96 20 Room Air 21 09/03/16 04:00 97.0 91 16 130/62 98 Room Air 09/03/16 00:00 97.9 97 18 140/69 98 Room Air 09/02/16 20:48 90 20 Room Air 21 09/02/16 20:00 97.7 95 16 135/70 98 Room Air 09/02/16 16:14 98.2 90 20 139/56 93 Room Air 09/02/16 12:00 97.0 86 17 134/62 95 Room Air Intake and Output 09/02/16 09/03/16 19:00 07:00 Intake Total 480 ml 120 ml Output Total 1000 ml 1000 ml Balance -520 ml -880 ml Intake Oral 480 ml 120 ml Output Urine Total 1000 ml 1000 ml # Bowel Movements 2 Laboratory Tests Test 09/03/16 05:35 White Blood Count 11.7 K/UL (4.8-10.8) H Red Blood Count 3.23 M/UL (4.20-5.40) L Hemoglobin 11.0 G/DL (12.0-16.0) L Hematocrit 31.0 % (37.0-47.0) L Mean Corpuscular Volume 96 FL (80-99) Mean Corpuscular Hemoglobin 34.1 PG (27.0-31.0) H Mean Corpuscular Hemoglobin Concent 35.5 G/DL (32.0-36.0) Red Cell Distribution Width 10.8 % (11.6-14.8) L Platelet Count 183 K/UL (150-450) Mean Platelet Volume 7.2 FL (6.5-10.1) Neutrophils (%) (Auto) 76.7 % (45.0-75.0) H Lymphocytes (%) (Auto) 14.3 % (20.0-45.0) L Monocytes (%) (Auto) 8.0 % (1.0-10.0) Eosinophils (%) (Auto) 0.5 % (0.0-3.0) Basophils (%) (Auto) 0.5 % (0.0-2.0) Sodium Level 138 mEQ/L (135-145) Potassium Level 4.2 mEQ/L (3.4-4.9) Chloride Level 99 mEQ/L (98-107) Carbon Dioxide Level 22 mEQ/L (20-30) Anion Gap 17 (5-15) H Blood Urea Nitrogen 11 mg/dL (7-23) Creatinine 0.5 mg/dL (0.5-0.9) Estimat Glomerular Filtration Rate > 60 mL/min (>60) Glucose Level 103 mg/dL (74-106) Calcium Level 8.4 mg/dL (8.6-10.2) L Height (Feet): 5 Height (Inches): 5.00 Weight (Pounds): 150 General Appearance: no apparent distress, alert Cardiovascular: normal rate Respiratory/Chest: normal breath sounds, no respiratory distress Abdominal Exam: normal bowel sounds, non tender, soft Oleysa Paula N.P. Sep 03, 2016 11:03
--- NOTE | 2016-09-03 11:46 | Infectious Diseases Prog Note ---
Assessment/Plan Assessment/Plan H ASSESSMENT: 71 y/o female with: // Elevated LFTs / improving GI following - US: Mildly dilated common bile duct and central intrahepatic ducts. While possibly on the basis of senescent change downstream obstruction not completely excludable. // Fever - improved Cultures NGTD CT : no abscess // Leukocytosis - improving // Lactic acidosis - resolved // Negative influenza // Sepsis , SP // Acute on chronic encephalopathy - SP LP, no evidence of meningitis/encephalitis. VDRL NR - CT Head: Chronic and age-related changes, multiple old infarcts. Negative for acute intracranial bleed or mass effect - baseline advanced dementia // // Swallow eval : no Asp // Mild right hydronephrosis // NH resident // No ABX allergies // DNR PLAN: - continue empiric IV vancomycin d# . cont meropenem d# , upon DC will change to Invanz and Vancox 1 wk 08/30 SP cefepime d# 3 - monitor CBC, temperatures - monitor BMP - possible PEG - f/u GI eval Subjective Allergies: Coded Allergies: NIACIN (Verified Allergy, Unknown, 08/26/16) Subjective afebrile Objective Vital Signs Last 24 Hour Vital Signs Date Time Temp Pulse Resp B/P Pulse Ox O2 Delivery O2 Flow Rate FiO2 09/03/16 08:48 95 138/68 09/03/16 07:51 98.3 95 19 138/68 96 Room Air 09/03/16 07:13 96 20 Room Air 21 09/03/16 04:00 97.0 91 16 130/62 98 Room Air 09/03/16 00:00 97.9 97 18 140/69 98 Room Air 09/02/16 20:48 90 20 Room Air 21 09/02/16 20:00 97.7 95 16 135/70 98 Room Air 09/02/16 16:14 98.2 90 20 139/56 93 Room Air 09/02/16 12:00 97.0 86 17 134/62 95 Room Air Height (Feet): 5 Height (Inches): 5.00 Weight (Pounds): 150 HEENT: anicteric Respiratory/Chest: normal breath sounds Cardiovascular: regularly irregular Abdomen: soft, non tender Laboratory Tests Test 09/03/16 05:35 White Blood Count 11.7 K/UL (4.8-10.8) H Red Blood Count 3.23 M/UL (4.20-5.40) L Hemoglobin 11.0 G/DL (12.0-16.0) L Hematocrit 31.0 % (37.0-47.0) L Mean Corpuscular Volume 96 FL (80-99) Mean Corpuscular Hemoglobin 34.1 PG (27.0-31.0) H Mean Corpuscular Hemoglobin Concent 35.5 G/DL (32.0-36.0) Red Cell Distribution Width 10.8 % (11.6-14.8) L Platelet Count 183 K/UL (150-450) Mean Platelet Volume 7.2 FL (6.5-10.1) Neutrophils (%) (Auto) 76.7 % (45.0-75.0) H Lymphocytes (%) (Auto) 14.3 % (20.0-45.0) L Monocytes (%) (Auto) 8.0 % (1.0-10.0) Eosinophils (%) (Auto) 0.5 % (0.0-3.0) Basophils (%) (Auto) 0.5 % (0.0-2.0) Sodium Level 138 mEQ/L (135-145) Potassium Level 4.2 mEQ/L (3.4-4.9) Chloride Level 99 mEQ/L (98-107) Carbon Dioxide Level 22 mEQ/L (20-30) Anion Gap 17 (5-15) H Blood Urea Nitrogen 11 mg/dL (7-23) Creatinine 0.5 mg/dL (0.5-0.9) Estimat Glomerular Filtration Rate > 60 mL/min (>60) Glucose Level 103 mg/dL (74-106) Calcium Level 8.4 mg/dL (8.6-10.2) L Current Medications Medications (Trade) Dose Ordered Sig/Mariluz Route PRN Reason Start Time Stop Time Status Last Admin Dose Admin Acetaminophen (Tylenol) 650 mg Q4H PRN RECTAL Prn Headache/Temp > 101 08/30/16 17:30 09/29/16 17:29 09/01/16 05:18 Albuterol/ Ipratropium (DuoNeb 0.5-3(2.5)mg/3ml) 3 ml Q4H PRN HHN Shortness of Breath 08/30/16 17:30 09/04/16 17:29 Alprazolam (Xanax) 0.25 mg THREE TIMES A DAY PRN ORAL shaking 09/01/16 16:00 09/08/16 15:59 09/03/16 06:32 Amlodipine Besylate (Norvasc) 10 mg DAILY ORAL 08/31/16 09:00 09/30/16 08:59 09/03/16 08:48 Heparin Sodium (Porcine) (Heparin 5000 units/ml) 5,000 units EVERY 12 HOURS SUBQ 08/30/16 21:00 09/29/16 20:59 09/03/16 08:49 Meropenem 1 gm/ Sodium Chloride 110 ml @ 220 mls/hr Q8HR IVPB 08/30/16 22:00 09/04/16 21:59 09/03/16 06:30 Nitroglycerin (Ntg) 0.4 mg Q5M PRN SL Prn Chest Pain 08/30/16 17:30 09/29/16 17:29 Olanzapine (ZyPREXA) 2.5 mg BEDTIME ORAL 08/30/16 21:00 09/29/16 20:59 09/02/16 21:17 Ondansetron HCl (Zofran) 4 mg Q6H PRN IVP Nausea & Vomiting 08/30/16 17:30 09/29/16 17:29 Polyethylene Glycol (Miralax) 17 gm DAILYPRN PRN ORAL Constipation 08/30/16 17:45 09/29/16 17:44 Promethazine HCl/ Codeine (Phenergan with Codeine) 5 ml Q4H PRN ORAL For Cough 08/30/16 17:30 09/29/16 17:29 Temazepam (Restoril) 15 mg HSPRN PRN ORAL Insomnia 08/30/16 21:00 09/06/16 20:59 Vancomycin HCl 1 ea 1 ea DAILY PRN MISC Per rx protocol 08/30/16 17:30 09/29/16 17:29 Vancomycin HCl/ Dextrose (Vancomycin/D5W) 275 ml @ 183.333 mls/hr Q12H IVPB 08/30/16 18:45 09/04/16 18:44 09/03/16 07:08 SAMREEN ORO M.D. Sep 03, 2016 11:46
[2016-09-03] MEDS ORDERED: VANCO 1 GR1 GM/250 M IV ×2 (11:48→12:01)
[2016-09-03] MEDS ORDERED: INVANZ1 G1 IM (12:01)
[2016-09-03 12:20] VITALS: BP 135/68
--- NOTE | 2016-09-03 16:00 | Pulmonology Progress Note ---
Assessment/Plan Problems: (1) Severe sepsis (2) Altered level of consciousness (3) COPD (chronic obstructive pulmonary disease) (4) Dementia Assessment/Plan on Merepenem check electrolytes check cultures. all negative so far cultures negative, CXR negative, urine negative dc planning to a contracted facility. Subjective ROS Limited/Unobtainable: Yes Allergies: Coded Allergies: NIACIN (Verified Allergy, Unknown, 08/26/16) Objective Last 24 Hour Vital Signs Date Time Temp Pulse Resp B/P Pulse Ox O2 Delivery O2 Flow Rate FiO2 09/03/16 12:20 98.1 84 19 135/68 96 Room Air 09/03/16 08:48 95 138/68 09/03/16 07:51 98.3 95 19 138/68 96 Room Air 09/03/16 07:13 96 20 Room Air 09/03/16 04:00 97.0 91 16 130/62 98 Room Air 09/03/16 00:00 97.9 97 18 140/69 98 Room Air 09/02/16 20:48 90 20 Room Air 21 09/02/16 20:00 97.7 95 16 135/70 98 Room Air 09/02/16 16:14 98.2 90 20 139/56 93 Room Air Intake and Output 09/02/16 09/03/16 19:00 07:00 Intake Total 480 ml 120 ml Output Total 1000 ml 1000 ml Balance -520 ml -880 ml Intake Oral 480 ml 120 ml Output Urine Total 1000 ml 1000 ml # Bowel Movements 2 Objective General Appearance: WD/WN HEENT: normocephalic Respiratory/Chest: chest wall non-tender, lungs clear Cardiovascular: normal peripheral pulses, normal rate Abdomen: normal bowel sounds, soft, non tender Extremities: no cyanosis, other Skin: no rash Laboratory Tests 09/03/16 05:35: White Blood Count 11.7H, Red Blood Count 3.23L, Hemoglobin 11.0L, Hematocrit 31.0L, Mean Corpuscular Volume 96, Mean Corpuscular Hemoglobin 34.1H, Mean Corpuscular Hemoglobin Concent 35.5, Red Cell Distribution Width 10.8L, Platelet Count 183, Mean Platelet Volume 7.2, Neutrophils (%) (Auto) 76.7H, Lymphocytes (%) (Auto) 14.3L, Monocytes (%) (Auto) 8.0, Eosinophils (%) (Auto) 0.5, Basophils (%) (Auto) 0.5, Sodium Level 138, Potassium Level 4.2, Chloride Level 99, Carbon Dioxide Level 22, Anion Gap 17H, Blood Urea Nitrogen 11, Creatinine 0.5, Estimat Glomerular Filtration Rate > 60, Glucose Level 103, Calcium Level 8.4L Current Medications Medications (Trade) Dose Ordered Sig/Mariluz Route PRN Reason Start Time Stop Time Status Last Admin Dose Admin Acetaminophen (Tylenol) 650 mg Q4H PRN RECTAL Prn Headache/Temp > 101 08/30/16 17:30 09/29/16 17:29 09/01/16 05:18 Albuterol/ Ipratropium (DuoNeb 0.5-3(2.5)mg/3ml) 3 ml Q4H PRN HHN Shortness of Breath 08/30/16 17:30 09/04/16 17:29 Alprazolam (Xanax) 0.25 mg THREE TIMES A DAY PRN ORAL shaking 09/01/16 16:00 09/08/16 15:59 09/03/16 06:32 Amlodipine Besylate (Norvasc) 10 mg DAILY ORAL 08/31/16 09:00 09/30/16 08:59 09/03/16 08:48 Heparin Sodium (Porcine) (Heparin 5000 units/ml) 5,000 units EVERY 12 HOURS SUBQ 08/30/16 21:00 09/29/16 20:59 09/03/16 08:49 Meropenem 1 gm/ Sodium Chloride 110 ml @ 220 mls/hr Q8HR IVPB 08/30/16 22:00 09/04/16 21:59 09/03/16 14:09 Nitroglycerin (Ntg) 0.4 mg Q5M PRN SL Prn Chest Pain 08/30/16 17:30 09/29/16 17:29 Olanzapine (ZyPREXA) 2.5 mg BEDTIME ORAL 08/30/16 21:00 09/29/16 20:59 09/02/16 21:17 Ondansetron HCl (Zofran) 4 mg Q6H PRN IVP Nausea & Vomiting 08/30/16 17:30 09/29/16 17:29 Polyethylene Glycol (Miralax) 17 gm DAILYPRN PRN ORAL Constipation 08/30/16 17:45 09/29/16 17:44 Promethazine HCl/ Codeine (Phenergan with Codeine) 5 ml Q4H PRN ORAL For Cough 08/30/16 17:30 09/29/16 17:29 Temazepam (Restoril) 15 mg HSPRN PRN ORAL Insomnia 08/30/16 21:00 09/06/16 20:59 Vancomycin HCl 1 ea 1 ea DAILY PRN MISC Per rx protocol 08/30/16 17:30 09/29/16 17:29 Vancomycin HCl/ Dextrose (Vancomycin/D5W) 275 ml @ 183.333 mls/hr Q12H IVPB 08/30/16 18:45 09/04/16 18:44 09/03/16 07:08 CHERYL CHRISTIAN Sep 03, 2016 16:00
[2016-09-03 16:15] VITALS: BP 117/60
--- NOTE | 2016-09-03 19:45 | Progress Note ---
DATE: 09/03/2016 SUBJECTIVE: The patient responding well to Zyprexa, still presenting waxing and waning consciousness, compliant. No agitation. No behavior issues. Has cognitive impairment. MENTAL STATUS EXAMINATION: The patient is calm, decreased episodes of agitation. Mood is neutral. During the evaluation, affect is flat. Congruent with mood. Thought process is concrete. Thought content, there is no suicidal or homicidal ideation. ASSESSMENT: Delirium, improving agitation. PLAN: 1. The patient will be continued with low dose of antipsychotics. 2. We will continue to follow and readjust the medication. Maninder Peter M.D. DR: Suresh JOB#: [id number] CC:
[2016-09-03 20:00] VITALS: BP 124/49
[2016-09-03] MEDS: OLANZapine 2.5mg tab ORAL SCH (22:38)
[2016-09-04] VITALS: BP 127/66
[2016-09-04 04:00] VITALS: BP 137/56
[2016-09-04] MEDS: Meropenem 1 GM in NS 110 ML IVPB SCH ×2 (06:01→14:28)
[2016-09-04] MEDS: Vancomycin 1.25 GM in D5W 275 ML IVPB SCH (06:01)
[2016-09-04 07:03] LABS: ANION GAP 18 (5-15); CALCIUM 8.6 mg/dL (8.6-10.2); CARBON DIOXIDE 22 mEQ/L (20-30); CHLORIDE 97 mEQ/L (98-107); CREATININE 0.5 mg/dL (0.5-0.9); GLOMERULAR FILTRATION RATE > 60 mL/min (>60); HEMOLYSIS 25; POTASSIUM 4.1 mEQ/L (3.4-4.9); SODIUM 137 mEQ/L (135-145)
[2016-09-04 07:16] LABS: BASOPHILS % (AUTO) 0.4 % (0.0-2.0); EOSINOPHILS % (AUTO) 0.2 % (0.0-3.0); MEAN CORPUSCULAR HEMOGLOBIN 33.3 PG (27.0-31.0); MEAN CORPUSCULAR HGB CONC 34.8 G/DL (32.0-36.0); MEAN CORPUSCULAR VOLUME 96 FL (80-99); MEAN PLATELET VOLUME 6.8 FL (6.5-10.1); MONOCYTES % (AUTO) 8.7 % (1.0-10.0); NEUTROPHILS % (AUTO) 80.7 % (45.0-75.0); PLATELET COUNT 182 K/UL (150-450); RED BLOOD COUNT 3.26 M/UL (4.20-5.40); RED CELL DISTRIBUTION WIDTH 10.8 % (11.6-14.8); WHITE BLOOD COUNT 12.4 K/UL (4.8-10.8)
--- NOTE | 2016-09-04 07:59 | Pulmonology Progress Note ---
Assessment/Plan Assessment/Plan ASSESSMENT sepsis rhabdo acute renal failure acute on chronic toxic metabolic encephalopathy lactic acidosis advanced senile dementia COPD cholelithiasis transaminitis e/lyte imbalance ( hyper Na, hypo K) - resolved dysphagia delirium hx of multiple CVA PLAN OF CARE MS floor abx, ID follows all cx UTD negative initial and fup CXR negative 02 HHN prn pulse ox stable on RA per ID upon dc need Vanco and Invanz CT head no acute IC pathology but c/w multiple old infarcts LP no evidence of meningitis, encephalitis VDRL negative Ck trending down renal parameters down to normal rhabdo likely due to dehydration neuro seen and evaluated per neuro acute encephalopathy likely 2 to underlying dementia with significant metabolic derangement on initial presentation psych seen and evaluated started on Zyprexa lytes stable after correction abdominal US with cholelithiasics, CT A/P - No overt evidence of acute abdominopelvic disease. Cholelithiasis. No evidence of acute cholecystitis. No abscess swallow eval reveal dysphagia, but no overt aspiration family refused G Tube placement per GI push po monitor LFT , LFT trending down DVT prophylaxis PT eval and Rx DNR status dc planning case discussed and evaluated by supervising physician Subjective Allergies: Coded Allergies: NIACIN (Verified Allergy, Unknown, 08/26/16) Subjective still with leukocytosis low grade fever last night and this morning Objective Last 24 Hour Vital Signs Date Time Temp Pulse Resp B/P Pulse Ox O2 Delivery O2 Flow Rate FiO2 09/04/16 04:00 99.1 109 20 137/56 96 Room Air 09/04/16 00:00 98.4 87 18 127/66 95 Room Air 09/03/16 20:00 99.8 104 20 124/49 96 Room Air 09/03/16 19:05 92 20 Room Air 21 09/03/16 16:15 97.7 89 20 117/60 97 Room Air 09/03/16 12:20 98.1 84 19 135/68 96 Room Air 09/03/16 08:48 95 138/68 09/03/16 07:51 98.3 95 19 138/68 96 Room Air Intake and Output 09/03/16 09/04/16 19:00 07:00 Intake Total 860 ml 90 ml Output Total 1050 ml 675 ml Balance -190 ml -585 ml Intake Oral 585 ml 90 ml IV Total 275 ml Output Urine Total 1050 ml 675 ml # Voids 3 General Appearance: no acute distress, other - chroncially ill c, bedridden, contracted female Respiratory/Chest: lungs clear Cardiovascular: normal peripheral pulses, normal rate, regular rhythm, no JVD Abdomen: normal bowel sounds, soft, non tender Genitourinary: other - [place] Extremities: other - contracted LE Neurologic/Psychiatric: abnormal gait - bedridden , other - open eyes, poorly responsive Musculoskeletal: atrophy - BLE, other - contracted LE Laboratory Tests 09/04/16 05:10: White Blood Count 12.4H, Red Blood Count 3.26L, Hemoglobin 10.9L, Hematocrit 31.3L, Mean Corpuscular Volume 96, Mean Corpuscular Hemoglobin 33.3H, Mean Corpuscular Hemoglobin Concent 34.8, Red Cell Distribution Width 10.8L, Platelet Count 182, Mean Platelet Volume 6.8, Neutrophils (%) (Auto) 80.7H, Lymphocytes (%) (Auto) 10.0L, Monocytes (%) (Auto) 8.7, Eosinophils (%) (Auto) 0.2, Basophils (%) (Auto) 0.4, Sodium Level 137, Potassium Level 4.1, Chloride Level 97L, Carbon Dioxide Level 22, Anion Gap 18H, Blood Urea Nitrogen 15, Creatinine 0.5, Estimat Glomerular Filtration Rate > 60, Glucose Level 105, Calcium Level 8.6, Total Creatine Kinase 510H Current Medications Medications (Trade) Dose Ordered Sig/Mariluz Route PRN Reason Start Time Stop Time Status Last Admin Dose Admin Acetaminophen (Tylenol) 650 mg Q4H PRN RECTAL Prn Headache/Temp > 101 08/30/16 17:30 09/29/16 17:29 09/01/16 05:18 Albuterol/ Ipratropium (DuoNeb 0.5-3(2.5)mg/3ml) 3 ml Q4H PRN HHN Shortness of Breath 08/30/16 17:30 09/04/16 17:29 Alprazolam (Xanax) 0.25 mg THREE TIMES A DAY PRN ORAL shaking 09/01/16 16:00 09/08/16 15:59 09/03/16 06:32 Amlodipine Besylate (Norvasc) 10 mg DAILY ORAL 08/31/16 09:00 09/30/16 08:59 09/03/16 08:48 Heparin Sodium (Porcine) (Heparin 5000 units/ml) 5,000 units EVERY 12 HOURS SUBQ 08/30/16 21:00 09/29/16 20:59 09/03/16 22:42 Meropenem 1 gm/ Sodium Chloride 110 ml @ 220 mls/hr Q8HR IVPB 08/30/16 22:00 09/10/16 21:59 09/04/16 06:01 Nitroglycerin (Ntg) 0.4 mg Q5M PRN SL Prn Chest Pain 08/30/16 17:30 09/29/16 17:29 Olanzapine (ZyPREXA) 2.5 mg BEDTIME ORAL 08/30/16 21:00 09/29/16 20:59 09/03/16 22:38 Ondansetron HCl (Zofran) 4 mg Q6H PRN IVP Nausea & Vomiting 08/30/16 17:30 09/29/16 17:29 Polyethylene Glycol (Miralax) 17 gm DAILYPRN PRN ORAL Constipation 08/30/16 17:45 09/29/16 17:44 Promethazine HCl/ Codeine (Phenergan with Codeine) 5 ml Q4H PRN ORAL For Cough 08/30/16 17:30 09/29/16 17:29 Temazepam (Restoril) 15 mg HSPRN PRN ORAL Insomnia 08/30/16 21:00 09/06/16 20:59 Vancomycin HCl 1 ea 1 ea DAILY PRN MISC Per rx protocol 08/30/16 17:30 09/29/16 17:29 Vancomycin HCl/ Dextrose (Vancomycin/D5W) 275 ml @ 183.333 mls/hr Q12H IVPB 08/30/16 18:45 09/10/16 18:44 09/04/16 06:01 Marcella Wang NP ([facility]) Sep 04, 2016 07:59
[2016-09-04 08:00] VITALS: BP 157/95
[2016-09-04] MEDS ORDERED: DuoNeb 0.5-3(2.5)mg/3ml neb HHN PRN (08:00)
[2016-09-04] MEDS: Heparin 5000 units/ml inj SUBQ SCH (08:31)
[2016-09-04] MEDS: Acetaminophen 650 MG SUPP RECTAL PRN (08:33)
--- NOTE | 2016-09-04 10:26 | GI Progress Note ---
Assessment/Plan Problems: (1) FTT (failure to thrive) in adult ICD Codes: R62.7 - Adult failure to thrive SNOMED: 002948974 (2) Elevated LFTs ICD Codes: R94.5 - Abnormal results of liver function studies SNOMED: 524574336 (3) Dementia ICD Codes: F03.90 - Unspecified dementia without behavioral disturbance SNOMED: 91843972 (4) Altered level of consciousness ICD Codes: R40.4 - Transient alteration of awareness SNOMED: 1956932 Status: doing well, stable Status Narrative Discussed with Dr. Nation. Assessment/Plan abdominal U/S reviewed APCT reviewed >> No overt evidence of acute abdominopelvic disease. Nonvisualization of appendix. Cholelithiasis. No evidence of acute cholecystitis. ok for DC per GI standpoint PEG refused by family at this time push po, greater than 50% per RN report abx fu labs fu LFTS Subjective Subjective limited Objective Last 24 Hour Vital Signs Date Time Temp Pulse Resp B/P Pulse Ox O2 Delivery O2 Flow Rate FiO2 09/04/16 09:30 100.9 09/04/16 09:03 100.9 09/04/16 08:33 115 157/95 09/04/16 08:00 100.4 115 20 157/95 94 Room Air 09/04/16 04:00 99.1 109 20 137/56 96 Room Air 09/04/16 00:00 98.4 87 18 127/66 95 Room Air 09/03/16 20:00 99.8 104 20 124/49 96 Room Air 09/03/16 19:05 92 20 Room Air 21 09/03/16 16:15 97.7 89 20 117/60 97 Room Air 09/03/16 12:20 98.1 84 19 135/68 96 Room Air Intake and Output 09/03/16 09/04/16 19:00 07:00 Intake Total 860 ml 200 ml Output Total 1050 ml 675 ml Balance -190 ml -475 ml Intake Oral 585 ml 90 ml IV Total 275 ml 110 ml Output Urine Total 1050 ml 675 ml # Voids 3 Laboratory Tests Test 09/04/16 05:10 White Blood Count 12.4 K/UL (4.8-10.8) H Red Blood Count 3.26 M/UL (4.20-5.40) L Hemoglobin 10.9 G/DL (12.0-16.0) L Hematocrit 31.3 % (37.0-47.0) L Mean Corpuscular Volume 96 FL (80-99) Mean Corpuscular Hemoglobin 33.3 PG (27.0-31.0) H Mean Corpuscular Hemoglobin Concent 34.8 G/DL (32.0-36.0) Red Cell Distribution Width 10.8 % (11.6-14.8) L Platelet Count 182 K/UL (150-450) Mean Platelet Volume 6.8 FL (6.5-10.1) Neutrophils (%) (Auto) 80.7 % (45.0-75.0) H Lymphocytes (%) (Auto) 10.0 % (20.0-45.0) L Monocytes (%) (Auto) 8.7 % (1.0-10.0) Eosinophils (%) (Auto) 0.2 % (0.0-3.0) Basophils (%) (Auto) 0.4 % (0.0-2.0) Sodium Level 137 mEQ/L (135-145) Potassium Level 4.1 mEQ/L (3.4-4.9) Chloride Level 97 mEQ/L (98-107) L Carbon Dioxide Level 22 mEQ/L (20-30) Anion Gap 18 (5-15) H Blood Urea Nitrogen 15 mg/dL (7-23) Creatinine 0.5 mg/dL (0.5-0.9) Estimat Glomerular Filtration Rate > 60 mL/min (>60) Glucose Level 105 mg/dL (74-106) Calcium Level 8.6 mg/dL (8.6-10.2) Total Creatine Kinase 510 U/L (26-140) H Height (Feet): 5 Height (Inches): 5.00 Weight (Pounds): 150 General Appearance: no apparent distress, alert Cardiovascular: normal rate Respiratory/Chest: normal breath sounds, no respiratory distress Abdominal Exam: normal bowel sounds, non tender Olesya Paula N.P. Sep 04, 2016 10:26
[2016-09-04 12:00] VITALS: BP 138/59
[2016-09-04 16:00] VITALS: BP 139/65
[2016-09-04] MEDS ORDERED: Tubing IV Secondary IV ONE (16:44)
[2016-09-04] MEDS ORDERED: NS 275ml ONE (16:44)
[2016-09-04] MEDS ORDERED: VANCO 1 GR1 GM/250 M IV (17:11)
--- NOTE | 2016-09-07 13:37 | Discharge Summary ---
Discharge Summary Hospital Course Date of Admission Aug 26, 2016 at 12:48 Date of Discharge Sep 04, 2016 at 16:45 Admitting Diagnosis SEPSIS HPI Marcella Cano is a 71 year old female who was admitted on Aug 26, 2016 at 12:48 for Sepsis Hospital Course dc summary#[id number] Discharge Medications New Medications: Ertapenem (Invanz) 1 Gm Vial 1 GM IM DAILY for 7 Days, VIAL Vancomycin/0.9 % Sod Chloride (Vanco 1 Gram/250 ml-0.9% NaCl) 1 Gm/250 Ml Plast..bag 1 GM IV DAILY for 7 Days, #7 BAG Continued Medications: Amlodipine Besylate* (Amlodipine Besylate*) 10 Mg Tablet 10 MG ORAL DAILY, TAB Aripiprazole* (Abilify*) 15 Mg Tablet 15 MG ORAL DAILY, TAB 0 Refills Aspirin* (Aspir 81*) 81 Mg Tablet.dr 81 MG ORAL DAILY, TAB Atorvastatin Calcium* (Atorvastatin Calcium*) 20 Mg Tablet 10 MG ORAL BEDTIME, TAB Citalopram Hydrobromide* (Citalopram Hbr*) 20 Mg Tablet 20 MG ORAL DAILY, TAB Fluticasone/Salmeterol (Advair 100-50 Diskus) 1 Each Blst.w.dev 1 PUFF INH EVERY 12 HOURS, EA Memantine Hcl* (Namenda*) 5 Mg Tablet 5 MG ORAL TWICE A DAY, TAB Discontinued Medications: Vancomycin/0.9 % Sod Chloride (Vanco 1 Gram/250 ml-0.9% NaCl) Unknown Strength Plast..bag Unknown Dose IV, BAG Discharge Condition Upon Discharge: stable Discharge Disposition Patient was discharged to SNF Discharge Diagnoses: Felipe (Isaac)Marcella NP Sep 07, 2016 13:37
--- NOTE | 2016-09-08 02:15 | Discharge Summary 2 SIG ---
DATE OF ADMISSION: 08/26/2016 DATE OF DISCHARGE: 09/04/2016 REASON FOR ADMISSION: 71-year-old female with a history of dementia, hypertension, COPD, and hyperlipidemia, was sent from the facility where she resides, for altered level of consciousness. In the emergency department, she found to be febrile and tachycardic with leukocytosis. She was lethargic and exhibited nuchal rigidity. She had elevated LFT. Urinalysis, chest x-ray were negative. Lactic acid -2.7, leukocytosis-16.5. Elevated CK and renal parameters. The patient undergone lumbar puncture, started on empiric antibiotic. Cerebrospinal fluid was clear. Patient was admitted to the hospital for further management. ADMITTING DIAGNOSES: 1. Acute encephalopathy. 2. Severe sepsis. 3. Transaminitis. 4. Chronic obstructive pulmonary disease. 5. Rhabdomyolysis. 6. Acute renal failure. HOSPITAL COURSE: The patient admitted to telemetry floor. The patient started on IV fluids. The patient started on empiric antibiotics. The patient initially kept NPO. ID consult was requested for management antibiotic for sepsis. Blood culture were negative. Influenza screen was negative. Cerebrospinal fluid culture was negative. Urine culture was negative. Cerebrospinal fluid, no VDRL. ID also wanted to rule out acute cholecystitis due to the elevated LFT. Subsequently, abdominal ultrasound was done, which revealed mildly dilated common bile duct, central intrahepatic ducts, and mild right hydronephrosis. Antibiotics were optimized as per ID recommendation. Prior to discharge, changed to meropenem and vancomycin for seven re days. Supplemental oxygen and pulmonary toilet provided as need, to keep saturation above 92%. GI seen the patient due to the failure to thrive and elevated LFT. According to the GI, the patient needed G-tube. He stated that LFT likely secondary to infection. LFTs were closely monitored, noted trend down. Family refused G-tube placement. Swallow evaluation revealed dysphagia, but no overt aspiration. Diet to be continued as per speech therapist recommendation with strict aspiration precautions. Push p.o. fluid. CT of the abdomen and pelvis revealed no other evidence of acute abdominopelvic disease, cholelithiasis but no evidence of acute cholecystitis and no abscess. Electrolytes were closely monitored and corrected as needed. Neurologist seen the patient due to the acute encephalopathy. CT of the head revealed no acute intracranial pathology, but revealed multiple old infarcts. According to neurologist, acute encephalopathy was likely secondary to underlying dementia and significant metabolic derangement on initial presentation. He recommended to hold all unessential medications such as Namenda, Abilify, statin, which were hold, and to continue IV fluid and IV antibiotics to cover underlying infection. The patient also exhibited evidence of rhabdomyolysis initially. CK was closely monitored and was trending down. Renal parameters down to normal. Rhabdomyolysis was likely secondary to dehydration. Electrolytes stable after replacement. DVT prophylaxis provided. Psychiatrist seen and evaluated the patient. Started the patient on Zyprexa to help with acetylcholine- dopamine imbalance. Psychiatrist diagnosed the patient with delirium secondary to general medical condition. The patient was working with physical therapy. The patient was DNR status, and clinically stable. The patient was clinically stable for transfer to the shelter facility. DISCHARGE DIAGNOSES: 1. Sepsis. 2. Rhabdomyolysis. 3. Acute renal failure. 4. Acute on chronic toxic metabolic encephalopathy. 5. Lactic acidosis. 6. Advanced senile dementia. 7. Chronic obstructive pulmonary disease. 8. Supplemental oxygen and pulmonary toilet provided as needed. 9. Cholelithiasis. 10. Transaminitis. 11. Electrolyte imbalance: Hypernatremia, Hypokalemia - resolved. 12. Dysphagia. 13. Delirium secondary to general medical condition. 14. History of multiple cerebrovascular accidents. DISCHARGE MEDICATIONS: See medication reconciliation list. The patient needs one week of IV antibiotics. DISCHARGE INSTRUCTIONS: The patient discharged to the shelter facility. FOLLOWUP: Follow up with medical doctor at the facility. Evangelist Cast M.D. Marcella Wang (Vanchtein) N.Sapphire DR: Marialuisa JOB#: [id number] CC: [id number]
== END 2016-09-04 16:45 | DRG 871 ==
LOC: EDBD 11:28 → EMR 11:53 → EDBEDREQ 12:10 → 2E 12:48 → EDBEDREQ 13:11 → 2E 14:54 → 3E 08-30 17:40
PROC: 009U3ZX Drainage of Spinal Canal, Percutaneous Approach, Diagnostic (ICD-10-PCS; principal; 2016-08-26)
DX: A41.9 Sepsis, unspecified organism (principal); G92 Toxic encephalopathy; N17.9 Acute kidney failure, unspecified; E87.0 Hyperosmolality and hypernatremia; M62.82 Rhabdomyolysis; N13.30 Unspecified hydronephrosis; F05 Delirium due to known physiological condition; F03.90 Unspecified dementia, unspecified severity, without behavioral disturbance, psychotic disturbance, mood disturbance, and anxiety; R13.10 Dysphagia, unspecified; R65.20 Severe sepsis without septic shock; I10 Essential (primary) hypertension; J44.9 Chronic obstructive pulmonary disease, unspecified; E78.5 Hyperlipidemia, unspecified; Z66 Do not resuscitate; K80.20 Calculus of gallbladder without cholecystitis without obstruction; E87.6 Hypokalemia; Z86.73 Personal history of transient ischemic attack (TIA), and cerebral infarction without residual deficits; Z88.8 Allergy status to other drugs, medicaments and biological substances; R62.7 Adult failure to thrive
CPT/HCPCS: 36415; 62270; 70450; 71010; 74177; 74230; 76700; 80048; 80053; 80069; 80202; 81003; 82140; 82550; 82553; 82945; 83605; 83735; 83880; 84100; 84157; 84484; 85007; 85025; 85610; 85730; 86592; 86710; 87040; 87070; 87081; 87086; 87205; 89051; 93005; 94664